=== PATIENT | male | born 1955 | race African-American/Black ===

== ENCOUNTER 2023-09-13 08:53 | Outpatient (CLI) | payer OTHER, MEDICARE, SELFPAY ==
[2023-09-13 19:23] LABS: Basophils Absolute Auto 0.1 K/mm3 (0.0-0.1); Basophils Percent Auto 0.8 % (0.2-1.2); Eosinophils Absolute Auto 0.1 K/mm3 (0-0.3); Eosinophils Percent Auto 1.1 % (0-4.4); Hematocrit 39.9 % (42.0-52.0); Hemoglobin 12.2 g/dL (14.0-18.0); Immature Granulocyte Absolute 0.01 K/mm3 (0.00-0.031); Immature Granulocyte Percent A 0.2 % (0-0.5); Lymphocytes Absolute Auto 2.55 K/mm3 (0.9-3.2); Lymphocytes Percent Auto 39.6 % (18.3-44.2); Mean Corpuscular HGB Conc 30.6 g/dl (32-36); Mean Corpuscular Hemoglobin 22.9 pg (26-34); Mean Platelet Volume 10.7 fl (7.4-10.4); Monocytes Absolute Auto 0.5 K/mm3 (0.1-0.6); Monocytes Percent Auto 7.8 % (2.6-8.5); Neutrophils Absolute Auto 3.3 K/mm3 (1.3-6.7); Neutrophils Percent Auto 50.5 % (45.5-73.1); Platelet Count Result 257 k/mm3 (150-375); Red Blood Count 5.32 M/mm3 (4.6-6.20); Red Cell Distribution Width 15.3 % (11.5-14.5); White Blood Count 6.4 K/mm3 (4.5-10.0)
[2023-09-13 20:33] LABS: Alanine Aminotransferase 16 U/L (6-50); Albumin Level 4.5 g/dL (3.5-5.1); Alkaline Phosphatase 69 U/L (38-126); Anion Gap 10 mmol/L (8-16); Aspartate Amino Transferase 44 U/L (17-59); Bilirubin,Total 0.5 mg/dL (0.2-1.3); Blood Urea Nitrogen 13 mg/dL (9-20); Carbon Dioxide 25 mmol/L (22-30); Chloride 103 mmol/L (98-107); Cholesterol 173 mg/dL (0-200); Estimated Glomerular Filt Rate > 60; Glucose 91 mg/dL (65-110); HDL Direct 42 mg/dL; Potassium 4.3 mmol/L (3.4-5.0); Sodium 138 mmol/L (137-145); Triglycerides 90 mg/dL (<150)
[2023-09-13 20:50] LABS: LDL Cholesterol Direct 98 mg/dL
[2023-09-13 20:57] LABS: Vitamin D 25 Hydroxy 42.5 ng/mL
== END 2023-09-13 08:54 | disposition home or self-care (01) ==
LOC: ANHGOSHLAB 08:55
PROVIDERS: PCP Family Medicine; Visit Provider Family Medicine
DX: Z00.00 Encounter for general adult medical examination without abnormal findings (principal); I10 Essential (primary) hypertension; E53.8 Deficiency of other specified B group vitamins; E78.5 Hyperlipidemia, unspecified; E55.9 Vitamin D deficiency, unspecified
CPT/HCPCS: 36415; 80053; 80061; 82306; 82607; 84443; 85025

== ENCOUNTER 2024-02-24 08:01 | Outpatient (CLI) | payer OTHER, MEDICARE, SELFPAY ==
[2024-02-24 19:13] LABS: Hematocrit 40.3 % (42.0-52.0); Mean Corpuscular HGB Conc 29.8 g/dl (32-36); Mean Corpuscular Hemoglobin 22.9 pg (26-34); Mean Corpuscular Volume 77.1 fl (80-100); Mean Platelet Volume 11.4 fl (7.4-10.4); Platelet Count Result 288 k/mm3 (150-375); Red Blood Count 5.23 M/mm3 (4.6-6.20); Red Cell Distribution Width 15.2 % (11.5-14.5); White Blood Count 5.7 K/mm3 (4.5-10.0)
[2024-02-24 19:25] LABS: Alanine Aminotransferase 17 U/L (6-50); Albumin Level 4.6 g/dL (3.5-5.1); Alkaline Phosphatase 65 U/L (38-126); Anion Gap 8 mmol/L (4-12); Aspartate Amino Transferase 35 U/L (17-59); Bilirubin,Total 0.7 mg/dL (0.2-1.3); Blood Urea Nitrogen 11 mg/dL (9-20); Calcium 8.9 mg/dL (8.4-10.2); Carbon Dioxide 25 mmol/L (22-30); Chloride 106 mmol/L (98-107); Cholesterol 147 mg/dL (0-200); Estimated Glomerular Filt Rate > 60; Glucose 88 mg/dL (65-110); HDL Direct 36 mg/dL; Potassium 4.2 mmol/L (3.4-5.0); Sodium 139 mmol/L (137-145); Triglycerides 77 mg/dL (<150)
[2024-02-24 19:39] LABS: LDL Cholesterol Direct 91 mg/dL
[2024-02-24 19:57] LABS: Prostate Specific Antigen 1.5 ng/mL (< OR = 4.0)
[2024-02-24 20:05] LABS: Vitamin D 25 Hydroxy 53.5 ng/mL
== END 2024-02-24 08:02 | disposition home or self-care (01) ==
PROVIDERS: PCP Family Medicine; Visit Provider Nurse Practitioner
DX: Z00.00 Encounter for general adult medical examination without abnormal findings (principal); I10 Essential (primary) hypertension; E55.9 Vitamin D deficiency, unspecified; Z12.5 Encounter for screening for malignant neoplasm of prostate
CPT/HCPCS: 36415; 80053; 80061; 82306; 84153; 84443; 85027; G0103

== ENCOUNTER 2024-06-28 09:01 | Outpatient (CLI) | payer OTHER, MEDICARE, SELFPAY ==
[2024-06-28 18:47] LABS: Basophils Percent Auto 0.7 % (0.2-1.2); Eosinophils Absolute Auto 0.1 K/mm3 (0-0.3); Hematocrit 41.6 % (42.0-52.0); Hemoglobin 12.5 g/dL (14.0-18.0); Immature Granulocyte Absolute 0.01 K/mm3 (0.00-0.031); Immature Granulocyte Percent A 0.2 % (0-0.5); Lymphocytes Absolute Auto 2.44 K/mm3 (0.9-3.2); Lymphocytes Percent Auto 40.3 % (18.3-44.2); Mean Corpuscular Hemoglobin 23.5 pg (26-34); Mean Platelet Volume 10.1 fl (7.4-10.4); Monocytes Absolute Auto 0.4 K/mm3 (0.1-0.6); Monocytes Percent Auto 6.8 % (2.6-8.5); Neutrophils Absolute Auto 3.1 K/mm3 (1.3-6.7); Platelet Count Result 309 k/mm3 (150-375); Red Blood Count 5.33 M/mm3 (4.6-6.20); Red Cell Distribution Width 15.4 % (11.5-14.5); White Blood Count 6.1 K/mm3 (4.5-10.0)
[2024-06-28 19:21] LABS: Alanine Aminotransferase 17 U/L (6-50); Albumin Level 4.8 g/dL (3.5-5.1); Alkaline Phosphatase 64 U/L (38-126); Anion Gap 16 mmol/L (4-12); Aspartate Amino Transferase 53 U/L (17-59); Bilirubin,Total 0.6 mg/dL (0.2-1.3); Blood Urea Nitrogen 10 mg/dL (9-20); Calcium 9.4 mg/dL (8.4-10.2); Carbon Dioxide 28 mmol/L (22-30); Chloride 89 mmol/L (98-107); Estimated Glomerular Filt Rate > 60; Glucose 85 mg/dL (65-110); Potassium 3.8 mmol/L (3.4-5.0); Sodium 133 mmol/L (137-145)
== END 2024-06-28 09:02 | disposition home or self-care (01) ==
LOC: ANHGOSHLAB 09:03
PROVIDERS: PCP Family Medicine; Visit Provider Family Medicine
DX: L29.9 Pruritus, unspecified (principal); I10 Essential (primary) hypertension; E78.5 Hyperlipidemia, unspecified; E03.9 Hypothyroidism, unspecified
CPT/HCPCS: 36415; 80053; 84443; 85025

== ENCOUNTER 2024-08-16 13:45 | Outpatient (CLI) | payer OTHER, MEDICARE, SELFPAY ==
--- NOTE | ~2024-08-16 | XR_ITS ---
CHEST RADIOGRAPH, PA AND LATERAL CLINICAL HISTORY: R05.3 - Chronic cough . COMPARISON: None available TECHNIQUE: PA and lateral views of the chest. FINDINGS The cardiomediastinal silhouette is unremarkable. The lungs are clear. Visualized osseous structures and soft tissues are unremarkable. IMPRESSION: No focal infiltrate or effusion. Reviewed, dictated and finalized at location A. [facility] [employer]
== END 2024-08-16 13:46 | disposition home or self-care (01) ==
LOC: MICIMG 13:46
PROVIDERS: PCP Family Medicine; Visit Provider Family Medicine
DX: R05.3 Chronic cough (principal)
CPT/HCPCS: 71046

== ENCOUNTER 2024-09-14 09:13 | Outpatient (CLI) | payer OTHER, MEDICARE, SELFPAY ==
[2024-09-14 13:14] LABS: Alanine Aminotransferase 19 U/L (6-50); Albumin Level 4.7 g/dL (3.5-5.1); Alkaline Phosphatase 70 U/L (38-126); Anion Gap 9 mmol/L (4-12); Aspartate Amino Transferase 62 U/L (17-59); Bilirubin,Total 0.8 mg/dL (0.2-1.3); Blood Urea Nitrogen 11 mg/dL (9-20); Calcium 9.3 mg/dL (8.4-10.2); Carbon Dioxide 28 mmol/L (22-30); Chloride 104 mmol/L (98-107); Cholesterol 196 mg/dL (0-200); Estimated Glomerular Filt Rate > 60; Glucose 96 mg/dL (65-110); HDL Direct 47 mg/dL; Potassium 4.3 mmol/L (3.4-5.0); Sodium 141 mmol/L (137-145); Triglycerides 84 mg/dL (<150)
[2024-09-14 13:32] LABS: LDL Cholesterol Direct 108 mg/dL
[2024-09-14 13:35] LABS: Hemoglobin A1C 6.5 % (<5.7)
== END 2024-09-14 09:14 | disposition home or self-care (01) ==
LOC: ANHGOSHLAB 09:15
PROVIDERS: PCP Family Medicine; Visit Provider Family Medicine
DX: E78.5 Hyperlipidemia, unspecified (principal); I10 Essential (primary) hypertension; R73.9 Hyperglycemia, unspecified; E03.9 Hypothyroidism, unspecified; E53.8 Deficiency of other specified B group vitamins
CPT/HCPCS: 36415; 80053; 80061; 82607; 83036; 84443

== ENCOUNTER 2024-11-13 09:49 | Outpatient (CLI) | payer MEDICARE, OTHER, SELFPAY ==
--- OUTSIDE RECORDS SUMMARY | 2024-11-13 10:29 | XMS_ITS | Continuity of Care Document ---
Author Organization [facility] nters Address [address] [place] [address] Phone Care Team Providers Care Pharmacy Salesperson Name Role Phone Jovanny Cook MD Unavailable Unavailable Allergies, Adverse Reactions, Alerts Substance Reaction Status Criticality No Known Allergies Active No Inform ation Medications Medication Instructions Dosage Effective Dates (start - stop) Status Comments rosuvastatin 10 mg tablet take 1 tablet by oral route every day 10 MG - Active hydrochlorothiazide 12.5 mg tablet take 1 tablet by oral route every day 12.5 MG - Active temporary supply fenofibrate nanocrystallized 145 mg tablet take 1 by Oral route every day 1 - Active temporary supply Pepcid 40 mg tablet take 1 tablet by oral route 2 times every day at bedtime 40 MG - Active enalapril 5 mg-hydrochlorothiazide 12.5 mg tablet take 1 tablet by oral route every day 1.00 tablet - Active temporary supply Tylenol Arthritis Pain 650 mg tablet,extended release take 1 tablet by oral route every 8 hours as needed swallowing whole with water. Do not break, crush, dissolve and/or chew. as needed 650 MG - Active Viagra 100 mg tablet take 1 tablet by oral route every day as needed approximately 1 hour before sexual activity 100 MG - Active enalapril 5 mg-hydrochlorothiazide 12.5 mg tablet take 1 tablet by oral route every day 1.00 tablet - No Longer Active temporary supply rosuvastatin 10 mg tablet take 1 tablet by oral route every day 10 MG - No Longer Active triamcinolone acetonide 0.5 % topical cream apply by topical route 2 times every day a thin layer to the affected area(s) 0.00 - No Longer Active Pepcid 40 mg tablet take 1 tablet by oral route 2 times every day at bedtime 40 MG - No Longer Active hydrochlorothiazide 12.5 mg tablet take 1 tablet by oral route every day 12.5 MG No Longer Active temporary supply Tylenol Arthritis Pain 650 mg tablet,extended release take 1 tablet by oral route every 8 hours as needed swallowing whole with water. Do not break, crush, dissolve and/or chew. as needed 650 MG - No Longer Active fenofibrate nanocrystallized 145 mg tablet take 1 by Oral route every day 1 - No Longer Active temporary supply Procedures Procedure Date OV EST DETAILED OV EST DETAILED OV EST COMPREHENSIVE OV EST COMPREHENSIVE OV EST COMPREHENSIVE OV EST COMPREHENSIVE OV EST COMPREHENSIVE OV EST COMPREHENSIVE OV EST DETAILED OV EST COMPREHENSIVE OV EST COMPREHENSIVE OV EST COMPREHENSIVE OV EST COMPREHENSIVE OV EST COMPREHENSIVE STREP A AG, EIA OV EST DETAILED AFTER HOURS CARE OV EST COMPREHENSIVE OV EST DETAILED OV EST COMPREHENSIVE AVULSION OF NAIL PLATE PART COMP1 Surgical trays OV EST MODERATE OV EST COMPREHENSIVE OV EST COMPREHENSIVE OV EST COMPREHENSIVE OV EST COMPREHENSIVE OV EST COMPREHENSIVE OV EST COMPREHENSIVE OV EST COMPREHENSIVE OV EST COMPREHENSIVE OV EST DETAILED URINALYSIS CLINITEK OV EST DETAILED AUDIOMETRY SCREEN DOT PE EST PREV 40 TO 64 YRS OLD 2014 URINALYSIS CLINITEK OV EST COMPREHENSIVE PREVENTIVE TEST 40 TO 64 YRS OLD 2013 INJECTION INFLUENZA 3 GT SPLIT VIRUS Aug OV EST COMPREHENSIVE OV EST COMPREHENSIVE OV EST COMPREHENSIVE INJECTION INFLUENZA 3 GT SPLIT VIRUS Jul PREVENTIVE TEST 40 TO 60 YRS OLD 2012 WORK Physical Billed To Insurance OV EST MODERATE OV EST COMPREHENSIVE OV EST COMPREHENSIVE OV EST COMPREHENSIVE OV EST COMPREHENSIVE OV EST COMPREHENSIVE VARICELLA ZOSTER IMMUNIZATION ADMIN ONEVACCINE INTRMUSCUL AR OV EST COMPREHENSIVE OV EST COMPREHENSIVE OV EST DETAILED OV EST DETAILED OV EST COMPREHENSIVE OV EST COMPREHENSIVE Advance Directives Directive Yes / No Effective Date File Name No Information Encounters Encounter Description Practice Location Reason(s) For Visit Diagnoses Date Provider Providers Copied on Encounter OV EST DETAILED [facility], [address], [place], [place], [id number], [place] tel:[phone] [facility] Follow Up of GERD (telehealth) (chief complaint)Fol low Up of Hyperlipidemi a (telehealth) (chief complaint)Fol low Up of Hypertension (telehealth) (chief complaint) Pure hyperglyceri demiaEssenti al (primary) hypertension Chronic GERDArthriti s, wrist -202 0 Cook Jovanny. [address] [facility], [id number] [place], [id number], [place]. tel:[phone] OV EST DETAILED [facility], [address], [place], [place], [id number], [place] tel:[phone] [facility] Follow Up of Hypertension (chief complaint)Fol low Up of Hyperlipidemi a (chief complaint)Fol low Up of GERD (chief complaint)Hea lth Maintenance (chief complaint) Essential hypertension Chronic GERDDietary counselingEx ercise counselingHy janina Palm s, wrist Dec- 0 Alisia Martin. [address], [id number] 0NS, [place], [place], [id number], [place]. tel: [phone] [facility], [address], [place], [place], [id number], [place] tel: [phone] [facility] hoarse voice (chief complaint)hea lth maintenance (chief complaint) Chronic hoarsenessBM I 38.0-38.9,ad ult 0 Joey Petty. [address], [id number] 0NS, [place], [place], [id number], [place]. tel: [phone] [facility], [address], [place], [place], [address], [place] tel: [phone] [facility] Follow Up of Hypertension (chief complaint)Fol low Up of Hyperlipidemi a (chief complaint)Fol low Up of GERD (chief complaint)Fol low Up of Erectile dysfunction (chief complaint)Hea lth Maintenance (chief complaint)Fat igue (chief complaint) Hypertension , benignPure hypercholest erolemia, unspecifiedC hronic GERDObesity, unspecified 9 Cookyenni Petty. [address], [id number] 0NS, [place], [place], [address], [place]. tel: [phone] [facility], [address], [place], [place], [id number], [place] tel: [phone] [facility] Follow Up of Labs (chief complaint)Hea lth Maintenance (chief complaint) Pure hypercholest erolemia, unspecifiedH ypertension, benignObesit y, unspecified 9 Cook Jovanny. [address], [id number] 0NS, [place], [place], [id number], [place]. tel: [phone] [facility], [address], [place], [place], [id number], tel: [phone] [facility] Follow Up of hypertension (chief complaint)Fol low Up of ED (chief complaint)Fol low Up of GERD (chief complaint)Fol low Up of hyperlipidemi a (chief complaint)hea lth maintenance (chief complaint) Male erectile dysfunction, unspecifiedH ypertension, benignPure hyperglyceri demiaChronic GERDObesity, unspecified [address] [facility]. [address], [id number] 0NS, [place], [place], [address], [place]. tel: [phone] [facility], [address], [place], [place], [id number], tel: [phone] [facility] hypertension (chief complaint)hyp erlipidemia (chief complaint)Hea lt Maintenance (chief complaint) Hypertension , benignHypert riglyceridem iaChronic GERDErectile dysfunction, unspecified erectile dysfunction typeBody mass index (BMI) 37.0-37.9, adult 9 [facility] Alek. [address] [id number] 0NS, [place], [place], [address], [place]. tel: [phone] [facility], [address], [place], [place], [address], [place] tel: [phone] [facility] Follow Up of hypertension (chief complaint)Fol low Up of erectile dysfunction (chief complaint)Fol low Up of hyperlipidemi a (chief complaint)Fol low Up of HSV (chief complaint)hea lt maintenance (chief complaint) Male erectile dysfunction, unspecifiedP ure hyperglyceri demiaEssenti al (primary) hypertension Obesity, unspecifiedC hronic GERD 9 [facility] Jovanny. [address], [id number] 0NS, [place], [place], [address], [place]. tel: [phone] [facility], [address], [place], [place], [address], [place] tel: [phone] [facility] Follow Up of ER Visit (chief complaint)Hea lth Maintenance (chief complaint) ColitisBMI 38.0-38.9,ad ultDietary counselingHe alth educationPos itive depression screening 8 Tieri Patience. [address], [id number] 0NS, [place], [place], [address], [place]. tel: [phone] [facility], [address], [place], [place], [address], [place] tel: [phone] [facility] Back pain (chief complaint)Fol low Up of Hypertension (chief complaint)Fol low Up of Hyperlipidemi a (chief complaint)Fol low Up of Erectile dysfunction (chief complaint)Hea lth Maintenance (chief complaint) Essential (primary) hypertension Pure hyperglyceri demiaMale erectile dysfunction, unspecifiedO besity, unspecified 8 Cook Jovanny. [address], [id number] 0NS, [place], [place], [id number], [place]. tel: [phone] [facility], [address], [place], [place], [address], [place] tel: [phone] [facility] Family [facility] Follow Up of Hypertriglyce ridemia (chief complaint)Hea lth Maintenance (chief complaint) Iron deficiency anemia, unspecified iron deficiency anemia typeObesity, unspecifiedO ther hyperlipidem ia 8 Cook Jovanny. [address], [id number] 0NS, [place], [place], [address], [place]. tel: [phone] [facility], [address], [place], [place], [address], [place] tel: [phone] [facility] Hypertension (follow up) (chief complaint)Fol low Up of Hyperglycerid emia (chief complaint)Hea lth Maintenance (chief complaint) Essential (primary) hypertension Pure hyperglyceri demiaMale erectile dysfunction, unspecifiedH erpes genitalis in menObesity, unspecified 8 [facility] Jovanny. [address], [id number] 0NS, [place], [place], [id number], [place]. tel: [phone] [facility], [address], [place], [place], [address], [place] tel: [phone] [facility] hypertension (chief complaint)hyp erlipidemia (chief complaint)Hea lth Maintenance (chief complaint) Essential (primary) hypertension Male erectile dysfunction, unspecifiedP ure hyperglyceri demiaObesity , unspecifiedH erpes genitalis in men Dec- 8 [facility] Jovanny. [address], [id number] 0NS, [place], [place], [id number], [place]. tel: [phone] [facility], [address], [place], [place], [address], [place] tel: [phone] [facility] hypertension (chief complaint)Hea lth Maintenance (chief complaint) Pure hyperglyceri demiaEssenti al (primary) hypertension Obesity, unspecified Sep- 7 Cook Jovanny. [address], [id number] 0NS, [place], [place], [id number], [place]. tel: [phone] [facility], [address], [place], [place], [address], [place] tel: [phone] [facility] sore throat (chief complaint) Acute pharyngitis, unspecified etiology Sep-3 0 7 Kiranwilliam Alek. [address] [id number] 0NS, [place], [place], [id number], [place]. tel: [phone] [facility], [address], [place], [place], [address], [place] tel: [phone] [facility] Follow Up of Hyperlipidemi a (chief complaint)Fol low Up of Hypertension (chief complaint)Fol low Up of Edema (chief complaint)Hea lth Maintenance (chief complaint) Essential (primary) hypertension Pure hyperglyceri demiaObesity , unspecifiedE ncounter for screening and preventative care Jun- 7 Joey Petty. [address], [id number] 0NS, [place], [place], [id number], [place]. tel: [phone] [facility], [address], [place], [place], [address], [place] tel: [phone] [facility] HTN (chief complaint)Hea lth maintenance (chief complaint)hyp erlipidemia (chief complaint) Essential (primary) hypertension Pure hyperglyceri demiaObesity , unspecifiedH ealth educationCol on cancer screening 7 Shauna Bonds. [address], [id number] 0NS, [place], [place], [facility], [place]. tel: [phone] [facility], [address], [place], [place], [address], [place] tel: [phone] [facility] Family [facility] Hypertension (chief complaint)Col d symptoms (chief complaint) Allergic rhinitis, unspecifiedE ssential (primary) hypertension Pure hyperglyceri demiaHerpes genitalis in menObesity, unspecified 7 Joey Petty. [address], [id number] 0NS, [place], [place], [address], [place]. tel: [phone] [facility], [address], [place], [place], [id number], [place] tel: [phone] [facility] toe nail removal (chief complaint) Ingrown left big toenailContu alyssa of left great toe with damage to nail, init encntr 6 Joey Petty. [address], [id number] 0NS, [place], [place], [address], [place]. tel: [phone] [facility], [address], [place], [place], [address], [place] tel: [phone] [facility] Follow Up of Paronychia of L great toe (chief complaint) Ingrown left big toenailHerpe s genitalis in menOther obesity due to excess calories 6 [facility]. [address], [id number] 0NS, [place], [place], [address], [place]. tel: [phone] [facility], [address], [place], [place], [address], [place] tel: [phone] [facility] Follow Up of Paronychia of L great toe (chief complaint) Paronychia of great toe of left footEssentia l (primary) hypertension Other obesity due to excess calories 6 [facility]. [address], [id number] 0NS, [place], [place], [address], [place]. tel: [phone] [facility], [address], [place], [place], [address], [place] tel: [phone] [facility] Hypertension (chief complaint)kallie t pain (chief complaint) Paronychia of great toe of left footEssentia l (primary) hypertension Pure hyperglyceri demiaUnspeci fied contact dermatitis, unspecified causeObesity , unspecified Jun- 6 [facility]. [address], [id number] 0NS, [place], [place], [address], [place]. tel: [phone] [facility], [address], [place], [place], [address], [place] tel: [phone] [facility] Follow Up of Candidiasis of penis (chief complaint) Herpes genitalis in menEssential (primary) hypertension Obesity, unspecified 0 6 [facility]. [address], [id number] 0NS, [place], [place], [address], [place]. tel: [phone] [facility], [address], [place], [place], [address], [place] tel: [phone] [facility] Follow Up of Hypertension (chief complaint)Fol low Up of ED (chief complaint)Fol low Up of Eczema (chief complaint) Essential (primary) hypertension Pure hyperglyceri demiaPedal edemaCandidi asis of penisObesity , unspecifiedV isit for suture removal Gee-0 6-201 6 [facility]. [address], [id number] 0NS, [place], [place], [address] [place] [address], [place]. tel: [phone] [facility], [address], [place], [place], [address], tel: [phone] [facility] Follow Up of Hypertension (chief complaint)Fol low Up of Hyperglycerid emia (chief complaint)Fol low Up of ED (chief complaint)Fol low Up of Eczema (chief complaint) Essential (primary) hypertension Pure hyperglyceri demiaMale erectile dysfunction, unspecifiedU nspecified contact dermatitis, unspecified causeObesity , unspecified Mar-0 8-201 6 [facility]. [address], [id number] 0NS, [place], [place], [address] [place] [address], [place]. tel: [phone] [facility], [address], [place], [place], [id number], [place] tel: [phone] [facility] Hyperlipidemi a (follow up) med refill (chief complaint)Hyp ertension (follow up) med refill (chief complaint)ecz mendez cream triamcinolone refill (chief complaint)ED med refill (chief complaint) Essential (primary) hypertension Pure hyperglyceri demiaMale erectile dysfunction, unspecifiedO besity, unspecifiedU nspecified contact dermatitis, unspecified cause Dec-0 7-201 5 [facility]. [address], [id number] 0NS, [place], [place], [address], [place]. tel: [phone] OV [facility], [address], [place], [place], [address], [place] tel: [phone] [facility] Hyperlipidemi a med refills (chief complaint)Hyp ertension (follow up) (chief complaint)tri amcinolone acetonide refills (chief complaint) Essential (primary) hypertension Pure hyperglyceri demiaUnspeci fied contact dermatitis, unspecified causeObesity , unspecified Joey Petty. [address], [id number] 0NS, [place], [place], [id number], [place]. tel: [phone] [facility], [address], [place], [place], [address], [place] tel: [phone] [facility] HTN (chief complaint)HYP ERLIPIDEMIA (chief complaint)ECZ MENDEZ (chief complaint) Hypertension , benignHypert riglyceridem iaErectile dysfunctionE [facility] Health education 5 Tonio Bowman. [address], [id number] 0NS, [place], [place], [address], [place]. tel: [phone] [facility], [address], [place], [place], [address], [place] tel: [phone] [facility] Physical chauffer license. (chief complaint) GENERAL MEDICAL EXAMHealth examination of defined subpopulatio nsObesity 5 Betsy Shafer. [address], [id number] 0NS, [place], [place], [id number], [place]. tel: [phone] [facility], [address], [place], [place], [address], [place] tel: [phone] [facility] HTN (chief complaint)hyp ertriglycerid emia (chief complaint)ED (chief complaint) Hypertension , benignHypert riglyceridem iaErectile dysfunctionO [facility] 5 Joey Petty. [address], [id number] 0NS, [place], [place], [id number], [place]. tel: [phone] PREVENTIVE TEST 40 TO 64 YRS OLD [facility], [address], [place], [place], [id number], [place] tel: [phone] [facility] wellness exam (chief complaint) Well adult health checkHyperte nsion, benignHypert riglyceridem iaErectile dysfunctionE czemaObesity 4 [facility]. [address], [id number] 0NS, [place], [place], [id number], [place]. tel: [phone] [facility], [address], [place], [place], [address], [place] tel: [phone] [facility] rash (chief complaint)Med refill (chief complaint) Screening for depressionHy pertension, benignHypert riglyceridem iaErectile dysfunctionE czemaObesity 4 [facility]. [address], [id number] 0NS, [place], [place], [address], [place]. tel: [phone] [facility], [address], [place], [place], [address], [place] tel: [phone] [facility] neck pain (chief complaint)hyp ertension (chief complaint)hyp erlipidemia (chief complaint) HYPERTENSION BENIGNHypert riglyceridem iaPain, neckObesityD ietary surveillance and counselingEx ercise counseling 4 [facility]. [address], [id number] 0NS, [place], [place], [address], [place]. tel: [phone] [facility], [address], [place], [place], [id number], [place] tel: [phone] [facility] hypertension (chief complaint)hyp ertriglycerid emia (chief complaint)spencer matitis (chief complaint) HYPERTENSION BENIGNHypert riglyceridem iaObesityDie tary counselingEx ercise counselingCa ndidal intertrigoIn fluenza Vaccination 3 [facility]. [address], [id number] 0NS, [place], [place], [address], [place]. tel: [phone] PREVENTIVE TEST 40 TO 60 YRS OLD [facility], [address], [place], [place], [id number], [place] tel: [phone] [facility] Family [facility] work physical (chief complaint) Healthcare maintenanceO besityDietar y counselingEx ercise counselingGE NERAL MEDICAL EXAM 3 No Information [facility], [address], [place], [place], [id number], [place] tel: [phone] [facility] rash (chief complaint) DERMATITIS CONTACT NOS or EczemaObesit y 3 Tucker Christopher. [address], [id number] 0NS, [place], [address], [place]. tel: [phone] [facility], [address], [place], [place], [id number], [place] tel: [phone] [facility] rash (chief complaint) Hypertension , benignHyperu ricemiaDerma titisObesity Hypertriglyc eridemia 3 [facility]. [address], [id number] 0NS, [place], [place], [address], [place]. tel: [phone] [facility], [address], [place], [place], [id number], [place] tel: [phone] [facility] hypertension (chief complaint) Hypertriglyc eridemiaHYPE RTENSION BENIGNHyperu ricemiaObesi ty 3 [facility]. [address], [id number] 0NS, [place], [place], [address], [place]. tel: [phone] [facility], [address], [place], [place], [address], [place] tel: [phone] [facility] Practice hypertension (follow up) (chief complaint)ere ctile dysfunction (chief complaint)nikia at hand swelling (chief complaint) Screening for depressionIM POTENCE ORGANIC ORGANObesity 3 Joey Petty. [address], [id number] 0NS, [place], [place], [address], [place]. tel: [phone] [facility], [address], [place], [place], [address], [place] tel: [phone] [facility] hypertension (follow up) (chief complaint) IMPOTENCE ORGANIC ORGAN 2 Joey Petty. [address], [id number] 0NS, [place], [place], [address], [place]. tel: [phone] [facility], [address], [place], [place], [address], [place] tel: [phone] [facility] hypertension (chief complaint) HYPERTENSION BENIGNObesit y 2 Cookyenni Kento. [address], [id number] 0NS, [place], [place], [address], [place]. tel: [phone] [facility], [address], [place], [place], [id number], [place] tel: [phone] [facility] Nursing imunization (chief complaint) No Information 2 Joey Petty. [address], [id number] 0NS, [place], [place], [address], [place]. tel: [phone] [facility], [address], [place], [place], [address], [place] tel: [phone] [facility] Practice f/u herpes (chief complaint)hyp ertension (chief complaint) ALLERGIC RHINTIS 2 Cookyenni Petty. [address], [id number] 0NS, [place], [place], [address], [place]. tel:[phone] [facility], [address], [place], [place], [address], [place] tel:[phone] [facility] f/u rash to to left side of chest, arm and back (chief complaint) Neuralgia, post-herpeti cHYPERTENSIO N BENIGNObesit y 2 Joey Arenasnando. [address], [id number] 0NS, [place], [place], [address], [place]. tel:[phone] OV [facility], [address], [place], [place], [address], [place] tel:[phone] [facility] shoulder pain (chief complaint) Herpes zoster without mention of complication HYPERTENSION BENIGNIMPOTE NCE ORGANIC ORGANATOPIC DERMATITUS-N OS 2 Betsy Shafer. [address], [id number] 0NS, [place], [place], [address], [place]. tel:[phone] [facility], [address], [place], [place], [address], [place] tel:[phone] [facility] hypertension (chief complaint)ere ctile dysfunction (chief complaint) HYPERTENSION BENIGNIMPOTE NCE ORGANIC ORGANObesity Other atopic dermatitis and related conditionsHY PERTENSION BENIGNObesit y 1 Joey Arenasnando. [address], [id number] 0NS, [place], [place], [address], [place]. tel:[phone] Family History Family Member Type Diagnosis Age At Onset Problem (finding) No family history of St roke Mother Problem (finding) Diabetes mellitus Problem (finding) No family history of Ca ncer Problem (finding) No family history of Di abetes mellitus Father Problem (finding) Hypertension Father Problem (finding) Diabetes mellitus Mother Problem (finding) Hypertension Problem (finding) No family history of Hy pertension Immunizations Vaccine Date Status Comments tetanus and diphtheria toxoids, adsorbed, preservative free, for adult use not administered Source: New Immuniza tion Record Influenza, seasonal, injectable not administered Source: New Immuniza tion Record Influenza, seasonal, injectable administered Source: New Immuniza tion Record Flu (split) (3 yrs or older) administered Source: New Immunization Record Zoster administered Source: New Imm unization Record Payers Payer name Insurance type Covered green party ID Authoriza tion(s) [facility] CI [id number] [facility] CI [id number] [facility] CI [id number] Social History Type Description Quantity Date Captured Comments Alcohol Use Details Unknown Caffeine Use Details Unknown Tobacco Use Status No Information Smoking Status No Information Sex Male Sexual Orientation Straight or heterosexual Gender Identity Male Chief Complaint And Reason For Visit From encounter dated '02/26/2020 10:45'. Follow Up of GERD (telehealth) (chief complaint) Follow Up of Hyperlipidemia (telehealth) (chief complaint) Follow Up of Hypertension (telehealth) (chief complaint). Description: Risk factors include family history HTN, gout or CAD, inactive lifestyle, male gender and obesity. Pertinent negatives include chest pain, claudication, dyspnea, fatigue, hematuria, irregular heartbeat/palpitations and vomiting. Reason For Referral Reason For Referral No Information Plan Of Treatment Date Type Action Status Goal BMP. Due on due Goal PHQ-9. Due on du e Goal Dental Exam. Due on 975 due Goal Colon Screening (fecal occult). Due on due Goal Hep C Ab. Due on due Goal Lipid panel. Due on 020 due Goal BMP. Due on due Goal PHQ-9. Due on du e Goal Dental Exam. Due on 975 due Goal Hep C Ab. Due on due Goal Lipid panel. Due on due Goal Colon Screening (fecal occult). Due on due Goal Lipid panel. Due on due Goal Hep C Ab. Due on due Goal Colon Screening (fecal occult). Due on due Goal Dental Exam. Due on 97 due Goal PHQ-9. Due on du e Goal BMP. Due on due Goal BMP. Due on due Goal PHQ-9. Due on du e Goal Colon Screening (fecal occult). Due on due Goal Dental Exam. Due on 97 due Goal Hep C Ab. Due on due Goal Lipid panel. Due on due Goal BMP. Due on due Goal PHQ-9. Due on du e Goal Colon Screening (fecal occult). Due on due Goal Dental Exam. Due on 97 due Goal Hep C Ab. Due on due Goal Lipid panel. Due on due Goal Dental Exam. Due on 97 due Goal Colon Screening (fecal occult). Due on due Goal PHQ-9. Due on du e Goal Hep C Ab. Due on due Goal BMP. Due on due Goal HIV Ab. Due on d ue Goal PHQ-9. Due on du e Goal Hep C Ab. Due on due Goal Colon Screening (fecal occult). Due on due Goal Dental Exam. Due on due Goal Lipid panel. Due on due Goal Dietary manageme nt education, guidance, and counseling completed Goal BMP. Due on due Goal HIV Ab. Due on d ue Goal Hep C Ab. Due on due Goal Dental Exam. Due on due Goal Colon Screening (fecal occult). Due on due Goal PHQ-9. Due on du e Goal Lipid panel. Due on due Goal Colon Screening (fecal occult). Due on due Goal Dental Exam. Due on due Goal HIV Ab. Due on d ue Goal BMP. Due on due Goal Hep C Ab. Due on due Goal PHQ-9. Due on du e Goal Lipid panel. Due on due Goal BMP. Due on due Goal HIV Ab. Due on d ue Goal Colon Screening (fecal occult). Due on due Goal PHQ-9. Due on du e Goal Dental Exam. Due on due Goal Hep C Ab. Due on due Goal Lipid panel. Due on due Goal Lipid panel. Due on due Goal BMP. Due on due Goal HIV Ab. Due on d ue Goal PHQ-9. Due on du e Goal Dental Exam. Due on 97 due Goal Colon Screening (fecal occult). Due on due Goal Hep C Ab. Due on due Goal BMP. Due on due Goal HIV Ab. Due on d ue Goal PHQ-9. Due on du e Goal Dental Exam. Due on 97 due Goal Hep C Ab. Due on due Goal Colon Screening (fecal occult). Due on due Goal Lipid panel. Due on 019 due Goal PHQ-9. Due on du e Goal Dental Exam. Due on 97 due Goal Hep C Ab. Due on due Goal HIV Ab. Due on d ue Goal Colon Screening (fecal occult). Due on due Goal Hep C Ab. Due on due Goal Dental Exam. Due on 016 due Goal HIV Ab. Due on d ue Goal Colonoscopy, fle xible; diagnostic. Due on due Goal Influenza vaccine. Due on due Goal Colon Screening (fecal occult). Due on due Goal Colon Screening (fecal occult). Due on due Goal Well Adult Visit. Due on February due Goal Td/Tdap vaccine. Due on due Goal Influenza vaccine. Due on No due Goal PHQ-9. Due on du e Goal HIV Ab. Due on d ue Goal Dental Exam. Due on due Goal Colonoscopy, fle xible; diagnostic. Due on due Goal Hep C Ab. Due on due Goal Colon Screening (fecal occult). Due on due Goal Hep C Ab. Due on due Goal Influenza vaccine. Due on No due Goal HIV Ab. Due on d ue Goal PHQ-9. Due on du e Goal Dental Exam. Due on due Goal Well Adult Visit. Due on February due Goal Td/Tdap vaccine. Due on due Goal Colonoscopy, fle xible; diagnostic. Due on due Goal Colon Screening (fecal occult). Due on due Goal Zoster vaccine due Goal Colonoscopy, fle xible; diagnostic. Due on due Goal Influenza vaccine. Due on due Goal Dental Exam. Due on due Goal HIV Ab. Due on d ue Goal Well Adult Visit. Due on February due Goal Hep C Ab. Due on due Goal Td/Tdap vaccine. Due on due Goal Colonoscopy, fle xible; diagnostic. Due on due Goal HIV Ab. Due on d ue Goal Colon Screening (fecal occult). Due on due Goal Td/Tdap vaccine. Due on due Goal Well Adult Visit. Due on Oct due Goal Influenza vaccine. Due on No due Goal Dental Exam. Due on due Goal Hep C Ab. Due on due Goal Influenza vaccine. Due on No due Goal Hep C Ab. Due on due Goal HIV Ab. Due on d ue Goal Well Adult Visit. Due on Sep due Goal Colonoscopy, fle xible; diagnostic. Due on due Goal Colon Screening (fecal occult). Due on due Goal Dental Exam. Due on due Goal Td/Tdap vaccine. Due on due Goal Influenza vaccine. Due on No due Goal Hep C Ab. Due on due Goal Colon Screening (fecal occult). Due on due Goal Td/Tdap vaccine. Due on due Goal Colonoscopy, fle xible; diagnostic. Due on due Goal Well Adult Visit. Due on Aug due Goal HIV Ab. Due on d ue Goal Colonoscopy, fle xible; diagnostic. Due on due Goal Colon Screening (fecal occult). Due on due Goal Influenza vaccine. Due on No due Goal Hep C Ab. Due on due Goal HIV Ab. Due on d ue Goal Well Adult Visit. Due on Jul due Goal Td/Tdap vaccine. Due on due Goal Colonoscopy, fle xible; diagnostic. Due on due Goal Colon Screening (fecal occult). Due on due Goal Zoster vaccine due Goal Influenza vaccine. Due on due Goal HIV Ab. Due on d ue Goal COPD SCREENING due Goal Td/Tdap vaccine. Due on due Goal Hep C Ab. Due on due Goal Well Adult Visit. Due on Jun due Goal Hep C Ab. Due on due Goal Colonoscopy, fle xible; diagnostic. Due on due Goal Colon screening. Due on due Goal BMP/CMP/LFT's. Due on due Goal Colon Screening (fecal occult). Due on due Goal PPD (TST). Due on 6 due Goal Hep C Ab. Due on due Goal Colon Screening (fecal occult). Due on due Goal Colonoscopy, fle xible; diagnostic. Due on due Goal Colon screening. Due on due Goal PPD (TST). Due on due Goal BMP/CMP/LFT's. Due on due Goal PHQ-9. Due on du e Goal BMP/CMP/LFT's. Due on due Goal Influenza vaccine. Due on due Goal FOBT. Due on due Goal BMP. Due on due Goal Colon screening due Goal COPD SCREENING due Goal CMP. Due on due Goal Lipid panel. Due on 017 due Goal BMP/CMP/LFT's. Due on due Goal FOBT. Due on due Goal Influenza vaccine. Due on due Goal CMP. Due on due Goal Lipid panel. Due on 015 due Goal PHQ-9. Due on du e Goal BMP/CMP/LFT's. Due on due Goal Dental Exam. Due on 014 due Goal Zoster vaccine due Goal FOBT. Due on due Goal Echocardiogram. Due on due Goal ECG. Due on due Goal Flex Sigmoid. Due on 2014 due Goal Shingles (Zoster). Due on due Goal FOBT. Due on due Goal Dental Exam. Due on 015 due Goal Abdominal Ultras ound. Due on due Goal DTAP. Due on due Goal Td vaccine. Due on 15 due Goal HIV Ab. Due on d ue Goal Zoster (if over 60 yrs). Due on due Goal Depression scree nguyễn. Due on due Goal Abdominal Ultras ound. Due on due Goal Depression scree nguyễn. Due on due Goal Flex Sigmoid. Due on 2014 due Goal Td vaccine. Due on 15 due Goal FOBT. Due on due Goal Shingles (Zoster). Due on due Goal DTAP. Due on due Goal Dental Exam. Due on 015 due Goal Zoster (if over 60 yrs). Due on due Goal ECG. Due on due Goal Echocardiogram. Due on due Goal HIV Ab. Due on d ue Goal HIV Ab. Due on d ue Goal FOBT. Due on due Goal Td vaccine. Due on 15 due Goal Abdominal Ultras ound. Due on due Goal Depression scree nguyễn. Due on due Goal Flex Sigmoid. Due on 2014 due Goal DTAP. Due on due Goal Shingles (Zoster). Due on due Goal Zoster (if over 60 yrs). Due on due Goal Dental Exam. Due on 015 due Goal Echocardiogram. Due on due Goal Urinalysis due Goal ECG. Due on due Goal Lipid panel. Due on 015 due Goal Urinalysis . Due on 014 due Goal Diabetes screening due Goal CMP. Due on due Goal ECG. Due on due Goal Echocardiogram. Due on due Goal Zoster vaccine due Goal Zoster (if over 60 yrs). Due on due Goal Td vaccine. Due on 14 due Goal Shingles (Zoster). Due on due Goal PHQ-9. Due on du e Goal FOBT. Due on due Goal Abdominal Ultras ound. Due on due Goal Dental Exam. Due on 014 due Goal Depression scree nguyễn. Due on due Goal DTAP. Due on due Goal Flex Sigmoid. Due on 2013 due Goal HIV Ab. Due on d ue Goal Echocardiogram. Due on due Goal Lipid panel. Due on 014 due Goal Abdominal Ultras ound. Due on due Goal ECG. Due on due Goal Abdominal Ultras ound. Due on due Goal Echocardiogram. Due on due Goal ECG. Due on due Goal Lipid panel. Due on 012 due Referral Ordered: ENT (related to Chronic hoarseness) ordered Referral Ordered: Referrals: ENT. Evaluate and treat ordered Referral Ordered: Referrals: Gastroenterology. Diagnostic testing ordered Referral Ordered: Referrals: Dentistry. Evaluate and treat Appointment date/timeframe: Today ordered Referral Ordered: COLONOSCOPY WITH BX SINGLE OR MULTIPLE ordered Future Order: Lab Order CBC with Diff ([id number]), Sent on: Sent Future Order: Lab Order CMP ([id number]), S ent on: Sent Future Order: Lab Order LIPID PA TRISTA ([id number]), Sent on: Sent Future Order: Lab Order TSH ([id number]), S ent on: Sent Future Order: Lab Order URIC ACI D ([id number]), Sent on: Sent Future Order: Lab Order URINALYS IS ([id number]), Sent on: Sent Future Order: Lab Order CMP ([id number]), S ent on: Sent Future Order: Lab Order CBC w/di ff ([id number]), Sent on: Sent Future Order: Lab Order Lipid Pa trista ([id number]), Sent on: Sent Future Order: Lab Order TSH ([id number]), S ent on: Sent History Of Present Illness Encounter Date Complaint History Of Prese nt Illness Follow Up of Hypertension ([facility]) Risk factors include family history HTN, gout or CAD, inactive lifestyle, male gender and obesity. Pertinent negatives include chest pain, claudication, dyspnea, fatigue, hematuria, irregular heartbeat/palpitations and vomiting. Follow Up of GERD (telehealth) Follow Up of Hyperli pidemia (telehealth) Follow Up of Hypertension Follow Up of Hyperlipidemia Follow Up of GERD Health Maintenance vaccines due hoarse voice Pt sts his voice has been hoarse for 3-3.5 weeks. Pt denies any throat pain. health maintenance Flu and Td du e Follow Up of Hypertension Follow Up of Hyperlipidemia Follow Up of Erectile dysfunctio n Health Maintenance flu, tdap due Fatigue The symptoms beg an 1 month ago. Follow Up of GERD Follow Up of Labs Health Maintenance Flu, Td, Tdap , Zoster vaccines due Follow Up of hypertension Follow Up of ED Follow Up of GERD Follow Up of hyperlipidemia health maintenance Hep C screeni ng dueTd and zoster vaccines due hypertension Risk factors inc lude family history HTN, gout or CAD, inactive lifestyle, male gender and obesity. hyperlipidemia Risk factors inc lude age over 50. Health Maintenance Tetanus due Follow Up of hypertension Follow Up of erectile dysfunctio n Follow Up of hyperlipidemia Follow Up of HSV health maintenance Hep C screeni ng dueflu and Td vaccines due Health Maintenance Td, flu duePH Q 12, JORGE declined Follow Up of ER Visit ABd pain a nd vomiting in the ER on 08-14 ct scan showed colitis he was treated with Flagyl and Cipro. He stopped taking the antibiotics as of yesterday. He had a colonoscopy done in [place] about one month ago that he says was normal but he was told to take Iron supplements. Pt has history of alcohol abuse but has not drank in about 25 years, former smoker. Vomiting and diarrhea are gone but he still complains of some mild abd pain. He is slowly getting his appetite back Follow Up of Hypertension Risk f actors include family history HTN, gout or CAD, inactive lifestyle, male gender and obesity. There are no associated symptoms. Follow Up of Hyperlipidemia Risk factors include age over 50. The patient is adhering to medication and follow-up for their hyperlipidemia. There are no associated symptoms. Back pain Onset: 10 years ago. The problem is changing in character. Location of pain is middle back and lower back.The patient describes the pain as an ache and discomforting. Symptoms are aggravated by bending and sitting. Additional information: Since several years. Follow Up of Erectile dysfunctio n Health Maintenance Due for flu,t d,colon screen. Follow Up of Hypertriglyceridemi a Discuss lab results Health Maintenance Tdap Hypertension (follow up) Follow Up of Hyperglyceridemia Health Maintenance tdap, colonos copy due hypertension Risk factors inc lude family history HTN, gout or CAD, inactive lifestyle, male gender and obesity. There are no associated symptoms. Additional information: Med refill hyperlipidemia Risk factors inc lude age over 50. Additional information: Med refill. Health Maintenance Due for flu,t d,colon screen,colonoscopy. hypertension It is currently stable. Risk factors include inactive lifestyle, male gender and obesity. There are no associated symptoms. Additional information: Med refill Health Maintenance Due for flu,t d,colonoscopy. sore throat Onset: 1 Day. Sy mptoms are not associated with sick family member and smoker. Pertinent negatives include cough. Follow Up of Hyperlipidemia Risk factors include age over 50. Additional information: patient is here for his 3 month follow up. needs medication refill. Follow Up of Hypertension Risk f actors include inactive lifestyle, male gender and obesity. Additional information: patient is here for 3 month follow up needs medication refill Follow Up of Edema Patient here to follow up on edema needs medication refill Health Maintenance Tdap and flu due Health maintenance Needs wellnes s and HTN. hyperlipidemia Risk factors inc lude age over 50. Pertinent negatives include chest pain, claudication, constant hunger, constipation, diaphoresis, diarrhea, dizziness, dysesthesias, dyspnea, excessive thirst, foot ulcer, frequent infections, heartburn, hematuria, hypoglycemic episodes, impotence/erectile dysfunction, increased fatigue, joint pain, myalgia, nausea, nocturia, palpitations, polydipsia, polyuria, rash, slow healing, transient weakness, vision loss, vomiting, weight gain and weight loss. Additional information: as above. HTN check up and med refills. pt does not check his BP or watch sodium/caffeine intake or get regular physical exercise. pt is feeling well physically. Hypertension Risk factors inc lude inactive lifestyle, male gender and obesity. Pertinent negatives include chest pain, claudication, confusion, diaphoresis, dyspnea, epistaxis, fatigue, headache, hematuria, irregular heartbeat/palpitations, nausea, tinnitus, transient weakness, tremor, visual disturbances and vomiting. Additional information: Pt is requesting a refill on Enalapril 5mg- HCTZ 12.5mg Cold symptoms Onset: 1 day ago . Associated symptoms include nasal congestion, rhinitis and rhinorrhea. Pertinent negatives include cough, dyspnea, epistaxis and fatigue. toe nail removal Follow Up of Paronychia of L gre at toe Follow Up of Paronychia of L gre at toe Pt stated swelling has went down since taking abx. Hypertension Risk factors inc lude inactive lifestyle, male gender and obesity. Additional information: check up & medication refill. Pt states he did not take meds today. foot pain Onset: 3 weeks a go. Location: left foot (big toe). Context: there is no injury. Hand Dominance: right. Additional information: pt c/o feels like he has ingrown toe nail. Swelling, no discharge. Follow Up of Candidiasis of peni s lab test results collected on 03/16/2016 Follow Up of Hypertension Risk f actors include inactive lifestyle, male gender, obesity, inactive lifestyle, male gender and obesity. Additional information: swelling, sock impressions around calf Follow Up of ED Follow Up of Eczema Follow Up of Hypertension Risk f actors include inactive lifestyle, male gender and obesity. Additional information: Pt needs refills on enalapril HCT 5-12.5mg Follow Up of ED Pt needs refills on medication viagra 100mg. Follow Up of Hyperglyceridemia P T needs refills on medication fenofibrate 160mg. 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 [employer], SEE FORM, NO ACTIVE C/O. HX HTN, DYSLIPIDEMIA, ON MEDS HTN hypertriglyceridemia ED wellness exam rash The patient pres ents for rash. This episode began 2 weeks ago. The symptom(s) are described as moderate. Affected area(s) include right arm(s) and left leg(s). The patient describes the affected area(s) as itchy and stinging. Associated symptoms include dry skin and pruritus. Med refill Patient states n eed refill on meds bp and cholesterol meds. hypertension hyperlipidemia neck pain There is radiati on of pain to the left hand. The patient describes the pain as sharp. The event(s) surrounding the occurrence of the symptom do not include injury. Relieving factors tried include OTC medications. Functional Status Date Functional Assessmen t No Information Instructions Date Instruction Additional Infor mation refill med(s), f/u i n 3 months, maintain low sodium diet( less then 2 gm per day), limit alcohol consumption to < 1 oz per day, maintain adequate clear liquid intake. Related to Essential (primary) hypertension refill med, stop smo yevgeniy, avoid alcohol, decrease caffeine, avoid chocolate, peppermint, citrus, onions and spicy foods. Related to Chronic GERD refill med, f/u in 3 months, adviced to maintain low fat diet, or follow the so called mediterranean diet . maintenance of healthy body weight, avoidance of tobacco products, and adherence to a regiment of physical activity. Telehealth ( interactive communication accepted by patient) done. Related to Pure hyperglyceridemia med (s) refilled. 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 It can:-Burn calories, which helps people control their weight-Help control blood sugar levels in people with diabetes-Lower blood pressure, especially in people with high blood pressure-Lower stress and help with depression-Keep bones strong, so they don't get thin and break easily-Lower the chance of dying from heart disease Related to Exercise counseling Today your HGB A1C w as- Goal is less than 7Things to do everyday:check blood sugar daily and record itcheck your feet for sores or rednesswear shoes and socks that fit welltake all of the medications as directedfollow a meal planbe activeThings that you need yearly:Lipid panelUrine albumin testRetinal eye exam-- Please make appointmentFollow up in 3 months Related to Dietary counseling Medication refilled for 3 months todayFollow up in 3 months for medication refill-DASH diet- Fruits and vegetables 4-5 servings or each a day, Whole grains or Fiber 6-8 servings daily, Low fat dairy, -Lean meats- up to 2 servings a day-Less than 2.4 grams of Sodium a day- read labels, avoid soda and junk food.-Counseled on the serious effects of uncontrolled high blood pressure, such as increase risk for stroke, heart attack, and kidney disease. -Check blood pressure at least 3 times a week. -Record readings and bring to next appointment. -Call clinic if readings are below 100/60 or you are running above 140/90. Related to Essential hypertension Lifestyle changes in clude:Reduce saturated fat to < 7% of calories and reduce cholesterol to <200 mg/day- read labels on foods Increase fiber dailyWork on weight managementIncrease physical activityFollow up in 3 months for labs Related to Hypercholesteremia refill meds Avoid tr iggers such as spicy, citrus, acidic, fried, fatty foods as discussed.Limit caffeine and alcohol intake. Eat smaller meals more frequently to reduce symptoms. Avoid eating 2 hours before bedtime. Related to Chronic GERD Adviced aerobic exer cises (such as brisk walking,bicycling or stationary, swimming) for 30 to 90 minutes 5 to 7 x per week. TV viewing to less than 2-hour per day.Moderation in diet, avoid calorie-dense and nutirent-poor foods ( such as sweetened beverages and processed foods) Related to BMI 38.0-38.9,adult for 3 weeks Related to Chron ic hoarseness Adviced aerobic exer cises (such as brisk walking,bicycling or stationary, swimming) for 30 to 90 minutes 5 to 7 x per week. TV viewing to less than 2-hour per day.Moderation in diet, avoid calorie-dense and nutirent-poor foods ( such as sweetened beverages and processed foods) Related to Obesity, unspecified refilled med (s) and follow-up in 3 months. adviced to maintain low fat, low cholesterol diet or follow the so-called Mediterranean diet ,maintenance of healthy body weight, avoidance of tobacco products, and adherance to a regimen of physical activity. Related to Pure hypercholesterolemia, unspecified med (s) refilled. -s top smoking,avoid alcohol, decrease caffeine,avoid chocolate, peppermint, citrus, onions and spicy foods. Related to Chronic GERD Adequately controlle d, med (s) refilled and follow-up care in 3 months. Related to Hypertension, benign Adviced aerobic exer cises (such as brisk walking,bicycling or stationary, swimming) for 30 to 90 minutes 5 to 7 x per week. TV viewing to less than 2-hour per day.Moderation in diet, avoid calorie-dense and nutirent-poor foods ( such as sweetened beverages and processed foods) Related to Obesity, unspecified continue current med (s) Related to Hypertension, benign reviewed labs result s and other tests with the patient in detail. discontinue med (s) new med(s) started adviced to maintain low fat, low cholesterol diet or follow the so-called Mediterranean diet ,maintenance of healthy body weight, avoidance of tobacco products, and adherance to a regimen of physical activity. Related to Pure hypercholesterolemia, unspecified refilled med (s) and follow-up in 3 months. -stop smoking,avoid alcohol, decrease caffeine,avoid chocolate, peppermint, citrus, onions and spicy foods. Related to Chronic GERD Adviced aerobic exer cises (such as brisk walking,bicycling or stationary, swimming) for 30 to 90 minutes 5 to 7 x per week. TV viewing to less than 2-hour per day.Moderation in diet, avoid calorie-dense and nutirent-poor foods ( such as sweetened beverages and processed foods) Related to Obesity, unspecified refilled med (s) and follow-up in 3 months. adviced to maintain low fat, low cholesterol diet or follow the so-called Mediterranean diet ,maintenance of healthy body weight, avoidance of tobacco products, and adherance to a regimen of physical activity. Related to Pure hyperglyceridemia refilled med (s) and follow-up in 3 months. Related to Male erectile dysfunction, unspecified Adequately controlle d, med (s) refilled and follow-up care in 3 months. Related to Hypertension, benign Continue the same Me dication. Refill(s) given. Related to Erectile dysfunction, unspecified erectile dysfunction type Continue the same Me dication. Refill(s) given. Avoid spicy food, alcoholic beverages and NSAIDs. Elevate head when sleeping and avoid food and fluid intake 2-3 hours before bed. Related to Chronic GERD Continue the same Me dication. Refill(s) given. Advised low-fat, low Cholesterol and low Carb diet. Encouraged to increase physical activity, aerobic exercise, running, walking or biking 30-60 minutes per day or as tolerated to maintain a healthy weight. Related to Hypertriglyceridemia Continue the same Me dication. Refill(s) given. Discussed lifestyle modifications. Advised low Carb, low Fat, low Salt (DASH) diet and encouraged to increase physical activity to maintain a healthy weight. Check BP at home once or twice daily and call the office if BP is persistently above 140/90 or below 100/60. Follow up in 3 months Related to Hypertension, benign Giving encouragement to exercise Related to Body mass index (BMI) 37.0-37.9, adult Dietary management e ducation, guidance, and counseling Related to Body mass index (BMI) 37.0-37.9, adult new med(s) started - stop smoking,avoid alcohol, decrease caffeine,avoid chocolate, peppermint, citrus, onions and spicy foods. Related to Chronic GERD refilled med (s) and follow-up in 3 months. adviced to maintain low fat, low cholesterol diet or follow the so-called Mediterranean diet ,maintenance of healthy body weight, avoidance of tobacco products, and adherance to a regimen of physical activity. Related to Pure hyperglyceridemia Adequately controlle d, med (s) refilled and follow-up care in 3 months. Related to Essential (primary) hypertension aerobic exercises (s uch as brisk walking,bicycling or stationary, swimming) for 30 to 90 minutes 5 to 7 x per week. TV viewing to less than 2-hour per day.Moderation in diet, avoid calorie-dense and nutirent-poor foods ( such as sweetened beverages and processed foods) adviced Related to Obesity, unspecified med (s) refilled. Related to Mal e erectile dysfunction, unspecified Pt declines need for referral, symptoms are due to his current illness Related to Positive depression screening Stop Cipro and Flagy l Start Augmentin as ordered with food two times a day for 4 daysBland diet as discussedFollow up in one week if symptoms are not improving Related to Colitis UTD Related to Healt h education Eat a variety of clarence sh fruits/vegetables, lean meats, whole grains, 2 servings of dairy/day.3 meals/day, 1-2 snacks/day.Drink at least 64 ounces of water daily.Limit caffeine, sugary drinks and foods, avoid fried fatty foods.Eat healthy portions- refer to www.choosemyplate.gov for guidance. Related to Dietary counseling Moderate-intensity a erobic exercise for 150 minutes every week AND muscle-strengthening activities involving all major muscle groups at least two days per weekExercise has many benefits. It can:-Burn calories, which helps people control their weight-Help control blood sugar levels in people with diabetes-Lower blood pressure, especially in people with high blood pressure-Lower stress and help with depression-Keep bones strong, so they don't get thin and break easily-Lower the chance of dying from heart disease Related to BMI 38.0-38.9,adult med (s) refilled. Related to Mal e erectile dysfunction, unspecified Adviced aerobic exer cises (such as brisk walking,bicycling or stationary, swimming) for 30 to 90 minutes 5 to 7 x per week. TV viewing to less than 2-hour per day.Moderation in diet, avoid calorie-dense and nutirent-poor foods ( such as sweetened beverages and processed foods) Related to Obesity, unspecified Adequately controlle d, med (s) refilled and follow-up care in 3 months. Related to Essential (primary) hypertension refilled med (s) and follow-up in 3 months. adviced to maintain low fat, low cholesterol diet or follow the so-called Mediterranean diet ,maintenance of healthy body weight, avoidance of tobacco products, and adherance to a regimen of physical activity. Related to Pure hyperglyceridemia continue current med (s) adviced to maintain low fat, low cholesterol diet or follow the so-called Mediterranean diet ,maintenance of healthy body weight, avoidance of tobacco products, and adherance to a regimen of physical activity. Related to Other hyperlipidemia Adviced aerobic exer cises (such as brisk walking,bicycling or stationary, swimming) for 30 to 90 minutes 5 to 7 x per week. TV viewing to less than 2-hour per day.Moderation in diet, avoid calorie-dense and nutirent-poor foods ( such as sweetened beverages and processed foods) Related to Obesity, unspecified Work-up is under way. Related to Iron deficiency anemia, unspecified iron deficiency anemia type Adviced aerobic exer cises (such as brisk walking,bicycling or stationary, swimming) for 30 to 90 minutes 5 to 7 x per week. TV viewing to less than 2-hour per day.Moderation in diet, avoid calorie-dense and nutirent-poor foods ( such as sweetened beverages and processed foods) Related to Obesity, unspecified med (s) refilled. Related to Mal e erectile dysfunction, unspecified med (s) refilled. Related to Her pes genitalis in men refilled med (s) and follow-up in 3 months. Related to Essential (primary) hypertension refilled med (s) and follow-up in 3 months. adviced to maintain low fat, low cholesterol diet or follow the so-called Mediterranean diet ,maintenance of healthy body weight, avoidance of tobacco products, and adherance to a regimen of physical activity. Related to Pure hyperglyceridemia refilled med (s) and follow-up in 3 months. adviced to maintain low fat, low cholesterol diet or follow the so-called Mediterranean diet ,maintenance of healthy body weight, avoidance of tobacco products, and adherance to a regimen of physical activity. Related to Pure hyperglyceridemia Adviced aerobic exer cises (such as brisk walking,bicycling or stationary, swimming) for 30 to 90 minutes 5 to 7 x per week. TV viewing to less than 2-hour per day.Moderation in diet, avoid calorie-dense and nutirent-poor foods ( such as sweetened beverages and processed foods) Related to Obesity, unspecified med (s) refilled. Related to Mal e erectile dysfunction, unspecified med (s) refilled. Related to Her pes genitalis in men Adequately controlle d, med (s) refilled and follow-up care in 3 months. Related to Essential (primary) hypertension Adequately controlle d, med (s) refilled and follow-up care in 3 months. Related to Essential (primary) hypertension refilled med (s) and follow-up in 3 months. adviced to maintain low fat, low cholesterol diet or follow the so-called Mediterranean diet ,maintenance of healthy body weight, avoidance of tobacco products, and adherance to a regimen of physical activity. Related to Pure hyperglyceridemia Adviced aerobic exer cises (such as brisk walking,bicycling or stationary, swimming) for 30 to 90 minutes 5 to 7 x per week. TV viewing to less than 2-hour per day.Moderation in diet, avoid calorie-dense and nutirent-poor foods ( such as sweetened beverages and processed foods) Related to Obesity, unspecified Laboratory results r sherinwed and discussed with the patient. Advised to increase oral fluid, warm saline gargle (1/2 tsp per 8 oz of water) two or three times a day. Call or return to the clinic if symptoms worsened or persist. Related to Acute pharyngitis, unspecified etiology Adviced aerobic exer cises (such as brisk walking,bicycling or stationary, swimming) for 30 to 90 minutes 5 to 7 x per week. TV viewing to less than 2-hour per day.Moderation in diet, avoid calorie-dense and nutirent-poor foods ( such as sweetened beverages and processed foods) Related to Obesity, unspecified refilled med (s) and follow-up in 3 months. adviced to maintain low fat, low cholesterol diet or follow the so-called Mediterranean diet ,maintenance of healthy body weight, avoidance of tobacco products, and adherance to a regimen of physical activity. Related to Pure hyperglyceridemia refilled med (s) and follow-up in 3 months. Related to Essential (primary) hypertension completed at the [facility] per pt Related to Colon cancer screening refilled enalapril 5 mg/HCTZ 12.5mglabs as orderedcheck BP when at [facility], etc and f/u if consistently above 140/90 or below 100/60as belowget regular physical acitivity as toleratedf/u in 3 mosrtc/present to pcp/ED with change/worsening in condition or concerns Related to Essential (primary) hypertension refilled fenofibrate 145mg dailyas belowf/u in 3 mosrtc/present to pcp/ED with change/worsening in condition or concerns Related to Pure hyperglyceridemia labs as ordered Related to Healt h education Increase activity. Related to Es sential (primary) hypertension Follow a low sodium low caffeine diet. Related to Essential (primary) hypertension Aerobic Exercises, 2 0-30 mins, 4-5 times per week as tolerated Related to Pure hyperglyceridemia Weight Loss Related to Pure hyperglyceridemia Low Calorie/Low fat diet recomme nded Related to Pure hyperglyceridemia aerobic exercises 20 -30 mins 4-5 times per week Related to Obesity, unspecified weight loss Related to Obesi ty, unspecified Patient encouraged t o go on www.Lucid Colloidsmyplate.gov for nutrition guidelines Related to Obesity, unspecified refilled med (s) and follow-up in 3 months. adviced to maintain low fat, low cholesterol diet or follow the so-called Mediterranean diet ,maintenance of healthy body weight, avoidance of tobacco products, and adherance to a regimen of physical activity. Related to Pure hyperglyceridemia Adviced aerobic exer cises (such as brisk walking,bicycling or stationary, swimming) for 30 to 90 minutes 5 to 7 x per week. TV viewing to less than 2-hour per day.Moderation in diet, avoid calorie-dense and nutirent-poor foods ( such as sweetened beverages and processed foods) Related to Obesity, unspecified med (s) refilled. Related to Her pes genitalis in men took med an hour ago , refilled med (s) and follow-up in 3 months. Related to Essential (primary) hypertension new med(s) started n philip saline irrigation (flushing 6-8 oz.) adviced. Related to Allergic rhinitis, unspecified Stage 2 , infected, surgical procedure- partial nail plate avulsion with or without phenolization under digital block. Related to Ingrown left big toenail Adviced aerobic exer cises (such as brisk walking,bicycling or stationary, swimming) for 30 to 90 minutes 5 to 7 x per week. TV viewing to less than 2-hour per day.Moderation in diet, avoid calorie-dense and nutirent-poor foods ( such as sweetened beverages and processed foods) Related to Other obesity due to excess calories med (s) refilled. Related to Her pes genitalis in men for 1 1/2 months no improvement, surgical procedure- partial nail plate avulsion with or without phenolization under digital block. Related to Ingrown left big toenail Adviced aerobic exer cises (such as brisk walking,bicycling or stationary, swimming) for 30 to 90 minutes 5 to 7 x per week. TV viewing to less than 2-hour per day.Moderation in diet, avoid calorie-dense and nutirent-poor foods ( such as sweetened beverages and processed foods) Related to Other obesity due to excess calories Took med few minutes ago, continue current med (s) adviced aspirin if not contraindicated,fish oil and vit. D and maintain low sodium diet (less than 2 gm per day) ,limit alcohol consumption to < 1 oz. per day. Related to Essential (primary) hypertension new med(s) started f/u in 2-3 we eks. Related to Paronychia of great toe of left foot Adviced aerobic exer cises (such as brisk walking,bicycling or stationary, swimming) for 30 to 90 minutes 5 to 7 x per week. TV viewing to less than 2-hour per day.Moderation in diet, avoid calorie-dense and nutirent-poor foods ( such as sweetened beverages and processed foods) Related to Obesity, unspecified refilled med (s) and follow-up in 3 months. adviced to maintain low fat, low cholesterol diet or follow the so-called Mediterranean diet ,maintenance of healthy body weight, avoidance of tobacco products, and adherance to a regimen of physical activity. Related to Pure hyperglyceridemia med (s) refilled. Shasta kewarm (not hot) baths adviced.Use of soap should be less.Wool and perfumes be avoided.moist skin lubrication with emollient (Eucerin)adviced. Related to Unspecified contact dermatitis, unspecified cause refilled med (s) and follow-up in 3 months. adviced aspirin if not contraindicated,fish oil and vit. D and maintain low sodium diet (less than 2 gm per day) ,limit alcohol consumption to < 1 oz. per day. Related to Essential (primary) hypertension new med(s) started f /u in 10 days, to assess response. Related to Paronychia of great toe of left foot Adviced aerobic exer cises (such as brisk walking,bicycling or stationary, swimming) for 30 to 90 minutes 5 to 7 x per week. TV viewing to less than 2-hour per day.Moderation in diet, avoid calorie-dense and nutirent-poor foods ( such as sweetened beverages and processed foods) Related to Obesity, unspecified reviewed labs result s and other tests with the patient in detail. new med(s) started Related to Herpes genitalis in men Took med few minutes ago, continue current med (s) Related to Essential (primary) hypertension new med(s) started Related to Pe ward edema continue current med (s) ordered necessary related blood test (s). Related to Candidiasis of penis Adviced aerobic exer cises (such as brisk walking,bicycling or stationary, swimming) for 30 to 90 minutes 5 to 7 x per week. TV viewing to less than 2-hour per day.Moderation in diet, avoid calorie-dense and nutirent-poor foods ( such as sweetened beverages and processed foods) Related to Obesity, unspecified removed Related to Visit for suture removal Took meds few minute s ago, refilled med (s) and follow-up in 3 months. Related to Essential (primary) hypertension refilled med (s) and follow-up in 3 months. adviced to maintain low fat, low cholesterol diet or follow the so-called Mediterranean diet ,maintenance of healthy body weight, avoidance of tobacco products, and adherance to a regimen of physical activity. Related to Pure hyperglyceridemia aerobic exercises (s uch as brisk walking,bicycling or stationary, swimming) for 30 to 90 minutes 5 to 7 x per week. TV viewing to less than 2-hour per day.Moderation in diet, avoid calorie-dense and nutirent-poor foods ( such as sweetened beverages and processed foods) adviced Related to Obesity, unspecified med (s) refilled. Shasta kewarm (not hot) baths adviced.Use of soap should be less.Wool and perfumes be avoided.moist skin lubrication with emollient (Eucerin)adviced. Related to Unspecified contact dermatitis, unspecified cause med (s) refilled. Related to Mal e erectile dysfunction, unspecified Adequately controlle d, med (s) refilled and follow-up care in 3 months. adviced aspirin if not contraindicated,fish oil and vit. D and maintain low sodium diet (less than 2 gm per day) ,limit alcohol consumption to < 1 oz. per day. Related to Essential (primary) hypertension med (s) refilled. ad viced to maintain low fat, low cholesterol diet or follow the so-called Mediterranean diet ,maintenance of healthy body weight, avoidance of tobacco products, and adherance to a regimen of physical activity. Related to Pure hyperglyceridemia aerobic exercises (s uch as brisk walking,bicycling or stationary, swimming) for 30 to 90 minutes 5 to 7 x per week. TV viewing to less than 2-hour per day.Moderation in diet, avoid calorie-dense and nutirent-poor foods ( such as sweetened beverages and processed foods) adviced Related to Obesity, unspecified Controlled condition med (s) refilled. Lukewarm (not hot) baths adviced.Use of soap should be less.Wool and perfumes be avoided.moist skin lubrication with emollient (Eucerin)adviced. Related to Unspecified contact dermatitis, unspecified cause med (s) refilled. Related to Mal e erectile dysfunction, unspecified Adequately controlle d, med (s) refilled and follow-up care in 3 months. adviced aspirin if not contraindicated,fish oil and vit. D and maintain low sodium diet (less than 2 gm per day) ,limit alcohol consumption to < 1 oz. per day. Related to Essential (primary) hypertension med (s) refilled. ad viced to maintain low fat, low cholesterol diet or follow the so-called Mediterranean diet ,maintenance of healthy body weight, avoidance of tobacco products, and adherance to a regimen of physical activity. Related to Pure hyperglyceridemia med (s) refilled. Shasta kewarm (not hot) baths adviced.Use of soap should be less.Wool and perfumes be avoided.moist skin lubrication with emollient (Eucerin)adviced. Related to Unspecified contact dermatitis, unspecified cause aerobic exercises (s uch as brisk walking,bicycling or stationary, swimming) for 30 to 90 minutes 5 to 7 x per week. TV viewing to less than 2-hour per day.Moderation in diet, avoid calorie-dense and nutirent-poor foods ( such as sweetened beverages and processed foods) adviced Related to Obesity, unspecified med (s) refilled. ad viced to maintain low fat, low cholesterol diet or follow the so-called Mediterranean diet ,maintenance of healthy body weight, avoidance of tobacco products, and adherance to a regimen of physical activity. Related to Pure hyperglyceridemia Adequately controlle d, med (s) refilled and follow-up care in 3 months. adviced aspirin if not contraindicated,fish oil and vit. D and maintain low sodium diet (less than 2 gm per day) ,limit alcohol consumption to < 1 oz. per day. Related to Essential (primary) hypertension up to date. Related to Healt h education he wanted a more aff ordable topical cream. Related to Eczema Counseled regarding importance of weight loss. Related to Obesity refill Viagra Related to Erect ile dysfunction controlled, low salt diet, take medications as instructed f/ux 3 mos. refill meds Related to Hypertension, benign Advised to maintain a low-fat, low-cholesterol diet. refill meds f/u fasting CMP/lipids. Related to Hypertriglyceridemia Satisfactory exam, fit to work. Related to Health examination of defined subpopulations ADVISE REGULAR AEROB IC EXERCISE, HEALTHY DIET Related to Obesity med (s) refilled. ad viced to maintain low fat, low cholesterol diet or follow the so-called Mediterranean diet ,maintenance of healthy body weight, avoidance of tobacco products, and adherance to a regimen of physical activity. Related to Hypertriglyceridemia med (s) refilled. Related to Ere ctile dysfunction aerobic exercises (s uch as brisk walking,bicycling or stationary, swimming) for 30 to 90 minutes 5 to 7 x per week. TV viewing to less than 2-hour per day.Moderation in diet, avoid calorie-dense and nutirent-poor foods ( such as sweetened beverages and processed foods) adviced Related to Obesity took med half an jacinto r ago, med (s) refilled. adviced aspirin if not contraindicated,fish oil and vit. D and maintain low sodium diet (less than 2 gm per day) ,limit alcohol consumption to < 1 oz. per day. F/U in 3 months Related to Hypertension, benign med (s) refilled. Shasta kewarm (not hot) baths adviced.Use of soap should be less.Wool and perfumes be avoided.moist skin lubrication with emollient (Eucerin)adviced. Related to Eczema aerobic exercises (s uch as brisk walking,bicycling or stationary, swimming) for 30 to 90 minutes 5 to 7 x per week. TV viewing to less than 2-hour per day.Moderation in diet, avoid calorie-dense and nutirent-poor foods ( such as sweetened beverages and processed foods) adviced Related to Obesity for complete blood t ests and other related work-ups Related to Well adult health check Adequately controlle d, med (s) refilled and follow-up care in 3 months. adviced aspirin if not contraindicated,fish oil and vit. D and maintain low sodium diet (less than 2 gm per day) ,limit alcohol consumption to < 1 oz. per day. Related to Hypertension, benign med (s) refilled. ad viced to maintain low fat, low cholesterol diet or follow the so-called Mediterranean diet ,maintenance of healthy body weight, avoidance of tobacco products, and adherance to a regimen of physical activity. Related to Hypertriglyceridemia med (s) refilled. Related to Ere ctile dysfunction Assessments Type Assessment Date assessment Pure hyperglyceridemia assessment Essential (primary) hypertension assessment Chronic GERD assessment Arthritis, wrist Patient Care Teams Name Effective Dates (start - stop) Status Members No Information
== END 2024-11-13 09:50 | disposition home or self-care (01) ==
LOC: ANHAUDIO 09:50
PROVIDERS: PCP Family Medicine; Visit Provider Family Medicine
DX: H90.3 Sensorineural hearing loss, bilateral (principal); H93.13 Tinnitus, bilateral
CPT/HCPCS: 92557; 92567

== ENCOUNTER 2025-03-20 09:07 | Outpatient (CLI) | payer MEDICARE, OTHER, SELFPAY ==
--- OUTSIDE RECORDS SUMMARY | 2025-03-20 09:33 | XMS_ITS | Continuity of Care Document ---
Author Organization [facility] nters Address [address] [place] [address] Phone Care Team Providers Care Management Planner Name Role Phone Jovanny Cook MD Unavailable [...] Providers Copied on Encounter OV EST DETAILED [facility], [address], [place], [place], [id number], [place] tel:[phone] [facility] LS Follow Up of GERD (telehealth) (chief complaint)Fol low Up of Hyperlipidemi a (telehealth) (chief complaint)Fol low Up of Hypertension (telehealth) (chief complaint) Pure hyperglyceri demiaEssenti al (primary) hypertension Chronic GERDArthriti s, wrist -202 0 Cook Jovanny. [address] [facility], [id number] [place] [address], [place]. tel:[phone] OV EST DETAILED [facility], [address], [place], [place], [address], [place] tel:[phone] [facility] LS Follow Up of Hypertension (chief complaint)Fol low Up of Hyperlipidemi a (chief complaint)Fol low Up of GERD (chief complaint)Hea lth Maintenance (chief complaint) Essential hypertension Chronic GERDDietary counselingEx ercise counselingHy janina Palm s, wrist Dec- 0 Alisia Martin. [address], [id number] 0NS, [place], [place], [id number], [place]. tel: [phone] [facility], [address], [place], [place], [address], [place] tel: [phone] [facility] hoarse voice (chief complaint)hea lth maintenance (chief complaint) Chronic hoarsenessBM I 38.0-38.9,ad ult 0 Joey Petty. [address], [id number] 0NS, [place], [place], [address], [place]. tel: [phone] [facility], [address], [place], [place], [address], [place] tel: [phone] [facility] Family Practice Follow Up of Hypertension (chief complaint)Fol low Up of Hyperlipidemi a (chief complaint)Fol low Up of GERD (chief complaint)Fol low Up of Erectile dysfunction (chief complaint)Hea lth Maintenance (chief complaint)Fat igue (chief complaint) Hypertension , benignPure hypercholest erolemia, unspecifiedC hronic GERDObesity, unspecified 9 Cookyenni Petty. [address], [id number] 0NS, [place], [place], [address], [place]. tel: [phone] [facility], [address], [place], [place], [address], [place] tel: [phone] [facility] Family Practice Follow Up of Labs (chief complaint)Hea lth Maintenance (chief complaint) Pure hypercholest erolemia, unspecifiedH ypertension, benignObesit y, unspecified 9 Cook Jovanny. [address], [id number] 0NS, [place], [place], [address], [place]. tel: [phone] [facility], [address], [place], [place], [address], tel: [phone] [facility] Family Practice Follow Up of hypertension (chief complaint)Fol low Up of ED (chief complaint)Fol low Up of GERD (chief complaint)Fol low Up of hyperlipidemi a (chief complaint)hea lth maintenance (chief complaint) Male erectile dysfunction, unspecifiedH ypertension, benignPure hyperglyceri demiaChronic GERDObesity, unspecified 9 [facility]. [address], [id number] 0NS, [place], [place], [address], [place]. tel: [phone] [facility], [address], [place], [place], [address], tel: [phone] [facility] Family Practice hypertension (chief complaint)hyp erlipidemia (chief complaint)Hea lt Maintenance (chief complaint) Hypertension , benignHypert riglyceridem iaChronic GERDErectile dysfunction, unspecified erectile dysfunction typeBody mass index (BMI) 37.0-37.9, adult 9 [facility] Alek. [address] [id number] 0NS, [place], [place], [address], [place]. tel: [phone] [facility], [address], [place], [place], [address], [place] tel: [phone] [facility] Family Practice Follow Up of hypertension (chief complaint)Fol low Up of erectile dysfunction (chief complaint)Fol low Up of hyperlipidemi a (chief complaint)Fol low Up of HSV (chief complaint)hea lt maintenance (chief complaint) Male erectile dysfunction, unspecifiedP ure hyperglyceri demiaEssenti al (primary) hypertension Obesity, unspecifiedC hronic GERD 9 [facility] Jovanny. [address], [id number] 0NS, [place], [place], [id number], [place]. tel: [phone] [facility], [address], [place], [place], [address], [place] tel: [phone] [facility] Family Practice Follow Up of ER Visit (chief complaint)Hea lth Maintenance (chief complaint) ColitisBMI 38.0-38.9,ad ultDietary counselingHe alth educationPos itive depression screening 8 Tieri Patience. [address], [id number] 0NS, [place], [place], [address], [place]. tel: [phone] [facility], [address], [place], [place], [address], [place] tel: [phone] [facility] Family Practice Back pain (chief complaint)Fol low Up of Hypertension (chief complaint)Fol low Up of Hyperlipidemi a (chief complaint)Fol low Up of Erectile dysfunction (chief complaint)Hea lth Maintenance (chief complaint) Essential (primary) hypertension Pure hyperglyceri demiaMale erectile dysfunction, unspecifiedO besity, unspecified 8 Cook Jovanny. [address], [id number] 0NS, [place], [place], [id number], [place]. tel: [phone] [facility], [address], [place], [place], [address], [place] tel: [phone] [facility] Family [facility] Follow Up of Hypertriglyce ridemia (chief complaint)Hea lth Maintenance (chief complaint) Iron deficiency anemia, unspecified iron deficiency anemia typeObesity, unspecifiedO ther hyperlipidem ia 8 Cook Jovanny. [address], [id number] 0NS, [place], [place], [address], [place]. tel: [phone] [facility], [address], [place], [place], [address], [place] tel: [phone] [facility] Family Practice Hypertension (follow up) (chief complaint)Fol low Up of Hyperglycerid emia (chief complaint)Hea lth Maintenance (chief complaint) Essential (primary) hypertension Pure hyperglyceri demiaMale erectile dysfunction, unspecifiedH erpes genitalis in menObesity, unspecified 8 [facility] Jovanny. [address], [id number] 0NS, [place], [place], [address], [place]. tel: [phone] [facility], [address], [place], [place], [address], [place] tel: [phone] [facility] Family Practice hypertension (chief complaint)hyp erlipidemia (chief complaint)Hea lth Maintenance (chief complaint) Essential (primary) hypertension Male erectile dysfunction, unspecifiedP ure hyperglyceri demiaObesity , unspecifiedH erpes genitalis in men Dec- 8 [facility] Jovanny. [address], [id number] 0NS, [place], [place], [address], [place]. tel: [phone] [facility], [address], [place], [place], [address], [place] tel: [phone] [facility] Family Practice hypertension (chief complaint)Hea lth Maintenance (chief complaint) Pure hyperglyceri demiaEssenti al (primary) hypertension Obesity, unspecified Sep- 7 Cook Jovanny. [address], [id number] 0NS, [place], [place], [address], [place]. tel: [phone] [facility], [address], [place], [place], [address], [place] tel: [phone] [facility] Urgent Care sore throat (chief complaint) Acute pharyngitis, unspecified etiology Sep-3 0 7 Kiranwilliam Alek. [address] [id number] 0NS, [place], [place], [address], [place]. tel: [phone] [facility], [address], [place], [place], [address], [place] tel: [phone] [facility] Family Practice Follow Up of Hyperlipidemi a (chief complaint)Fol low Up of Hypertension (chief complaint)Fol low Up of Edema (chief complaint)Hea lth Maintenance (chief complaint) Essential (primary) hypertension Pure hyperglyceri demiaObesity , unspecifiedE ncounter for screening and preventative care Jun- 7 Joey Petty. [address], [id number] 0NS, [place], [place], [address], [place]. tel: [phone] [facility], [address], [place], [place], [address], [place] tel: [phone] [facility] Family Practice HTN (chief complaint)Hea lth maintenance (chief complaint)hyp erlipidemia (chief complaint) Essential (primary) hypertension Pure hyperglyceri demiaObesity , unspecifiedH ealth educationCol on cancer screening 7 Shauna Bonds. [address], [id number] 0NS, [place], [place], [facility], [place]. tel: [phone] [facility], [address], [place], [place], [address], [place] tel: [phone] [facility] Family [facility] Hypertension (chief complaint)Col d symptoms (chief complaint) Allergic rhinitis, unspecifiedE ssential (primary) hypertension Pure hyperglyceri demiaHerpes genitalis in menObesity, unspecified 7 Joey Petty. [address], [id number] 0NS, [place], [place], [address], [place]. tel: [phone] [facility], [address], [place], [place], [address], [place] tel: [phone] [facility] Family Practice toe nail removal (chief complaint) Ingrown left big toenailContu alyssa of left great toe with damage to nail, init encntr 6 Joey Petty. [address], [id number] 0NS, [place], [place], [address], [place]. tel: [phone] [facility], [address], [place], [place], [address], [place] tel: [phone] [facility] Family Practice Follow Up of Paronychia of L great toe (chief complaint) Ingrown left big toenailHerpe s genitalis in menOther obesity due to excess calories 6 [facility]. [address], [id number] 0NS, [place], [place], [address], [place]. tel: [phone] [facility], [address], [place], [place], [address], [place] tel: [phone] [facility] Family Practice Follow Up of Paronychia of L great toe (chief complaint) Paronychia of great toe of left footEssentia l (primary) hypertension Other obesity due to excess calories 6 [facility]. [address], [id number] 0NS, [place], [place], [address], [place]. tel: [phone] [facility], [address], [place], [place], [address], [place] tel: [phone] [facility] Family Practice Hypertension (chief complaint)kallie t pain (chief complaint) Paronychia of great toe of left footEssentia l (primary) hypertension Pure hyperglyceri demiaUnspeci fied contact dermatitis, unspecified causeObesity , unspecified Jun- 6 [facility]. [address], [id number] 0NS, [place], [place], [address], [place]. tel: [phone] [facility], [address], [place], [place], [address], [place] tel: [phone] [facility] Family Practice Follow Up of Candidiasis of penis (chief complaint) Herpes genitalis in menEssential (primary) hypertension Obesity, unspecified 0 6 [facility]. [address], [id number] 0NS, [place], [place], [address], [place]. tel: [phone] [facility], [address], [place], [place], [address], [place] tel: [phone] [facility] Family Practice Follow Up of Hypertension (chief complaint)Fol low Up of ED (chief complaint)Fol low Up of Eczema (chief complaint) Essential (primary) hypertension Pure hyperglyceri demiaPedal edemaCandidi asis of penisObesity , unspecifiedV isit for suture removal Gee-0 6-201 6 [facility]. [address], [id number] 0NS, [place], [place], [address] [place] [address], [place]. tel: [phone] [facility], [address], [place], [place], [address], tel: [phone] [facility] Family Practice Follow Up of Hypertension (chief complaint)Fol low Up of Hyperglycerid emia (chief complaint)Fol low Up of ED (chief complaint)Fol low Up of Eczema (chief complaint) Essential (primary) hypertension Pure hyperglyceri demiaMale erectile dysfunction, unspecifiedU nspecified contact dermatitis, unspecified causeObesity , unspecified Mar-0 8-201 6 [facility]. [address], [id number] 0NS, [place], [address] [place] [address], [place]. tel: [phone] [facility], [address], [place], [place], [address], [place] tel: [phone] [facility] Family Practice Hyperlipidemi a (follow up) med refill (chief complaint)Hyp ertension (follow up) med refill (chief complaint)ecz mendez cream triamcinolone refill (chief complaint)ED med refill (chief complaint) Essential (primary) hypertension Pure hyperglyceri demiaMale erectile dysfunction, unspecifiedO besity, unspecifiedU nspecified contact dermatitis, unspecified cause Dec-0 7-201 5 [facility]. [address], [id number] 0NS, [place], [place], [address], [place]. tel: [phone] [facility], [address], [place], [place], [address], [place] tel: [phone] [facility] Family Practice Hyperlipidemi a med refills (chief complaint)Hyp ertension (follow up) (chief complaint)tri amcinolone acetonide refills (chief complaint) Essential (primary) hypertension Pure hyperglyceri demiaUnspeci fied contact dermatitis, unspecified causeObesity , unspecified Joey Petty. [address], [id number] 0NS, [place], [place], [address], [place]. tel: [phone] [facility], [address], [place], [place], [address], [place] tel: [phone] [facility] Family Practice HTN (chief complaint)HYP ERLIPIDEMIA (chief complaint)ECZ MENDEZ (chief complaint) Hypertension , benignHypert riglyceridem iaErectile dysfunctionE [facility] Health education 5 Tonio Bowman. [address], [id number] 0NS, [place], [place], [address], [place]. tel: [phone] [facility], [address], [place], [place], [address], [place] tel: [phone] [facility] Urgent Care Physical chauffer license. (chief complaint) GENERAL MEDICAL EXAMHealth examination of defined subpopulatio nsObesity 5 Betsy Shafer. [address], [id number] 0NS, [place], [place], [address], [place]. tel: [phone] [facility], [address], [place], [place], [address], [place] tel: [phone] [facility] Family Practice HTN (chief complaint)hyp ertriglycerid emia (chief complaint)ED (chief complaint) Hypertension , benignHypert riglyceridem iaErectile dysfunctionO besst[facility] 5 Joey Petty. [address], [id number] 0NS, [place], [place], [address], [place]. tel: [phone] PREVENTIVE TEST 40 TO 64 YRS OLD [facility], [address], [place], [place], [address], [place] tel: [phone] [facility] wellness exam (chief complaint) Well adult health checkHyperte nsion, benignHypert riglyceridem iaErectile dysfunctionE czemaObesity 4 [facility]. [address], [id number] 0NS, [place], [place], [address], [place]. tel: [phone] [facility], [address], [place], [place], [address], [place] tel: [phone] [facility] rash (chief complaint)Med refill (chief complaint) Screening for depressionHy pertension, benignHypert riglyceridem iaErectile dysfunctionE czemaObesity 4 [facility]. [address], [id number] 0NS, [place], [place], [address], [place]. tel: [phone] [facility], [address], [place], [place], [address], [place] tel: [phone] [facility] neck pain (chief complaint)hyp ertension (chief complaint)hyp erlipidemia (chief complaint) HYPERTENSION BENIGNHypert riglyceridem iaPain, neckObesityD ietary surveillance and counselingEx ercise counseling 4 [facility]. [address], [id number] 0NS, [place], [place], [address], [place]. tel: [phone] [facility], [address], [place], [place], [address], [place] tel: [phone] [facility] hypertension (chief complaint)hyp ertriglycerid emia (chief complaint)spencer matitis (chief complaint) HYPERTENSION BENIGNHypert riglyceridem iaObesityDie tary counselingEx ercise counselingCa ndidal intertrigoIn fluenza Vaccination 3 [facility]. [address], [id number] 0NS, [place], [place], [address], [place]. tel: [phone] PREVENTIVE TEST 40 TO 60 YRS OLD [facility], [address], [place], [place], [address], [place] tel: [phone] [facility] Family [facility] work physical (chief complaint) Healthcare maintenanceO besityDietar y counselingEx ercise counselingGE NERAL MEDICAL EXAM 3 No Information [facility], [address], [place], [place], [address], [place] tel: [phone] [facility] rash (chief complaint) DERMATITIS CONTACT NOS or EczemaObesit y 3 Tucker Christopher. [address], [id number] 0NS, [place], [address], [place]. tel: [phone] [facility], [address], [place], [place], [address], [place] tel: [phone] [facility] rash (chief complaint) Hypertension , benignHyperu ricemiaDerma titisObesity Hypertriglyc eridemia 3 [facility]. [address], [id number] 0NS, [place], [place], [address], [place]. tel: [phone] [facility], [address], [place], [place], [address], [place] tel: [phone] [facility] hypertension (chief complaint) Hypertriglyc eridemiaHYPE RTENSION BENIGNHyperu ricemiaObesi ty 3 [facility]. [address], [id number] 0NS, [place], [place], [address], [place]. tel: [phone] [facility], [address], [place], [place], [address], [place] tel: [phone] [facility] Practice hypertension (follow up) (chief complaint)ere ctile dysfunction (chief complaint)nikia at hand swelling (chief complaint) Screening for depressionIM POTENCE ORGANIC ORGANObesity 3 Joey Petty. [address], [id number] 0NS, [place], [place], [address], [place]. tel: [phone] [facility], [address], [place], [place], [address], [place] tel: [phone] [facility] Practice hypertension (follow up) (chief complaint) IMPOTENCE ORGANIC ORGAN 2 Joey Petty. [address], [id number] 0NS, [place], [place], [address], [place]. tel: [phone] [facility], [address], [place], [place], [address], [place] tel: [phone] [facility] hypertension (chief complaint) HYPERTENSION BENIGNObesit y 2 Cookyenni Kento. [address], [id number] 0NS, [place], [place], [address], [place]. tel: [phone] [facility], [address], [place], [place], [address], [place] tel: [phone] [facility] Nursing imunization (chief complaint) No Information 2 Joey Petty. [address], [id number] 0NS, [place], [place], [address], [place]. tel: [phone] [facility], [address], [place], [place], [address], [place] tel: [phone] [facility] Practice f/u herpes (chief complaint)hyp ertension (chief complaint) ALLERGIC RHINTIS 2 Cookyenni Petty. [address], [id number] 0NS, [place], [place], [address], [place]. tel:[phone] [facility], [address], [place], [place], [address], [place] tel:[phone] [facility] Family Practice f/u rash to to left side of chest, arm and back (chief complaint) Neuralgia, post-herpeti cHYPERTENSIO N BENIGNObesit y 2 Joey Arenasnando. [address], [id number] 0NS, [place], [place], [address], [place]. tel:[phone] OV [facility], [address], [place], [place], [address], [place] tel:[phone] [facility] shoulder pain (chief complaint) Herpes zoster without mention of complication HYPERTENSION BENIGNIMPOTE NCE ORGANIC ORGANATOPIC DERMATITUS-N OS 2 Betsy Shafer. [address], [id number] 0NS, [place], [place], [address], [place]. tel:[phone] [facility], [address], [place], [place], [address], [place] tel:[phone] [facility] hypertension (chief complaint)ere ctile dysfunction (chief complaint) HYPERTENSION BENIGNIMPOTE NCE ORGANIC ORGANObesity Other atopic dermatitis and related conditionsHY PERTENSION BENIGNObesit y 1 Joey Arenasnando. [address], [id number] 0NS, [place], [place], [address], [place]. tel:[phone] Family History Family Member Type Diagnosis Age [...] Record Payers Payer name Insurance type Covered republican ID Authoriza tion(s) [facility] CI [id number] [facility] CI [id number] [facility] CI [id number] Social History Type Description Quantity Date Captured [...] Of Treatment Date Type Action Status Goal Lipid panel. Due on 020 due Goal PHQ-9. Due on du e Goal Colon Screening (fecal occult). Due on due Goal Hep C Ab. Due on due Goal BMP. Due on due Goal Dental Exam. Due on 975 due Goal BMP. Due on due Goal Colon Screening (fecal occult). Due on due Goal Hep C Ab. Due on due Goal Dental Exam. Due on 975 due Goal PHQ-9. Due on du e Goal Lipid panel. Due on due Goal Dental Exam. Due on 97 due Goal Colon Screening (fecal occult). Due on due Goal PHQ-9. Due on du e Goal BMP. Due on due Goal Hep C Ab. Due on due Goal Lipid panel. Due on due Goal Lipid panel. Due on due Goal Hep C Ab. Due on due Goal Colon Screening (fecal occult). Due on due Goal PHQ-9. Due on du e Goal BMP. Due on due Goal Dental Exam. Due on 97 due Goal Dental Exam. Due on 97 due Goal Colon Screening (fecal occult). Due on due Goal Hep C Ab. Due on due Goal Lipid panel. Due on due Goal PHQ-9. Due on du e Goal BMP. Due on due Goal PHQ-9. Due on du e Goal Dental Exam. Due on 97 due Goal Hep C Ab. Due on due Goal Colon Screening (fecal occult). Due on due Goal BMP. Due on due Goal Hep C Ab. Due on due Goal Lipid panel. Due on due Goal PHQ-9. Due on du e Goal Dental Exam. Due on due Goal Colon Screening (fecal occult). Due on due Goal HIV Ab. Due on d ue Goal Dietary manageme nt education, guidance, and counseling completed Goal Dental Exam. Due on due Goal Lipid panel. Due on due Goal Colon Screening (fecal occult). Due on due Goal PHQ-9. Due on du e Goal BMP. Due on due Goal HIV Ab. Due on d ue Goal Hep C Ab. Due on due Goal Lipid panel. Due on due Goal HIV Ab. Due on d ue Goal Hep C Ab. Due on due Goal Colon Screening (fecal occult). Due on due Goal BMP. Due on due Goal Dental Exam. Due on due Goal PHQ-9. Due on du e Goal Hep C Ab. Due on due Goal Dental Exam. Due on due Goal Lipid panel. Due on due Goal PHQ-9. Due on du e Goal HIV Ab. Due on d ue Goal Colon Screening (fecal occult). Due on due Goal BMP. Due on due Goal Dental Exam. Due on 97 due Goal HIV Ab. Due on d ue Goal PHQ-9. Due on du e Goal Hep C Ab. Due on due Goal Lipid panel. Due on due Goal BMP. Due on due Goal Colon Screening (fecal occult). Due on due Goal Hep C Ab. Due on due Goal BMP. Due on due Goal Dental Exam. Due on 975 due Goal HIV Ab. Due on d ue Goal Lipid panel. Due on due Goal PHQ-9. Due on du e Goal Colon Screening (fecal occult). Due on due Goal Colon Screening (fecal occult). Due on due Goal Dental Exam. Due on 975 due Goal Hep C Ab. Due on due Goal PHQ-9. Due on du e Goal HIV Ab. Due on d ue Goal Colonoscopy, fle xible; diagnostic. Due on due Goal Hep C Ab. Due on due Goal Influenza vaccine. Due on No due Goal Dental Exam. Due on 016 due Goal HIV Ab. Due on d ue Goal Colon Screening (fecal occult). Due on due Goal Colon Screening (fecal occult). Due on due Goal Influenza vaccine. Due on No due Goal Hep C Ab. Due on due Goal Dental Exam. Due on due Goal PHQ-9. Due on du e Goal Well Adult Visit. Due on February due Goal HIV Ab. Due on d ue Goal Td/Tdap vaccine. Due on due Goal Colonoscopy, fle xible; diagnostic. Due on due Goal Colon Screening (fecal occult). Due on due Goal Colonoscopy, fle xible; diagnostic. Due on due Goal PHQ-9. Due on du e Goal HIV Ab. Due on d ue Goal Influenza vaccine. Due on No due Goal Dental Exam. Due on due Goal Hep C Ab. Due on due Goal Td/Tdap vaccine. Due on due Goal Well Adult Visit. Due on February due Goal Colon Screening (fecal occult). Due on due Goal Zoster vaccine due Goal Colonoscopy, fle xible; diagnostic. Due on due Goal Td/Tdap vaccine. Due on due Goal Influenza vaccine. Due on No due Goal Dental Exam. Due on due Goal HIV Ab. Due on d ue Goal Well Adult Visit. Due on February due Goal Hep C Ab. Due on due Goal Colonoscopy, fle xible; diagnostic. Due on due Goal Well Adult Visit. Due on Oct due Goal Dental Exam. Due on due Goal Influenza vaccine. Due on No due Goal Colon Screening (fecal occult). Due on due Goal Hep C Ab. Due on due Goal Td/Tdap vaccine. Due on due Goal HIV Ab. Due on d ue Goal Colon Screening (fecal occult). Due on due Goal Td/Tdap vaccine. Due on due Goal Dental Exam. Due on due Goal Well Adult Visit. Due on Sep due Goal Influenza vaccine. Due on No due Goal HIV Ab. Due on d ue Goal Colonoscopy, fle xible; diagnostic. Due on due Goal Hep C Ab. Due on due Goal Influenza vaccine. Due on No due Goal Well Adult Visit. Due on Aug due Goal Hep C Ab. Due on due Goal HIV Ab. Due on d ue Goal Td/Tdap vaccine. Due on due Goal Colonoscopy, fle xible; diagnostic. Due on due Goal Colon Screening (fecal occult). Due on due Goal Colon Screening (fecal occult). Due on due Goal Influenza vaccine. Due on No due Goal Hep C Ab. Due on due Goal Colonoscopy, fle xible; diagnostic. Due on due Goal HIV Ab. Due on d ue Goal Td/Tdap vaccine. Due on due Goal Well Adult Visit. Due on Jul due Goal Well Adult Visit. Due on Jun due Goal Td/Tdap vaccine. Due on due Goal Colonoscopy, fle xible; diagnostic. Due on due Goal Colon Screening (fecal occult). Due on due Goal Zoster vaccine due Goal Influenza vaccine. Due on due Goal HIV Ab. Due on d ue Goal COPD SCREENING due Goal Hep C Ab. Due on due Goal Hep C Ab. Due on due Goal PPD (TST). Due on 6 due Goal Colon screening. Due on due Goal Colonoscopy, fle xible; diagnostic. Due on due Goal BMP/CMP/LFT's. Due on due Goal Colon Screening (fecal occult). Due on due Goal BMP/CMP/LFT's. Due on due Goal Colon screening. Due on due Goal PPD (TST). Due on 6 due Goal Colon Screening (fecal occult). Due on due Goal PHQ-9. Due on du e Goal Colonoscopy, fle xible; diagnostic. Due on due Goal Hep C Ab. Due on due Goal Lipid panel. Due on 017 due Goal FOBT. Due on due Goal CMP. Due on due Goal Colon screening due Goal BMP/CMP/LFT's. Due on due Goal COPD SCREENING due Goal Influenza vaccine. Due on due Goal BMP. Due on due Goal CMP. Due on due Goal PHQ-9. Due on du e Goal BMP/CMP/LFT's. Due on due Goal Lipid panel. Due on 015 due Goal Influenza vaccine. Due on due Goal FOBT. Due on due Goal BMP/CMP/LFT's. Due on due Goal Dental Exam. Due on 014 due Goal Zoster vaccine due Goal FOBT. Due on due Goal FOBT. Due on due Goal Flex Sigmoid. Due on 2014 due Goal ECG. Due on due Goal Zoster (if over 60 yrs). Due on due Goal Shingles (Zoster). Due on due Goal Abdominal Ultras ound. Due on due Goal HIV Ab. Due on d ue Goal DTAP. Due on due Goal Dental Exam. Due on 015 due Goal Echocardiogram. Due on due Goal Depression scree nguyễn. Due on due Goal Td vaccine. Due on 15 due Goal Echocardiogram. Due on due Goal Td vaccine. Due on 15 due Goal HIV Ab. Due on d ue Goal Zoster (if over 60 yrs). Due on due Goal Depression scree nguyễn. Due on due Goal Shingles (Zoster). Due on due Goal FOBT. Due on due Goal Dental Exam. Due on 015 due Goal Abdominal Ultras ound. Due on due Goal DTAP. Due on due Goal ECG. Due on due Goal Flex Sigmoid. Due on 2014 due Goal Abdominal Ultras ound. Due on due Goal Depression scree nguyễn. Due on due Goal Flex Sigmoid. Due on 2014 due Goal ECG. Due on due Goal Td vaccine. Due on 15 due Goal Echocardiogram. Due on due Goal FOBT. Due on due Goal Shingles (Zoster). Due on due Goal HIV Ab. Due on d ue Goal DTAP. Due on due Goal Dental Exam. Due on 015 due Goal Zoster (if over 60 yrs). Due on due Goal Urinalysis due Goal Abdominal Ultras ound. Due on due Goal Depression scree nguyễn. Due on due Goal Lipid panel. Due on 015 due Goal Echocardiogram. Due on due Goal Flex Sigmoid. Due on 2013 due Goal Urinalysis . Due on 014 due Goal ECG. Due on due Goal CMP. Due on due Goal Diabetes screening due Goal DTAP. Due on due Goal HIV Ab. Due on d ue Goal Zoster vaccine due Goal FOBT. Due on due Goal Shingles (Zoster). Due on due Goal Zoster (if over 60 yrs). Due on due Goal Dental Exam. Due on 014 due Goal Td vaccine. Due on 14 due Goal PHQ-9. Due on du e Goal Lipid panel. Due on 014 due Goal Echocardiogram. Due on due Goal Abdominal Ultras ound. Due on due Goal ECG. Due on due Goal ECG. Due on due Goal Echocardiogram. Due on due Goal Abdominal Ultras ound. Due on due Goal Lipid panel. Due on 012 due Referral Ordered: ENT (related to Chronic hoarseness) ordered Referral Ordered: Referrals: ENT. Evaluate and treat ordered Referral Ordered: Referrals: Gastroenterology. Diagnostic testing ordered Referral Ordered: Referrals: Dentistry. Evaluate and treat Appointment date/timeframe: Today ordered Referral Ordered: COLONOSCOPY WITH BX SINGLE OR MULTIPLE ordered Future Order: Lab Order CBC with Diff ([id number]), Sent on: Sent Future Order: Lab Order CMP ([id number]), S ent on: Sent Future Order: Lab Order LIPID PA TRISTA ([id number]), Sent on: Sent Future Order: Lab Order TSH ([id number]), S ent on: Sent Future Order: Lab Order URIC ACI D ([id number]), Sent on: Sent Future Order: Lab Order URINALYS IS ([id number]), Sent on: Sent Future Order: Lab Order CMP ([id number]), S ent on: Sent Future Order: Lab Order CBC w/di ff ([id number]), Sent on: Sent Future Order: Lab Order Lipid Pa trista ([id number]), Sent on: Sent Future Order: Lab Order TSH ([id number]), S ent on: Sent History Of Present Illness Encounter Date Complaint History Of Prese nt Illness Follow Up of Hypertension ([facility]) Risk factors include family history HTN, gout [...] yesterday. He had a colonoscopy done in [place] about one month ago that he says [...] CREAM Physical chauffer license. [employer], SEE FORM, NO ACTIVE C/O. HX [...] diet, or follow the so called mediterranean diet. maintenance of healthy body weight, avoidance of [...] hours before bedtime. Related to Chronic GERD for 3 weeks Related to Chron ic hoarseness Adviced aerobic exer cises (such as brisk walking,bicycling or stationary, swimming) for 30 to 90 minutes 5 to 7 x per week. TV viewing to less than 2-hour per day.Moderation in diet, avoid calorie-dense and nutirent-poor foods ( such as sweetened beverages and processed foods) Related to BMI 38.0-38.9,adult Adviced aerobic exer cises (such as brisk [...] in 3 months. Related to Hypertension, benign refilled med (s) and follow-up in 3 months. adviced to maintain low fat, low cholesterol diet or follow the so-called Mediterranean diet,maintenance of healthy body weight, avoidance of tobacco [...] cholesterol diet or follow the so-called Mediterranean diet,maintenance of healthy body weight, avoidance of tobacco products, and adherance to a regimen of physical activity. Related to Pure hypercholesterolemia, unspecified continue current med (s) Related to Hypertension, benign refilled med (s) and follow-up in 3 [...] cholesterol diet or follow the so-called Mediterranean diet,maintenance of healthy body weight, avoidance of tobacco [...] processed foods) adviced Related to Obesity, unspecified refilled med (s) and follow-up in 3 months. adviced to maintain low fat, low cholesterol diet or follow the so-called Mediterranean diet,maintenance of healthy body weight, avoidance of tobacco products, and adherance to a regimen of physical activity. Related to Pure hyperglyceridemia med (s) refilled. Related to Mal e [...] Colitis UTD Related to Healt h education Moderate-intensity a erobic exercise for 150 minutes [...] from heart disease Related to BMI 38.0-38.9,adult Eat a variety of clarence sh fruits/vegetables, lean meats, whole grains, 2 servings of dairy/day.3 meals/day, 1-2 snacks/day.Drink at least 64 ounces of water daily.Limit caffeine, sugary drinks and foods, avoid fried fatty foods.Eat healthy portions- refer to www.choosemyplate.gov for guidance. Related to Dietary counseling Adequately controlle d, med (s) refilled and follow-up care in 3 months. Related to Essential (primary) hypertension refilled med (s) and follow-up in 3 months. adviced to maintain low fat, low cholesterol diet or follow the so-called Mediterranean diet,maintenance of healthy body weight, avoidance of tobacco [...] Related to Mal e erectile dysfunction, unspecified continue current med (s) adviced to maintain low fat, low cholesterol diet or follow the so-called Mediterranean diet,maintenance of healthy body weight, avoidance of tobacco [...] deficiency anemia, unspecified iron deficiency anemia type med (s) refilled. Related to Mal e erectile dysfunction, unspecified med (s) refilled. Related to Her pes genitalis in men Adviced aerobic exer cises (such as brisk [...] cholesterol diet or follow the so-called Mediterranean diet,maintenance of healthy body weight, avoidance of tobacco products, and adherance to a regimen of physical activity. Related to Pure hyperglyceridemia med (s) refilled. Related to Mal e erectile dysfunction, unspecified med (s) refilled. Related to Her pes genitalis in men refilled med (s) and follow-up in 3 months. adviced to maintain low fat, low cholesterol diet or follow the so-called Mediterranean diet,maintenance of healthy body weight, avoidance of tobacco [...] cholesterol diet or follow the so-called Mediterranean diet,maintenance of healthy body weight, avoidance of tobacco products, and adherance to a regimen of physical activity. Related to Pure hyperglyceridemia Adequately controlle d, med (s) refilled and follow-up care in 3 months. Related to Essential (primary) hypertension Adviced aerobic exer cises (such as brisk [...] persist. Related to Acute pharyngitis, unspecified etiology refilled med (s) and follow-up in 3 months. Related to Essential (primary) hypertension refilled med (s) and follow-up in 3 months. adviced to maintain low fat, low cholesterol diet or follow the so-called Mediterranean diet,maintenance of healthy body weight, avoidance of tobacco [...] and processed foods) Related to Obesity, unspecified completed at the [facility] of 2016 per pt Related to Colon [...] unspecified Patient encouraged t o go on www.BenchPrepmyplate.gov for nutrition guidelines Related to Obesity, unspecified refilled med (s) and follow-up in 3 months. adviced to maintain low fat, low cholesterol diet or follow the so-called Mediterranean diet,maintenance of healthy body weight, avoidance of tobacco [...] block. Related to Ingrown left big toenail med (s) refilled. Related to Her pes genitalis in men Adviced aerobic exer cises (such as brisk walking,bicycling or stationary, swimming) for 30 to 90 minutes 5 to 7 x per week. TV viewing to less than 2-hour per day.Moderation in diet, avoid calorie-dense and nutirent-poor foods ( such as sweetened beverages and processed foods) Related to Other obesity due to excess calories for 1 1/2 months no improvement, surgical procedure- partial nail plate avulsion with or without phenolization under digital block. Related to Ingrown left big toenail Took med few minutes ago, continue current med (s) adviced aspirin if not contraindicated,fish oil and vit. D and maintain low sodium diet (less than 2 gm per day) ,limit alcohol consumption to < 1 oz. per day. Related to Essential (primary) hypertension Adviced aerobic exer cises (such as brisk walking,bicycling or stationary, swimming) for 30 to 90 minutes 5 to 7 x per week. TV viewing to less than 2-hour per day.Moderation in diet, avoid calorie-dense and nutirent-poor foods ( such as sweetened beverages and processed foods) Related to Other obesity due to excess calories new med(s) started f/u in 2-3 we eks. Related to Paronychia of great toe of left foot refilled med (s) and follow-up in 3 months. adviced to maintain low fat, low cholesterol diet or follow the so-called Mediterranean diet,maintenance of healthy body weight, avoidance of tobacco products, and adherance to a regimen of physical activity. Related to Pure hyperglyceridemia med (s) refilled. Shasta kewarm (not hot) baths adviced.Use of soap should be less.Wool and perfumes be avoided.moist skin lubrication with emollient (Eucerin)adviced. Related to Unspecified contact dermatitis, unspecified cause Adviced aerobic exer cises (such as brisk [...] Paronychia of great toe of left foot reviewed labs result s and other tests with the patient in detail. new med(s) started Related to Herpes genitalis in men Took med few minutes ago, continue current med (s) Related to Essential (primary) hypertension Adviced aerobic exer cises (such as brisk walking,bicycling or stationary, swimming) for 30 to 90 minutes 5 to 7 x per week. TV viewing to less than 2-hour per day.Moderation in diet, avoid calorie-dense and nutirent-poor foods ( such as sweetened beverages and processed foods) Related to Obesity, unspecified new med(s) started Related to [facility] ward edema removed Related to Visit for suture removal continue current med (s) ordered necessary related [...] and processed foods) Related to Obesity, unspecified Took meds few minute s ago, refilled med (s) and follow-up in 3 months. Related to Essential (primary) hypertension refilled med (s) and follow-up in 3 months. adviced to maintain low fat, low cholesterol diet or follow the so-called Mediterranean diet,maintenance of healthy body weight, avoidance of tobacco [...] cholesterol diet or follow the so-called Mediterranean diet,maintenance of healthy body weight, avoidance of tobacco products, and adherance to a regimen of physical activity. Related to Pure hyperglyceridemia med (s) refilled. Related to Mal e erectile dysfunction, unspecified med (s) refilled. Shasta kewarm (not [...] processed foods) adviced Related to Obesity, unspecified aerobic exercises (s uch as brisk walking,bicycling [...] Related to Unspecified contact dermatitis, unspecified cause Adequately controlle d, med (s) refilled and follow-up care in 3 months. adviced aspirin if not contraindicated,fish oil and vit. D and maintain low sodium diet (less than 2 gm per day) ,limit alcohol consumption to < 1 oz. per day. Related to Essential (primary) hypertension med (s) refilled. ad viced to maintain low fat, low cholesterol diet or follow the so-called Mediterranean diet,maintenance of healthy body weight, avoidance of tobacco products, and adherance to a regimen of physical activity. Related to Pure hyperglyceridemia med (s) refilled. Related to Mal e erectile dysfunction, unspecified med (s) refilled. Shasta kewarm (not [...] processed foods) adviced Related to Obesity, unspecified Adequately controlle d, [...] cholesterol diet or follow the so-called Mediterranean diet,maintenance of healthy body weight, avoidance of tobacco products, and adherance to a regimen of physical activity. Related to Pure hyperglyceridemia refill Viagra Related to Erect ile dysfunction he wanted a more aff ordable topical cream. Related to Eczema Counseled regarding importance of weight loss. Related to Obesity up to date. Related to Healt h education controlled, low salt diet, take medications as [...] cholesterol diet or follow the so-called Mediterranean diet,maintenance of healthy body weight, avoidance of tobacco [...] and processed foods) adviced Related to Obesity med (s) refilled. ad viced to maintain low fat, low cholesterol diet or follow the so-called Mediterranean diet,maintenance of healthy body weight, avoidance of tobacco products, and adherance to a regimen of physical activity. Related to Hypertriglyceridemia med (s) refilled. Related to Ere ctile dysfunction for complete blood t ests and other related work-ups Related to Well adult health check Adequately controlle d, med (s) refilled and follow-up care in 3 months. adviced aspirin if not contraindicated,fish oil and vit. D and maintain low sodium diet (less than 2 gm per day) ,limit alcohol consumption to < 1 oz. per day. Related to Hypertension, benign Assessments Type Assessment Date assessment Pure hyperglyceridemia assessment Essential (primary) hypertension assessment Chronic GERD assessment Arthritis, wrist Patient Care Teams Name Effective Dates (start - stop) Status Members No Information
--- OUTSIDE RECORDS SUMMARY | 2025-03-20 09:34 | XMS_ITS | Continuity of Care Document ---
Author Name [facility] Organization [facility] Care Team Providers Care Java Solutions Architect Name Role Phone [facility] Unavailable Unavailable Problems Combined list of problems from Department of Defense and Veterans Affairs facilities. It does not include entries that were removed or entered in error. Problem Status Onset Date Problem Type Date of Resolution Comments Source Encounter for administrative examinations, unspecified Active 4 Diagnosis [id number] [facility] sel[facility] Encounter for general adult medical examination without abnormal findings Active Condition DoD Encounter for screening for malignant neoplasm of colon Active Condition DoD Vitamin D deficiency, unspecified Active Condition DoD Prediabetes Active Condition DoD Hyperlipidemia, unspecified Active Condition DoD Hypothyroidism, unspecified Active Condition DoD Thalassemia, unspecified Active Condition DoD Dietary Counseling Pertaining To Specific Condition Active Condition DoD red blood in bowel movement (hematochezia) Active Condition DoD bright red blood per rectum Inactive Condition DoD GROSS HEMATURIA Active Condition DoD TENDONITIS ROTATOR CUFF Active Condition DoD numbness (hypesthesia) Active Condition DoD SHOULDER IMPINGEMENT LEFT Active Condition DoD HYDRONEPHROSIS Inactive Condition DoD PERIODONTAL ABSCESS Active Condition Do D Patient Education - Medication Active Condition DoD visit for: preoperative gastrointestinal exam Inactive Condition DoD HYDRONEPHROSIS BILATERAL Inactive Condition DoD SINUSITIS ACUTE Inactive Condition DoD feared medical condition not demonstrated Active Condition DoD IRON DEFICIENCY ANEMIA Active Condition DoD ANEMIA Active Condition DoD CONJUNCTIVITIS Inactive Condition DoD Blood Pressure Isolated Elevated Active Condition DoD NORMAL ROUTINE HISTORY AND PHYSICAL ADULT (18-65) Inactive Condition DoD CELLULITIS OF THE RIGHT THIGH Inactive Condition DoD INJURY CAUSED BY ANIMAL BEE STING HORNETS / WASPS / BEES Inactive Condition DoD Patient Counseling: Inquiry & Counseling Active Condition DoD visit for: administrative purpose Inactive Condition DoD HYPOTHYROIDISM Active Condition DoD CERVICAL RADICULOPATHY Active Condition DoD 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 DoD ANEMIA HYPOCHROMIC / MICROCYTIC Active Condition DoD Hematology Nonspecific Abnormal Findings Active Condition DoD joint pain, localized in the hip Active Condition DoD cough Active Condition DoD BURSITIS TROCHANTERIC Active Condition DoD HYPERPROTEINEMIA Active Condition DoD visit for: issue repeat prescription Inactive Condition DoD PHARYNGITIS Active Condition throat c x done DoD ALLERGIC RHINITIS Active Condition rx Izabel 180 mg po daily prn for allergies DoD PREDIABETES (IMPAIRED GLUCOSE TOLERANCE) Active Condition DoD HYPERLIPIDEMIA Active Condition DoD Patient Counseling: Active Condition ordered fasting lab work for pt. Please call and inform pt. DoD TENOSYNOVITIS De QUERVAIN'S Active Condition DoD Occupational Therapy Inactive Condition DoD Encounter for fitting and adjustment of spectacles and contact lenses Active Diagnosis 0055C-375 [facility] Medications Combined list of outpatient medications from Department of Defense and Veterans Affairs facilities.Medications provided include 1) outpatient medications from the last 15 months, and 2) patient-reported medications. Medication Details Route Status Patient Instructions Prescription Expires Prescription Number Last Dispense Date Ordering Provider Order Date Order Qty Source AMOX TR-POTASSIU M CLAVULANATE (AMOXICILLI N/POTASSIUM CLAV), 875-125 MG, TABLET, ORAL, SANDOZ, 20 ea. BOTTLE Active [id number] 4 2023 28 Pharmac y Data Transac tion Service Facilit y cholecalcif jayden 25 mcg (1000 intl units) oral capsule 1 cap(s), Oral, Daily, # 90 cap(s), 0 total refill(s ), Maintenpranay nce, [facility] Oral (given by mouth) Ordered 3 2022 90.0 6201C-D [facility] cholecalcif jyaden 25 mcg (1000 units) tablet See dose instruct ions in comments , # 90 EA, 1 total refill(s ), Acute Complet ed 06/15/2023 3 2022 90.0 Ambulat ory Pharmac y FLONASE-OTC (BRAND) 50 MCG ONESIMO SPSN [9.9] Take or use exactly as directed .For the nose. 02/28/2025 [id number] 4 2023 16 [facility] [place] [place] [place] fluticasone 50 mcg/inh nasal spray [16g] See Instruct ions, 0, 0, # 16 g, 1 total refill(s ), Hard Stop Ordered 09/14/2025 5 2024 16.0 Ambulat ory Pharmac y fluticasone 50 mcg/inh nasal spray [16g] 100 mcg, Nostril- Both, Daily, # 16 g, 1 total refill(s ), Hard Stop Nostri l-Both (into the nose) Discont inued 08/17/2024 4 2023 16.0 Ambulat ory Pharmac y fluticasone 50 mcg/inh nasal spray [16g] See Instruct ions, # 16 g, 1 total refill(s ), Hard Stop Discont inued 09/14/2024 4 2023 16.0 Ambulat ory Pharmac y fluticasone 50 mcg/inh nasal spray [16g] See Instruct ions, # 16 g, 1 total refill(s ), Hard Stop Discont inued 03/01/2024 4 2023 16.0 Ambulat ory Pharmac y FOLIC ACID (U/D) 1 MG ORAL TAB 02/28/2025 [id number] 4 2023 90 [facility] Timothy [place]AUDHARY [place] [place] folic acid 1 mg oral tablet 1 tab(s), Oral, Daily, # 90 tab(s), 0 total refill(s ), Addy paniagua, Pharmacy : [facility] Oral (given by mouth) Discont inued 09/14/2024 3 2023 90.0 [id number]-D [facility] folic acid 1 mg tablet See Instruct ions, Oral, Daily, # 90 EA, 1 total refill(s ), Hard Stop Oral (given by mouth) Discont inued 03/01/2024 4 2023 90.0 Ambulat ory Pharmac y folic acid 1 mg tablet = 1 tab(s), Oral, Daily, # 90 EA, 1 total refill(s ), Hard Stop Oral (given by mouth) Ordered 09/14/2025 5 2024 90.0 Ambulat ory Pharmac y folic acid 1 mg tablet = 1 tab(s), Oral, Daily, # 90 EA, 1 total refill(s ), Hard Stop Oral (given by mouth) Discont inued 09/14/2024 4 2023 90.0 Ambulat ory Pharmac y folic acid 1 mg tablet See dose instruct ions in comments , # 90 EA, 1 total refill(s ), Acute Complet ed 04/06/2023 3 2022 90.0 Ambulat ory Pharmac y levothyroxi ne (Synthroid) 50 mcg tablet = 1 tab(s), Oral, Daily, # 90 EA, 1 total refill(s ), Hard Stop Oral (given by mouth) Ordered 09/14/2025 5 2024 90.0 Ambulat ory Pharmac y levothyroxi ne (Synthroid) 50 mcg tablet 50 mcg, Oral, Daily, # 90 EA, 1 total refill(s ), Hard Stop Oral (given by mouth) Discont inued 09/14/2024 4 2023 90.0 Ambulat ory Pharmac y levothyroxi ne (Synthroid) 50 mcg tablet See dose instruct ions in comments , # 90 EA, 1 total refill(s ), Acute Complet ed 04/06/2023 3 2022 90.0 Ambulat ory Pharmac y levothyroxi ne (Synthroid) 50 mcg tablet 50 mcg, Oral, Daily, # 90 EA, 1 total refill(s ), Hard Stop Oral (given by mouth) Complet ed 08/16/2024 4 2023 90.0 Ambulat ory Pharmac y levothyroxi ne 50 mcg oral tablet 1 tab(s), Oral, Daily, for thyroid, # 90 tab(s), 0 total refill(s ), Addy paniagua, Pharmacy : [facility] Oral (given by mouth) Discont inued 09/14/2024 3 2023 90.0 [id number]-D [facility] Levothyroxi ne Sodium (Levothroid ) Tablet 50 mcg Oral Take on empty stomach. Take with plenty of water.Be careful if taking OTCs.Triston e or use exactly as directed . 02/28/2025 [id number] 4 [address] [place] [address] [facility] [place] [place] losartan (U/D) 25 MG ORAL TAB Be careful if taking OTCs.Triston e or use exactly as directed .Do not take if . 02/28/2025 [id number] 4 [address] [place] [address] Timothy QUILES [place] [place] losartan 25 mg oral tablet 1 tab(s), Oral, Daily, for blood pressure , # 90 tab(s), 3 total refill(s ), Addy paniagua, Pharmacy : [facility] Oral (given by mouth) Discont inued 09/14/2024 3 2023 90.0 [id number]-D [facility] losartan 25 mg tablet See dose instruct ions in comments , # 90 EA, 2 total refill(s ), Acute Complet ed 04/06/2023 3 2022 90.0 Ambulat ory Pharmac y losartan 25 mg tablet = 1 tab(s), Oral, Daily, # 90 EA, 1 total refill(s ), Hard Stop Oral (given by mouth) Ordered 09/14/2025 5 2024 90.0 Ambulat ory Pharmac y losartan 25 mg tablet 25 mg, Oral, Daily, # 90 EA, 1 total refill(s ), Hard Stop Oral (given by mouth) Discont inued 09/14/2024 4 2023 90.0 Ambulat ory Pharmac y losartan 25 mg tablet 25 mg, Oral, Daily, # 90 EA, 1 total refill(s ), Hard Stop Oral (given by mouth) Discont inued 03/01/2024 4 2023 90.0 Ambulat ory Pharmac y methylPREDN ISolone 4 mg tablet Dose Pack [21EA] See Instruct ions, # 21 EA, 0 total refill(s ), Hard Stop Complet ed 07/05/2024 4 2023 21.0 Ambulat ory Pharmac y omeprazole DR 20 mg capsule = 1 cap(s), Oral, Daily, # 90 EA, 0 total refill(s ), Hard Stop Oral (given by mouth) Complet ed 12/14/2024 4 2024 90.0 Ambulat ory Pharmac y omeprazole DR 40 mg capsule = 1 cap(s), Oral, Daily, # 30 EA, 0 total refill(s ), Hard Stop Oral (given by mouth) Discont inued 09/14/2024 4 2023 30.0 Ambulat ory Pharmac y sildenafil 25 mg oral tablet 1 tab(s), Oral, Daily, 1 hour before sexual activity * max 10 per month*, # 10 tab(s), 11 total refill(s ), Addy paniagua, Pharmacy : [facility] Oral (given by mouth) Discont inued 08/17/2024 3 2023 10.0 [id number]-D [facility] sildenafil 25 mg tablet 25 mg, Oral, Daily, # 30 EA, 0 total refill(s ), Hard Stop Oral (given by mouth) Discont inued 03/01/2024 3 2023 30.0 Ambulat ory Pharmac y sildenafil 25 mg tablet = 1 tab(s), Oral, # 30 EA, 1 total refill(s ), Hard Stop Oral (given by mouth) Ordered 09/14/2025 5 2024 30.0 Ambulat ory Pharmac y sildenafil 25 mg tablet See Instruct ions, # 30 EA, 0 total refill(s ), Hard Stop Discont inued 08/17/2024 4 2023 30.0 Ambulat ory Pharmac y sildenafil 25 mg tablet See Instruct ions, Oral, # 30 EA, 1 total refill(s ), Hard Stop Oral (given by mouth) Discont inued 09/14/2024 4 2023 30.0 Ambulat ory Pharmac y sildenafil 50 mg tablet See dose instruct ions in comments , # 30 EA, 1 total refill(s ), Acute Complet ed 04/06/2023 3 2022 30.0 Ambulat ory Pharmac y simvastatin (U/D) 20 MG ORAL TAB Take with food/mil k.Take or use exactly as directed .Obtain advice for OTCs.Do not take if .Avoid grapefru it and grapefru it juice. 02/28/2025 [id number] 4 2023 90 [facility] Timothy CHAUDHARY [place] [place] simvastatin 20 mg oral tablet 1 tab(s), Oral, every day at bedtime, for choleste rol, # 90 tab(s), 3 total refill(s ), Atatenpranay connollye, Pharmacy : [facility] Oral (given by mouth) Discont inued 09/14/2024 3 2023 90.0 [id number]-D [facility] simvastatin 20 mg tablet 20 mg, Oral, every day at bedtime, # 90 EA, 1 total refill(s ), Hard Stop Oral (given by mouth) Discont inued 03/01/2024 4 2023 90.0 Ambulat ory Pharmac y simvastatin 20 mg tablet See dose instruct ions in comments , # 90 EA, 1 total refill(s ), Acute Complet ed 04/06/2023 3 2022 90.0 Ambulat ory Pharmac y simvastatin 20 mg tablet = 1 tab(s), Oral, Daily, # 90 EA, 1 total refill(s ), Hard Stop Oral (given by mouth) Ordered 09/14/2025 5 2024 90.0 Ambulat ory Pharmac y simvastatin 20 mg tablet 20 mg, Oral, # 90 EA, 1 total refill(s ), Hard Stop Oral (given by mouth) Discont inued 09/14/2024 4 2023 90.0 Ambulat ory Pharmac y Allergies, Adverse Reactions, Alerts Combined list of allergies from Department of Defense and Veterans Affairs facilities. It does not include entries that were removed or entered in error. Substance Category Reaction Severity Reaction type Status Date Reported Comments Source acetaminop hen-oxycod one Propensity to adverse reactions to drug Unknown Active 9 Unknown Organization PERCOCET (OXYCODONE HCL/ACETAM INOPHEN) Drug allergy (disorder) Unknown active 9 [facility] traMADol Propensity to adverse reactions to drug Vomiting Active 0 Unknown Organization TRAMADOL HCL (TRAMADOL HCL) Drug allergy (disorder) Vomiting active 0 [facility] Immunizations Combined list of available immunizations from the Department of Defense and Veterans Affairs facilities. Immunization Series Date Given Administered By Site Reaction Lot Number CVX Code Drug Special Crimes Investigator Status Comments Source influenza virus vaccine, inactivated 2021 [facility] Arm [id number] Seqirus complet ed influenza virus vaccine, inactivat ed 08/31/22 Given Ambulat ory Pharmac y Influenza vaccine, quadrivalent, adjuvanted (Fluad) 1 2021 TIA YING [id number] Seqirus (SEQ) complet ed Influenza vaccine, quadrival ent, adjuvante d (Fluad) DoD pneumococcal polysaccharid e, 23 valent [facility] [id number] Merck & Company Inc complet ed pneumococ molina polysacch aride, 23 valent 06/16/22 Given Ambulat ory Pharmac y pneumococcal polysaccharid e vaccine, 23 valent 1 2021 TIA YING [id number] Merck (MSD) complet ed pneumococ molina polysacch aride vaccine, 23 valent DoD COVID Vaccine Pfizer 2021 [facility] Arm [id number] PFIZER complet ed COVID Vaccine Pfizer 05/15/22 Given Ambulat ory Pharmac y SARS-COV-2 (COVID-19) vaccine, mRNA, spike protein, LNP, preservative free, 30 mcg/0.3mL dose 4 2021 JAMES SALAZAR [id number] Pfizer, Inc (PFR) complet ed SARS-COV- 2 (COVID-19 ) vaccine, mRNA, spike protein, LNP, preservat lianne free, 30 mcg/0.3mL dose DoD COVID Vaccine Pfizer 2021 [facility] Arm [id number] PFIZER complet ed COVID Vaccine Pfizer 10/15/21 Given Ambulat ory Pharmac y SARS-COV-2 (COVID-19) vaccine, mRNA, spike protein, LNP, preservative free, 30 mcg/0.3mL dose 3 2021 NALDO YU [id number] Pfizer, Inc (PFR) complet ed SARS-COV- 2 (COVID-19 ) vaccine, mRNA, spike protein, LNP, preservat lianne free, 30 mcg/0.3mL dose DoD influenza, injectable, quadrivalent- pf [facility] [id number] complet ed influenza , injectabl e, quadrival ent-pf 08/15/21 Given Ambulat ory Pharmac y Influenza, injectable, quadrivalent, preservative free 1 2020 [id number] Transcribed (TRS) complet ed Influenza , injectabl e, quadrival ent, preservat lianne free DoD COVID Vaccine Pfizer 2020 [facility] Arm [id number] PFIZER complet ed COVID Vaccine Pfizer 01/31/21 Given Ambulat ory Pharmac y SARS-COV-2 (COVID-19) vaccine, mRNA, spike protein, LNP, preservative free, 30 mcg/0.3mL dose 2 2020 SHAGGY TREVIZO [id number] Pfizer, Inc (PFR) complet ed SARS-COV- 2 (COVID-19 ) vaccine, mRNA, spike protein, LNP, preservat lianne free, 30 mcg/0.3mL dose DoD COVID Vaccine Pfizer 2020 [facility] Arm [id number] PFIZER complet ed COVID Vaccine Pfizer 01/10/21 Given Ambulat ory Pharmac y SARS-COV-2 (COVID-19) vaccine, mRNA, spike protein, LNP, preservative free, 30 mcg/0.3mL dose 1 2020 STEVEN COLLINS [id number] Pfizer, Inc (PFR) complet ed SARS-COV- 2 (COVID-19 ) vaccine, mRNA, spike protein, LNP, preservat lianne free, 30 mcg/0.3mL dose DoD zoster vaccine, inactivated 2018 [facility] [id number] 187 [employer] ne complet ed zoster vaccine, inactivat ed 09/23/19 Given Ambulat ory Pharmac y zoster vaccine recombinant 2 2018 ARNALDO CASILLAS [id number] [facility] ([facility]) complet ed zoster vaccine recombina nt DoD tetanus, diphtheria, acellular pertu is 2018 [facility] Arm [id number] 115 GlaxoSmithKli ne complet ed tetanus, diphtheri a, acellular pertussis 04/27/19 Given Ambulat ory Pharmac y tetanus toxoid, reduced diphtheria toxoid, and acellular pertu is vaccine, adsorbed 1 2018 PORTILLO CARVAJALA [id number] 115 [facility] ([facility] complet ed tetanus toxoid, reduced diphtheri a toxoid, and acellular pertussis vaccine, adsorbed DoD zoster vaccine, inactivated 2018 zzLef t Arm [id number] 187 GlaxoSmithKli ne complet ed zoster vaccine, inactivat ed 04/05/19 Given Ambulat ory Pharmac y zoster vaccine recombinant 1 2018 MACDONALDTOBIN [id number] 187 [facility] ([facility]) complet ed zoster vaccine recombina nt DoD zoster vaccine live [facility] [id number] Merck & Company Inc complet ed zoster vaccine live 03/11/17 Given Ambulat ory Pharmac y zoster vaccine, live 1 2016 PAMELA MARSHALL [id number] 121 Merck (MSD) comple t ed zoster vaccine, live DoD pneumococcal 13-valent conjugate (PCV13) 2016 [facility] Arm [id number] complet ed pneumococ molina 13-valent conjugate (PCV13) 02/19/17 Given Ambulat ory Pharmac y pneumococcal conjugate vaccine, 13 valent 1 2016 ARINA TELLEZ [id number] 133 JAYDE (WYSirisha) complet ed pneumococ molina conjugate vaccine, 13 valent DoD Results Combined list of recent chemistry, hematology and other laboratory results from Department of Defense and Veterans Affairs, ranging from 15 months to all on record, depending upon the facility. Order Name Results Value Reference Range Date Interpretation Specimen Comments Source Hematolo gy Ovalocytes Slight (04/06/23 7:50 AM) 04/[address] [place] [address] Hematolo gy Darrel Cells Slight (04/06/23 7:50 AM) 04/[address] [place] [address] Hematolo gy Poikilocyt osis Slight (04/06/23 7:50 AM) 04/[address] [place] [address] Hematolo gy PLT Estimate Adequate (04/06/23 7:50 AM) 04/[address] [place] [address] Chemistr y PSA Total 1.700 ng/mL 0.014 - 4.000 04/06 N 0067A-Tyrell arnett [facility] Chemistr y TSH 3.440 uIU/mL 0.270 - 4.200 04/06 N Interpretiv e Data: Free T4 will be automatical ly performed when TSH <0.27 or >4.20 0123A-A.T [facility] Hematolo gy WBC 6.6 10^3/uL 3.6 - 10.6103 04/[address] [place] [address] Hematolo gy RBC 5.44 10^6/uL 4.21 - 5.44707 04/[address] [place] [address] Hematolo gy Hemoglobin 12.8 g/dL 12.8 - 17.7 04/[address] [place] [address] Hematolo gy Hematocrit 41.8 % 42.0 - 52.0 04/[address] [place] [address] Hematolo gy MCV 76.9 fL 79.5 - 96.8 04/[address] [place] [address] Hematolo gy MCH 23.5 pg 26.2 - 33.1 04/[address] [place] [address] Hematolo gy MCHC 30.5 g/dL 32.6 - 35.0 04/[address] [place] [address] Hematolo gy RDW 13.4 % 12.0 - 16.2 04/[address] [place] [address] Hematolo gy Platelets 243 10^3/uL 162 - [id number] 04/[address] [place] [address] Hematolo gy MPV 7.1 fL 7.0 - 10.9 04/[address] [place] [address] Hematolo gy CWBC 0 fL 7 - 11 04/[address] [place] [address] Hematolo gy Neutrophil % Auto 57.0 % 40.7 - 76.4 04/[address] [place] [address] Hematolo gy Lymphocyte % Auto 34.6 % 15.9 - 47.8 04/[address] [place] [address] Hematolo gy Monocyte % Auto 6.7 % 4.5 - 11.8 04/[address] [place] [address] Hematolo gy Eosinophil % Auto 1.1 % 0.3 - 7.1 04/[address] [place] [address] Hematolo gy Basophil % Auto 0.6 % 0.2 - 1.2 04/[address] [place] [address] Hematolo gy [place] Absolute 0.4 10^3/uL 0.2 - 0.8103 04/[address] [place] [address] Hematolo gy Eos Absolute 0.1 10^3/uL 0.0 - 0.5103 04/[address] [place] [address] Hematolo gy Neutro Absolute 3.7 10^3/uL 1.8 - 7.5103 04/[address] [place] [address] Hematolo gy Lymph Absolute 2.3 10^3/uL 1.0 - 3.1103 04/[address] [place] [address] Hematolo gy Baso Absolute 0.0 10^3/uL 0.0 - 0.1103 04/[address] [place] [address] Chemistr y Creatinine Level 0.87 mg/dL 0.70 - 1.20 04/06 N 0123A-A.T . [facility] Chemistr y Glucose Lvl 114 mg/dL 74 - 106 04/06 H 0123A-A.T . [facility] Chemistr y BUN 7 mg/dL 6 - 20 04/06 N 0123A-A.T . [facility] Chemistr y Chloride 102 mmol/L 98 - 107 04/06 N 0123A-A.T . [facility] Chemistr y CO2 21 mmol/L 22 - 29 04/06 L 0123A-A.T . [facility] Chemistr y ALT 13 U/L 0 - 41 04/06 N Interpretiv e Data: Any abnormality in a patient's ALT could be a marker of serious liver disease, including chronic viral hepatitis. If the ALT is repeatedly elevated consider testing for Hepatitis C AB. 0123A-A.T . [facility] Chemistr y AST 19 U/L 0 - 50 04/06 N 0123A-A.T . [facility] Chemistr y AGAP 15 mmol/L 7 - 16 04/06 N 0123A-A.T . [facility] Chemistr y BUN/Creat Ratio 8 04/06 0123A-A.T . [facility] Chemistr y Calcium 9.0 mg/dL 8.6 - 10.2 04/06 N 0123A-A.T . [facility] Chemistr y Protein Total 8.0 g/dL 6.6 - 8.7 04/06 N 0123A-A.T . [facility] Chemistr y Bilirubin Total 0.3 mg/dL 0.0 - 1.2 04/06 N 0123A-A.T . [facility] Chemistr y Albumin 4.4 g/dL 3.5 - 5.2 04/06 N 0123A-A.T . [facility] Chemistr y Alk Phos 73 U/L 40 - 129 04/06 N 0123A-A.T . [facility] Chemistr y Potassium Lvl 4.1 mmol/L 3.5 - 5.1 04/06 N 0123A-A.T . [facility] Chemistr y Sodium 138 mmol/L 136 - 145 04/06 N 0123A-A.T . [facility] Chemistr y HDL Cholestero l 48 mg/dL 04/06 N Interpretiv e Data: HDL: 2-17 yrs Acceptable >45, Borderline Low 40-45, Low <40 >18 yrs Desirable >=60, Low <40 HDL <40 constitutes a coronary heart disease risk factor. HDL >60 is a negative risk factor for coronary heart disease. Source: -Third Report of the National Cholesterol Education Program (NCEP) Expert Panel on Detection, Evaluation, and Treatment of High Blood Cholesterol in Adults (Adult Treatment Panel III) Final Report; Circulation Sep 2002, [phone]. -Expert panel on integrated guidelines for cardiovascu lar health and risk reduction in children and adolescents ; Pediatrics Sep 2011,128(Carballo pplement 5)[id number] . [address] [place] [address] Chemistr y Cholestero l Total 174 mg/dL 0 - 199 04/06 N Interpretiv e Data: Cholesterol : >18 yrs Desirable <200, Borderline High 200-239, High >=240 2-17 yrs Acceptable <170, Borderline High 170-199, High >=200 Source: -Third Report of the National Cholesterol Education Program (NCEP) Expert Panel on Detection, Evaluation, and Treatment of High Blood Cholesterol in Adults (Adult Treatment Panel III) Final Report; Circulation Sep 2002, [phone]. -Expert panel on integrated guidelines for cardiovascu lar health and risk reduction in children and adolescents ; Pediatrics Sep 2011,128(Carballo pplement 5)[id number] . 0123A-A.[facility] Chemistr y Chol/HDL 3.62 04/06 [facility] Chemistr y Triglyceri alex 104 mg/dL 0 - 149 04/06 N Interpretiv e Data: Triglycerid e: >18 yrs Desirable <150, Borderline High 150-199, High 200-499, Very High >=500 10-17 yrs Acceptable <90, Borderline High 90-129, High >=130 2-9 yrs Acceptable <75, Borderline High 75-99, High >=100 Source: -Third Report of the National Cholesterol Education Program (NCEP) Expert Panel on Detection, Evaluation, and Treatment of High Blood Cholesterol in Adults (Adult Treatment Panel III) Final Report; Circulation Sep 2002, [phone]. -Expert panel on integrated guidelines for cardiovascu lar health and risk reduction in children and adolescents ; Pediatrics Sep 2011,128(Carballo pplement 5)[id number] . [facility] LDL 108 mg/dL 0 - 100 04/06 H Interpretiv e Data: LDL: 2-17 yrs Acceptable <110, Borderline High 110-129, High >=130 >18 yrs Optimal <100, Near Optimal 100-129, Borderline High 130-159, High 160-189, Very High >=190 Source: -Third Report of the National Cholesterol Education Program (NCEP) Expert Panel on Detection, Evaluation, and Treatment of High Blood Cholesterol in Adults (Adult Treatment Panel III) Final Report; Circulation Sep 2002, [phone]. -Expert panel on integrated guidelines for cardiovascu lar health and risk reduction in children and adolescents ; Pediatrics Sep 2011,128(Carballo pplement 5)[id number] . 0123A-A.T . [facility] Chemistr y VLDL 18 mg/dL 2 - 30 04/06 N 012-A.[facility] Chemistr y LDL/HDL 2 04/06 [facility]-A.[facility] Chemistr y Non-HDL Cholestero l 126 04/06 Interpretiv e Data: Non-HDL: 2-17 yrs Acceptable <120, Borderline High 120-144, High >=145 >18 yrs Desirable <130, Less Desirable 130-159, Borderline High 160-189, High 190-219, Very High >=220 Non-HDL is a secondary target of therapy in persons with high serum triglycerid es (>199). The goal for Non-HDL in persons with high triglycerid es is 30 higher than their LDL goal. Source: -Third Report of the National Cholesterol Education Program (NCEP) Expert Panel on Detection, Evaluation, and Treatment of High Blood Cholesterol in Adults (Adult Treatment Panel III) Final Report; Circulation Sep 2002, 106(25),[phone]. -Expert panel on integrated guidelines for cardiovascu lar health and risk reduction in children and adolescents ; Pediatrics Sep 2011,128(Carballo pplement 5)[id number] . 0123A-A.T . [facility] Chemistr y eGFR CKD EPI 95 mL/min 04/06 Interpretiv e Data: Estimated Glomerular Filtration Rate (eGFR) calculated using the 2020 Chronic Kidney Disease-Epi demiology (CKD-EPI) Collaborati on creatinine equation; units of measure are mL/min/1.73 m2. Results are only valid for adults (>=18 years) whose serum creatinine is in steady state. eGFR calculation s are not valid for patients with acute kidney injury and for patients on dialysis. Creatinine- based estimates of kidney function may also be inaccurate in patients with reduced creatinine generation due to decreased muscle mass (e.g., malnutritio n, severe hypoalbumin emia, sarcopenia, chronic neuromuscul ar disease, amputations , severe heart failure or liver disease) and in patients with increased creatinine generation due to increased muscle mass (e.g., muscle builders, anabolic steroids) or increased dietary intake. CKD is diagnosed based on abnormaliti es of kidney structure or function, present for >3 months, with implication s for health and disease. CKD is classified and staged based on cause, eGFR and albuminuria (quantified as urine albumin to creatinine ratio). An eGFR >60 mL/min/1.73 m2 in the absence of increased urine albumin excretion or structural abnormaliti es does not represent CKD. eGFR provides only an estimate of measured GFR within +/- 30% for most patients. As mentioned, nutritional status and muscle mass, among many factors, may lead to inaccuracy in the estimate. Consider ordering the creatinine- cystatin C panel if better accuracy is needed for clinical decision-ma yevgeniy. eGFR (mL/min/1.7 3 m2) CKD stage Interpretat ion >=90 G1 Normal 60-89 G2 Mild decrease 45-59 G3A Mild to moderate decrease 30-44 G3B Moderate to severe decrease 15-29 G4 Severe decrease <15 G5 Kidney failure 0123A-A.T . [facility] Vital Signs Combined list of inpatient and outpatient Vital Signs from Department of Defense and Veterans Affairs, ranging from 12 months to all on record, depending upon the facility. Vital Sign Value Date Comments Source Mean Arterial Pressure, Calc 97 mm[Hg] 04/06/2023 11:27:[address] [place] [address] Peripheral Pulse Rate 73 bpm 04/06/2023 11:27:[address] [place] [address] Temperature Oral 36.6 Paz 04/06/2023 11:27:[address] [place] [address] Blood Pressure Manual Automatic 04/06/2023 11:27:[address] [place] [address] Respiratory Rate 16 br/min 04/06/2023 11:27:[address] [place] [address] Systolic Blood Pressure 134 mm[Hg] 04/06/2023 11:27:[address] [place] [address] Diastolic Blood Pressure 78 mm[Hg] 04/06/2023 11:27:[address] [place] [address] BP Site Left arm 04/06/2023 11:27:[address] [place] [address] Encounters Combined list of: 1) Encounters from Department of Veterans Affairs facilities going backup to the last 18 months, not all [place] inpatient encounters are included; 2) Encounters from the Department of Defense facilities going backup to 280 months. Location Location Details Encounter Type Encounter Number Reason For Visit Attending Provider ADM Date DC Date Status Disposition Source [facility]) OUTPATIENT [id number] F/U LT HAND ROBB ADAMES 01/04 Released w/o Limitations [facility]( [facility]o [facility] DF) [facility](Oc cup [facility]rap DF) OUTPATIENT [id number] BONITA BOLANOS 03/22 Released w/o Limitations [facility]( Occup Therap DF) [facility]) OUTPATIENT [id number] JAZIEL NÚÑEZ 03/29 Released w/o Limitations [facility]( Occup [facility]rap DF) [facility]) OUTPATIENT [id number] JAZIEL AVILA 03/31 Released w/o Limitations [facility]( Occup Therap DF) [facility] DF) OUTPATIENT [id number] JAZIEL AVILA 04/06 Released w/o Limitations [facility]( Occup Therap DF) [facility]rap DF) OUTPATIENT [id number] JAZIEL AVILA 04/09 Released w/o Limitations [facility]( Occup Therap DF) [facility] cup [facility]rap DF) OUTPATIENT [id number] BONITA BOLANOS 04/15 Released w/o Limitations [facility]( Occup Therap DF) [facility](Oc cup Therap DF) OUTPATIENT [id number] BONITA BOLANOS 04/23 Released w/o Limitations [facility]( Occup Therap DF) [facility]) TELE CONSULT [id number] MR. ZHU SAYS HE'S DOING FINE. HIS ROM IS AT 99%. HE ASK WHAT IS THE NEXT STEP. ROBB ADAMES 04/26 [facility]( Ortho [facility] DF) [facility](Fa m Practice DF) TELE CONSULT [id number] lab orders DO, LUIS FERNANDO H 05/10 [facility]( Fam Practic [facility] DF) [facility]) OUTPATIENT [id number] f[place]ocore , [facility] [place] [facility] w/o Limitations [facility]) [facility]) OUTPATIENT [id number] f/u:blo od treatme nt , [facility] [place] [facility] w/o Limitations [facility]) [facility] DF) TELE CONSULT [id number] Lab orders , [facility] 06/28 [facility]( Fam Pract[facility] DF[facility] DF) OUTPATIENT [id number] f/u kidneys , [facility] 07/21 Released w/o Limitations [facility]( F[facility] Pract[facility] DF[facility]) OUTPATIENT [id number] lab f/u , [facility] 08/26 Released w/o Limitations [facility]( F[facility] Pract[facility] DF[facility] DF) OUTPATIENT [id number] PT LAB F/U , [facility] 12/03 Released w/o Limitations [facility]( F[facility] Pract[facility] DF) [facility] DF) TELE CONSULT [id number] Request for lab work KLAUSLUANA SURESH Juanita 05/21 [facility]( F[facility] Pract[facility] DF) [facility] DF) TELE CONSULT [id number] lab orders AJAY OMALLEY 05/24 [facility]( Fam Pract[facility] e DF) [facility]) OUTPATIENT [id number] f/u lab work ANTONIALUANA Juanita 06/02 Released w/o Limitations [facility]( F[facility] Pract[facility] DF) [facility]) TELE CONSULT [id number] lab WICHOLUDIVINA LORRIE GEORGE 12/13 [facility]( F[facility] DF[facility] DF) OUTPATIENT [id number] lab f/u LORRIE BAUTISTA GEORGE 12/25 Released w/o Limitations [facility]( F[facility]) [facility] DF) TELE CONSULT [id number] [facility] CHEM LORRIE BAUTISTAU 01/08 [facility]( Fam Pract[facility] e DF) [facility] DF) TELE CONSULT [id number] lab orders ELLIOTT FORMAN 07/23 [facility]( Fam Practic e DF) [facility] DF) OUTPATIENT [id number] hippain / meds ELLIOTT FORMAN 08/05 Released w/o Limitations [facility]( Fam Pract[facility] DF) [facility]) OUTPATIENT [id number] severe cough ELLIOTT FORMAN 08/22 Released w/o Limitations [facility]( Fam Pract[facility] DF) [facility] DF) TELE CONSULT [id number] ELLIOTT FORMAN 08/24 [facility]( Fam Practic e DF) [facility](ZZ Oncology Cl WR) OUTPATIENT [id number] Patient Product Mgr ing: NADEGE KEEN 10/15 Released w/o Limitations [facility]( ZZOncol ogy Cl WR) [facility] Oncology [facility]) OUTPATIENT [id number] NADEGE KEEN 11/05 Released w/o Limitations [facility]( ZZOncol [facility]gy Cl [facility]) [facility] DF) OUTPATIENT [id number] labwork results LAURI TENORIO 12/25 Released w/o Limitations [facility]( Fam Practic e DF) [facility] DF) OUTPATIENT [id number] pinched nerve in shoulde r ELLIOTT FORMAN 01/07 Released w/o Limitations [facility]( Fam Pract[facility] e DF) [facility] DF) TELE CONSULT [id number] med issue ELLIOTT FORMAN 01/09 [facility]( Fam Practic e DF) [facility] DF) TELE CONSULT [id number] lab orders TEJ XAVIER 03/17 [facility]( Fam Pract[facility] e DF) [facility] DF) OUTPATIENT [id number] F/U lab/cho l check LAURI TENORIO 04/02 Released w/o Limitations [facility]( Fam Practic e DF) [facility] Nurse Cl DF) TELE CONSULT [id number] Triage: allergi c reactio n to bee sting AMALIA BEAVER 06/23 [facility]( FP Nurse Cl DF) [facility](Fa m Practice DF) OUTPATIENT [id number] reaacti on to bee sting saturda y [facility] 06/23 Released w/o Limitations [facility]( Fam Pract[facility] DF) [facility](Fa m Practice DF) OUTPATIENT [id number] additio nal swellin g after bee stings [facility] 06/24 Released w/o Limitations [facility]( F[facility] Pract[facility] DF) [facility](Fa m Practice DF) OUTPATIENT [id number] Annual PE [facility] 09/08 Released w/o Limitations [facility]( Fam Pract[facility] DF) [facility](Fa m Practice DF) TELE CONSULT [id number] LABS PETE HODGE 09/16 [facility]( Fam Practic e DF) [facility](Fa serina Practice Red DF) OUTPATIENT [id number] f/u results [facility] 12/08 Released w/o Limitations [facility]( Family Practic e [facility] DF) [facility](Fa serina Practice Red DF) OUTPATIENT [id number] bloodwo rk f/u [facility] 02/20 Released w/o Limitations [facility]( Family Pract[facility] e Red DF) [facility](Fa serina Practice Red DF) OUTPATIENT [id number] pink eye TRISTEN DUTTA 09/23 Released w/o Limitations [facility]( Family Pract[facility] DF) [facility] DF) OUTPATIENT [id number] f/u per dr dutta for TRISTEN Spivey 10/09 Released w/o Limitations [facility]( Family Pract[facility] e Red DF) [facility](Fa serina Practice [facility] DF) TELE CONSULT [id number] Lab results TRISTEN DUTTA 10/28 [facility]( Family Pract[facility] e Red DF) [facility](Fa serina Practice [facility] DF) OUTPATIENT [id number] F/U LABS PER TRISTEN MARTI 11/02 Released w/o Limitations [facility]( Family Practic e Red DF) [facility](Fa serina Practice Red DF) TELE CONSULT [id number] Iron panel results TEJ XAVIER 11/03 [facility]( Family Practic e Red DF) [facility](Fa serina Practice Red DF) OUTPATIENT [id number] follow up TRISTEN Lopez Gaudencio 12/15 Released w/o Limitations [facility]( Family Practic e Red DF) [facility](On cology Cl FB) OUTPATIENT [id number] initial appt SUE AYALA 01/14 Released w/o Limitations [facility]( Oncolog y Cl FB) [facility](Fa serina [facility] DF) OUTPATIENT [id number] TIEN Strange 01/22 Released w/o Limitations [facility]( Family Pract[facility] DF) [facility](On cology Cl FB) OUTPATIENT [id number] Hypochr omic / microcy tic anemia SUE AYALA 02/10 Released w/o Limitations [facility]( Oncolog y Cl FB) [facility](Ur ology Cl FB) TELE CONSULT [id number] Contact ed to give urology instruc tions. ZO ALEJO 02/14 [facility]( Urology Cl FB) [facility](GI Cl FB) OUTPATIENT [id number] iron def DAX ROBERTS S 02/17 Released w/o Limitations [facility]( GI Cl FB) [facility](GI Cl FB) OUTPATIENT [id number] CHRISTA CLAY 02/17 Released w/o Limitations [facility]( GI Cl FB) [facility](ZZ Urology Cl WR) TELE CONSULT [id number] CHEO Gonzalez 02/24 [facility]( ZZUrolo gy Cl WR) [facility](Fa serina Practice [facility] DF) OUTPATIENT [id number] painful sore in mouth DERRICK PASCUAL 02/26 Released w/o Limitations [facility]( Family Practic e [facility] DF) [facility](Fa serina Practice [facility] DF) OUTPATIENT [id number] f/u mouth ulcer DERRICK PASCUAL 02/28 Released w/o Limitations [facility]( Family Practic e Red DF) [facility](On cology Cl FB) OUTPATIENT [id number] f/u SUE AYALA 03/14 Released w/o Limitations [facility]( Oncolog y Cl FB) [facility](Ch emotherap y Cl FB) OUTPATIENT [id number] iron MYRON Dowling 03/16 Released w/o Limitations [facility]( Chemoth erapy Cl FB) [facility](Ur ology Cl FB) TELE CONSULT [id number] Notes Entered by: ST KRYSTA ROSSI GRUM 24 Mar 2012 1756 ------- ------- ------- ------- -- rads CHEO ROSSI GRTYLER 03/24 [facility]( Urology Cl FB) [facility](Ur ology Cl FB) OUTPATIENT [id number] HYDRONE PHROSIS BILATER AL CHEO ROSSI GRUM 03/25 Released w/o Limitations [facility]( Urology Cl FB) [facility](On cology Cl FB) OUTPATIENT [id number] follow up SUE AYALA 04/08 Released w/o Limitations [facility]( Oncolog y Cl FB) [facility](GI Cl FB) TELE CONSULT [id number] path DAX ROBERTS 04/15 [facility]( GI Cl FB) [facility] DF) OUTPATIENT [id number] pt lab results / TRISTEN DUTTA 04/28 Released w/o Limitations [facility]( Family Practic e Red DF) [facility](GI Cl FB) OUTPATIENT [id number] procedu re follow- up DAX ROBERTS 05/03 Released w/o Limitations [facility]( GI Cl FB) [facility](GI Cl FB) OUTPATIENT [id number] PILL CAM. DAX ROBERTS 06/02 Released w/o Limitations [facility]( GI Cl FB) [facility](On cology Cl FB) OUTPATIENT [id number] f/u SUE AYALA 06/14 Released w/o Limitations [facility]( Oncolog y Cl FB) [facility](GI Cl FB) OUTPATIENT [id number] f/u DAX ROBERTS S 06/14 Released w/o Limitations [facility]( GI Cl FB) [facility] Red DF) OUTPATIENT [id number] PERSIST ENT (R) ARM PAIN DUTTAMARCOSTRISTEN S 06/15 Released w/o Limitations [facility]( Family Practic e [facility] DF) [facility](GI Cl FB) OUTPATIENT [id number] Notes Entered by: Rosalva FALL 10 Jul 2012 0709 ------- ------- ------- ------- -- Johnathanumekrystina tatchristina of VCE report in EMR AJAY FALL 07/10 Released w/o Limitations [facility]( GI Cl FB) [facility] DF) OUTPATIENT [id number] F/U L ARM NUMBNES S/PAIN AT NIGHT X 1 MONTH TRISTEN DUTTA S 07/28 Released w/o Limitations [facility]( Family Practic e Red DF) [facility](GI Cl FB) TELE CONSULT [id number] Notes Entered by: ALLI MEDLEY 28 Jul 2012 1641 ------- ------- ------- ------- -- DAX Galloway 07/28 [facility]( GI Cl FB) [facility](GI Cl FB) TELE CONSULT [id number] Notes Entered by: ALLI MEDLEY 21 Sep 2012 1207 ------- ------- ------- ------- -- DAX MONSALVE 09/21 [facility]( GI Cl FB) [facility] Red DF) OUTPATIENT [id number] arm pain, prescri pt refill LAURI TENORIO 10/25 Released w/o Limitations [facility]( Family Practic e [facility] DF) [facility](Fa [facility] DF) OUTPATIENT [id number] er f/u BROOKE LYLE 05/08 Released w/o Limitations [facility]( [facility] Pract[facility] DF) [facility](Ur ology Cl FB) OUTPATIENT [id number] GROSS HEMATUR CHEO MEADOWS GRUM 05/19 Released w/o Limitations [facility]( Urology Cl FB) [facility](Ur ology Cl FB) OUTPATIENT [id number] cysto per CHEO SKAGGS GRUM 06/23 Released w/o Limitations [facility]( Urology Cl FB) [facility](Fa serina Practice [facility] DF) OUTPATIENT [id number] bloodwo rk f/u BROOKE LYLE 09/21 Released w/o Limitations [facility]( Family Pract[facility] DF) [facility](Fa serina Practice [facility] DF) OUTPATIENT [id number] blood in stool PAOLAHUYSirisha Cancino 11/03 Released w/o Limitations [facility]( Family Pract[facility] DF) [facility](Fa serina Practice [facility] DF) TELE CONSULT [id number] Notes Entered by: AMRIT BLAIR 16 Dec 2013 0711 ------- ------- ------- ------- -- lab follow up AMRIT BLAIR 12/16 [facility]( Family Pract[facility] DF) [facility](Fa serina Practice Red DF) TELE CONSULT [id number] Notes Entered by: MILLY TAN 18 Dec 2013 1505 ------- ------- ------- ------- -- a1c high TEJ XAVIER 12/18 [facility]( Family Practic e [facility] DF) [facility](Fa sreina Practice Red DF) TELE CONSULT [id number] Notes Entered by: TEJ XAVIER 26 Dec 2013 1046 ------- ------- ------- ------- -- med refill TEJ XAVIER 12/26 [facility]( Family Practic e [facility] DF) [facility](Fa serina Practice [facility] DF) OUTPATIENT [id number] follow up BROOKE LYLE 12/29 Released w/o Limitations [facility]( Family Pract[facility] e Red DF) [facility](Nu trition Cl DF) OUTPATIENT [id number] pre-vera ROSY Castro Jaquan 02/19 Released w/o Limitations [facility]( Nutriti on Cl DF) [facility](Fa serina Practice [facility] DF) TELE CONSULT [id number] Notes Entered by: TEJ XAVIER 12 Mar 2014 1619 ------- ------- ------- ------- -- med refill -Metfor min XR 500mg tabs TEJ XAVIER 03/12 [facility]( Family Pract[facility]) [facility](Fa serina Practice [facility] DF) OUTPATIENT [id number] f/u labs DARIELA , BROOKE 06/22 Released w/o Limitations [facility]( Family Practic e Red DF) [facility](GI Cl FB) TELE CONSULT [id number] Notes Entered by: JALEEL PARRA 29 Jun 2014 1429 ------- ------- ------- ------- -- self referra l open access LORENZO ARAUJO 06/29 [facility]( GI Cl FB) [facility](Fa serina Practice Red DF) TELE CONSULT [id number] Notes Entered by: TEJ XAVIER 02 Jul 2014 1356 ------- ------- ------- ------- -- REFERRA L FOR VASHTI YOUNG 07/02 [facility]( Family Practic e Red DF) [facility](GI Cl FB) OUTPATIENT [id number] Red blood in bowel movemen t (hemato chezia) JENNIFER PALMER 08/16 Released w/o Limitations [facility]( GI Cl FB) [facility](Fa serina Practice [facility] DF) OUTPATIENT [id number] F/U labs NICCIULACHRISTOPHER , BROOKE 11/09 Released w/o Limitations [facility]( Family Practic e Red DF) [facility](Fa serina Practice Red DF) TELE CONSULT [id number] Notes Entered by: CHANTEL GUZMAN 20 Feb 2015 1104 ------- ------- ------- ------- -- med renewal TEJ XAVIER 02/20 [facility]( Family Practic [facility] DF) [facility] DF) OUTPATIENT [id number] BILLIE LION 03/05 Released w/o Limitations [facility]( Family Practic e [facility] DF) [facility] DF) TELE CONSULT [id number] Notes Entered by: TEJ XAVIER 07 Mar 2015 1423 ------- ------- ------- ------- -- PT BILLIE JOSEPH 03/07 [facility]( Family Practic e Red DF) [facility] Red DF) TELE CONSULT [id number] Notes Entered by: BUSHRA MARTINS 12 Mar 2015 1545 ------- ------- ------- ------- -- BILLIE Joseph 03/12 [facility]( Family Pract[facility]) [facility](Ph ys Therapy DF) OUTPATIENT [id number] EMEKA CAMEJO 04/10 Released w/o Limitations [facility]( Phys Therapy DF) [facility](Ph ys Therapy DF) OUTPATIENT [id number] CERVICA L BENJAMÍN PABLO 04/16 Released w/o Limitations [facility]( Phys Therapy DF) [facility](Ph ys Therapy DF) OUTPATIENT [id number] BENJAMÍN RAMOS 04/18 Released w/o Limitations [facility]( Phys Therapy DF) [facility](Ph ys Therapy DF) OUTPATIENT [id number] MICHELLE BLANCO 04/24 Released w/o Limitations [facility]( Phys Therapy DF) [facility](Ph ys Therapy DF) OUTPATIENT [id number] BENJAMÍN RAMOS 04/26 Released w/o Limitations [facility]( Phys Therapy DF) [facility](Ph ys Therapy DF) OUTPATIENT [id number] MICHELLE BLANCO 05/02 Released w/o Limitations [facility]( Phys Therapy DF) [facility](Ph ys Therapy DF) OUTPATIENT [id number] MJ RAMOSPranay Serna 05/07 Released w/o Limitations [facility]( Phys Therapy DF) [facility](Ph ys Therapy DF) OUTPATIENT [id number] ILANAEMEKA VARGAS Pranay 05/08 Released w/o Limitations [facility]( Phys Therapy DF) [facility](Ph ys Therapy DF) OUTPATIENT [id number] BASHIRSYDNIEMEKA A 07/10 Released w/o Limitations [facility]( Phys Therapy DF) [facility](Fa [facility]ina [facility] DF) TELE CONSULT [id number] Notes Entered by: TEJ XAVIER 10 Dec 2015 0944 ------- ------- ------- ------- -- BILLIE PEREZ 12/09 [facility]( Family Practic [facility]) [facility](Fa serina Practice [facility] DF) OUTPATIENT [id number] lab f/u BILLIE ROME 12/16 Released w/o Limitations [facility]( Family Pract[facility] e [facility] DF) [facility](Fa serina Practice [facility] DF) OUTPATIENT [id number] pt pe BILLIE ROME 01/25 Released w/o Limitations [facility]( Family Pract[facility]) [facility](Im munizatio n DF) OUTPATIENT [id number] Notes Entered by: NGA YU 19 Feb 2017 0936 ------- ------- ------- ------- -- ARINA Robbins 02/19 Released w/o Limitations [facility]( Immuniz ation DF) [facility](Im munizatio n DF) OUTPATIENT [id number] Notes Entered by: KENNEDY VORA 11 Mar 2017 1335 ------- ------- ------- ------- -- PAMELA Yu 03/11 Released w/o Limitations [facility]( Immuniz ation DF) [facility](Fa serina Practice [facility] DF) TELE CONSULT [id number] Notes Entered by: TEJ XAVIER 01 Feb 2018 1459 ------- ------- ------- ------- -- lab orders TEJ XAVIER 02/01 [facility]( Family Practic e [facility]) [facility](Fa serina Practice [facility] DF) OUTPATIENT [id number] ETTA Morejon 02/11 Released w/o Limitations [facility]( Family Pract[facility]) [facility](Fa serina Practice [facility] DF) OUTPATIENT [id number] F/U ON PRE-DM/ LABS MORENAMANDASYDNICHIQUIS N 06/22 Released w/o Limitations [facility]( Family Pract[facility]) [facility](Fa serina Practice [facility] DF) TELE CONSULT [id number] 1 Notes Entered by: TEJ XAVIER 14 Mar 2019 1531 ------- ------- ------- ------- -- interim refill SHEMAR CHIQUIS N 03/14 [facility]( Family Practic e [facility]) [facility](Fa serina Practice [facility] DF) TELE CONSULT [id number] 5 Notes Entered by: TEJ XAVIER 16 Mar 2019 0948 ------- ------- ------- ------- -- interim refill and lab orders TEJ XAVIER 03/16 [facility]( Family Practic e [facility]) [facility](Fa serina Practice [facility] DF) OUTPATIENT [id number] 0 CHIQUIS [place] N 04/05 Released w/o Limitations [facility]( Family Practic e [facility]) [facility](Im munizatio n DF) OUTPATIENT [id number] 5 Notes Entered by: Rosalva VARGAS 05 Apr 2019 1851 ------- ------- ------- ------- -- PCM Immuniz ation TOBIN MACDONALD 04/05 Released w/o Limitations [facility]( Immuniz ation DF) [facility](Im munizatio n DF) OUTPATIENT [id number] 9 Notes Entered by: SUE VILLEGAS 27 Apr 2019 1645 ------- ------- ------- ------- -- tetanus KYAW CARVAJAL 04/27 Released w/o Limitations [facility]( Immuniz ation DF) [facility](Fa serina Practice [facility] DF) OUTPATIENT [id number] 2 cold and flu sympton s with fever CHIQUIS STATON N 07/06 Released w/o Limitations [facility]( Family Pract[facility]) [facility](Fa serina Practice [facility] DF) OUTPATIENT [id number] 3 cold symptom s HANNAH GUEVARA 07/29 Released w/o Limitations [facility]( Family Pract[facility]) [facility](Fa serina Practice [facility] DF) OUTPATIENT [id number] 6 shoulde r pains CHIQUIS STATON N 09/23 Released w/o Limitations [facility]( Family Practic e [facility] DF) [facility](Im munizatio n DF) OUTPATIENT [id number] 2 Notes Entered by: Rosalva VARGAS 23 Sep 2019 0741 ------- ------- ------- ------- -- PCM Immuniz ations ARNALDO CASILLAS 09/23 Released w/o Limitations [facility]( Immuniz ation DF) [facility](Fa serina Practice [facility] DF) OUTPATIENT [id number] 4 sore throat and cold sympton s ETTA ARRIAZA 11/11 Released w/o Limitations [facility]( Family Practic e [facility] DF) [facility](Ph ys Therapy DF) OUTPATIENT [id number] neck EMEKA CAMEJO 11/21 Released w/o Limitations [facility]( Phys Therapy DF) [facility](Ph ys Therapy DF) OUTPATIENT [id number] 8 F/U APPT Cervica lgia EMEKA CAMEJO A 01/14 Released w/o Limitations [facility]( Phys Therapy DF) [facility](Fa serina [facility] DF) TELE CONSULT [id number] 3 Notes Entered by: RAMU ZELAYA 15 Mar 2020 1505 ------- ------- ------- ------- -- labs needed prior to appoint CHIQUIS Rhodes 03/15 [facility]( Family Practic [facility]) [facility](Fa serina Practice [facility] DF) TELE CONSULT [id number] 4 Notes Entered by: AMALIA ROBERSON 26 Mar 2020 0803 ------- ------- ------- ------- -- Med refill CHIQUIS STATON 03/26 [facility]( Family Practic e [facility] DF) [facility](Fa serina Practice Red DF) TELE CONSULT [id number] 2 Notes Entered by: AMALIA ROBERSON 29 Mar 2020 1018 ------- ------- ------- ------- -- Med refill CHIQUIS STATON 03/29 [facility]( Family Practic e Red DF) [facility](Fa serina Practice Red DF) TELE CONSULT [id number] 0 Notes Entered by: AMALIA ROBERSON 13 May 2020 1137 ------- ------- ------- ------- -- Med refill AMALIA QUAN ELS 05/13 [facility]( [facility] TELE CONSULT [id number] Notes Entered by: AMALIA ROBERSON 14 May 2020 0737 ------- ------- ------- ------- -- Med refill CHIQUIS STATON 05/14 [facility]( [facility] OUTPATIENT [id number] annual [facility] [place] 06/11 Released w/o Limitations [facility]( [facility]) [facility](Im munizatio n FB) OUTPATIENT [id number] Notes Entered by: ANA LILIA CastilloMIGUELITO A K 10 Jan 2021 1512 ------- ------- ------- ------- -- COVID-1 9 VACCINE 1/2 STEVEN COLLINS 01/10 Released w/o Limitations [facility]( Immuniz ation FB) [facility] n FB) OUTPATIENT [id number] Notes Entered by: PATEL BARRIOSBEVERLYEVAN BUSH 31 Jan 2021 1509 ------- ------- ------- ------- -- covid 19 vaccine SANTHOSH SHAGGY 01/31 Released w/o Limitations [facility]( Immuniz ation FB) [facility] Red [facility]) TELE CONSULT [id number] Notes Entered by: AMALIA ROBERSON 17 Mar 2021 1038 ------- ------- ------- ------- -- Lab request AMALIA QUAN ELS 03/17 [facility]( [facility]) [facility]) TELE CONSULT [id number] Notes Entered by: Michael GUEVARA 25 Mar 2021 1249 ------- ------- ------- ------- -- HANNAH Cosby 03/25 [facility]( [facility]) [facility]) OUTPATIENT [id number] annual HANNAH Irene 04/01 Released w/o Limitations [facility]( [facility]) [facility]) TELE CONSULT [id number] Notes Entered by: Michael GUEVARA 01 Apr 2021 1439 ------- ------- ------- ------- -- Hand x-rays AMALIA QUAN ELS 04/01 [facility]( [facility]) [facility]) TELE CONSULT [id number] Notes Entered by: AMALIA ROBERSON 02 Apr 2021 0901 ------- ------- ------- ------- -- Med refill AMALIA QUAN ELS 04/02 [facility]( [facility] e Red ) [facility]) TELE CONSULT [id number] Notes Entered by: AMALIA ROBERSON 19 May 2021 1613 ------- ------- ------- ------- -- Med refill AMALIA QUAN ELS 05/19 [facility]( [facility]) [facility]( munizatio n ) OUTPATIENT [id number] Notes Entered by: YESSI JEREZ 16 Aug 2021 1452 ------- ------- ------- ------- -- FLU SHOT JUANITO JEREZ 08/16 Released w/o Limitations [facility]( Immuniz ation FB) [facility]( munizatio n ) OUTPATIENT [id number] Notes Entered by: JACKLYN BUI 15 Oct 2021 1343 ------- ------- ------- ------- -- COVID VACCC 3RD DOSE NALDO YU 10/15 Released w/o Limitations [facility]( Immuniz ation FB) [facility]) TELE CONSULT [id number] Notes Entered by: AMALIA ROBERSON 25 Nov 2021 1431 ------- ------- ------- ------- -- lab order HANNAH Escobar 11/25 [facility]( [facility]) TELE CONSULT [id number] Notes Entered by: Michael GUEVARA 02 Dec 2021 0818 ------- ------- ------- ------- -- Laborat HANNAH Dailey 12/02 [facility]( [facility]) [facility]) OUTPATIENT [id number] resched ule: annual pe ANA ARIAS 12/11 Released w/o Limitations [facility]( [facility]) [facility](Im munizatio n FB) OUTPATIENT [id number] Notes Entered by: GABRIELA CEBALLOS DO 15 May 2022 0947 ------- ------- ------- ------- -- COVID VAC 4TH DOSE JAMES SALAZAR 05/15 Released w/o Limitations [facility]( Immuniz ation FB) [facility]) TELE CONSULT [id number] Notes Entered by: Pranay HOBBS 11 Jun 2022 1658 ------- ------- ------- ------- -- elevate AURA Garcia 06/11 [facility]( [facility]) [facility]) OUTPATIENT [id number] annual pe AURA HOBBS 06/16 Released w/o Limitations [facility]( [facility]) [facility](Im munizatio n DF) OUTPATIENT [id number] Notes Entered by: JT FERNANDEZ 16 Jun 2022 1335 ------- ------- ------- ------- -- pcm/pnu emovax AGTIA MACK 06/16 Released w/o Limitations [facility]( Immuniz ation DF) [facility] DF) TELE CONSULT [id number] Notes Entered by: DOUG MARTINES 02 Jul 2022 0932 ------- ------- ------- ------- -- Lab result - low Iron AURA HOBBS T 07/02 [facility]( [facility]) [facility]( [facility]) OUTPATIENT [id number] ELevate d PSA f2f [id number] [email or web address] GAGE MOSHER 07/06 Released w/o Limitations [facility]( [facility] ) [facility]) OUTPATIENT [id number] Follow Up For Screeni ng AURA HOBBS T 08/31 Released w/o Limitations [facility]( [facility]) [facility](Im munizatio n DF) OUTPATIENT [id number] Notes Entered by: BRIGHT FINK 31 Aug 2022 180 ------- ------- ------- ------- -- PCM/VAC C flu TIA DIGGS 08/31 Released w/o Limitations [facility]( Immuniz ation DF) [facility](Nu trition Cl DF) OUTPATIENT [id number] diet; pre diabeti c SAMANTHA CALLES 10/20 Released w/o Limitations [facility]( Nutriti on Cl DF) [facility]) OUTPATIENT [id number] bloodwo rk follow up AURA HOBBS 10/30 Released w/o Limitations [facility]( [facility]) [facility]( [facility]) OUTPATIENT [id number] VH [id number] GAGE MOSHER 11/05 Released w/o Limitations [facility]( Urology Clinic ) [id number]-375 th [facility] [id number] Encount er for fitting and adjustm ent of spectac les and contact lenses, Encount er for adminis trative examina tions, unspeci fied IVETTE 06/29 Discharge Disposition: Home or Self Care 0055C-[address] [place] [address] Procedures Combined list of: 1) Procedures from Department of Veterans Affairs facilities going back up to thelast 18 months, not all VA non-surgical procedures are included; 2) All procedures from the Department of Defense facilities. Procedure Procedure Type Code Date Perfomer Comments Sourc e Tdap Vaccine Tdap Vaccine 98682 2018 KYAW CARVAJAL Tdap; Series #: 1; 0.5 mL; IM; Left Arm; Mfg: Guest[employer]; Lot: [id number]; VIS given (Bob: 12/04/14). [facility] Immunization Administration One Vaccine Immunization Administration One Vaccine [id number] KYAW CARVAJAL [facility] Immunization Administration One Vaccine Immunization Administration One Vaccine [id number] TOBIN MACDONALD [facility] Zoster Vaccine, Live Zoster Vaccine, Live 48890 2016 PAMELA MARSHALL Zoster; Series #: 1; .65 mL; SC; Right Arm; Mfg: Merck; Lot: [id number]; VIS given (Bob: 07/16/2009). [facility] Immunization Administration One Vaccine Immunization Administration One Vaccine [id number] PAMELA MARSHALL [facility] Pneumococcal Conjugate Vaccine, 13-Valent, IM Use Pneumococcal Conjugate Vaccine, 13-Valent, IM Use 86243 2016 ARINA TELLEZ Pneumococcal conjugate PCV 13; Series #: 1; .5 mL; IM; Right Arm; Mfg: WYETH-LEDERLE; Lot: [id number]; VIS given (Bob: 08/15/15). [facility] Immunization Administration One Vaccine Immunization Administration One Vaccine [id number] ARINA TELLEZ [facility] Physical Medicine Physical Therapy Re-Evaluation Physical Medicine Physical Therapy Re-Evaluation 71448 2014 EMEKA CAMEJO Physical Medicine Physical Therapy Re-Evaluation Physical Medicine Physical Therapy Re-Evaluation 89377 2014 EMEKA CAMEJO [facility] Physical Therapy: ___ Se ion Segments, 15 Minutes Each Physical Therapy: ___ Session Segments, 15 Minutes Each 80362 2014 BENJAMÍN RAMOS [facility] Physical Therapy: ___ Se ion Segments, 15 Minutes Each Physical Therapy: ___ Session Segments, 15 Minutes Each 85086 2014 MICHELLE BLANCO [facility] Modalities Heat Hot Packs Modalities Heat Hot Packs 09877 2014 [facility] Traction Cervical Traction Cervical 30617 04/26 RAMOS [facility] Physical Therapy: ___ Se ion Segments, 15 Minutes Each Physical Therapy: ___ Session Segments, 15 Minutes Each 34538 2014 [place] [facility] Modalities Traction Modalities Traction 89764 2014 MICHELLE BLANCO [facility] Modalities Heat Hot Packs Modalities Heat Hot Packs 53390 2014 RAMOS [facility] Traction Cervical Traction Cervical 44534 04/19 [facility] Physical Therapy: ___ Se ion Segments, 15 Minutes Each Physical Therapy: ___ Session Segments, 15 Minutes Each 88920 2014 [facility] Modalities Heat Hot Packs Modalities Heat Hot Packs 01048 2014 [facility] Traction Cervical Traction Cervical 32788 04/16 [facility] Physical Therapy: ___ Se ion Segments, 15 Minutes Each Physical Therapy: ___ Session Segments, 15 Minutes Each 17128 2014 [facility] Exercises A isted Exercises For ROM Exercises Assisted Exercises For ROM 02353 2014 EMEKA CAMEJO Mobilization Soft Ti ue Mobilization Soft Tissue 47294 2014 EMEKA CAMEJO Modalities Traction Manual (Each Region 15 Minutes) Modalities Traction Manual (Each Region 15 Minutes) 20544 2014 EMEKA CAMEJO Physical Medicine Physical Therapy Evaluation Physical Medicine Physical Therapy Evaluation 69026 2014 EMEKA CAMEJO [facility] Coordinated care fee, maintenance rate 2014 BUSHRA DUMONT [facility] Case Management, each 15 minutes 2014 BUSHRA DUMONT [facility] Medical Nutrition Therapy Initial A e ment, Intervention Medical Nutrition Therapy Initial Assessment, Intervention 33717 2013 ROSY ORDAZ I [facility] Cystoscopy (Diagnostic) Cystoscopy (Diagnostic) 65417 2012 CHEO ROSSI [facility] Automated UA Without Microscopic Exam Automated UA Without Microscopic Exam 86703 2012 CHEO ROSSI [facility] Capsule Endoscopy Esophagus Through Ileum Capsule Endoscopy Esophagus Through Ileum 15827 2011 AJAY FALL DoD Parenteral Fluids IV Infusion Each Additional Hour Parenteral Fluids IV Infusion Each Additional Hour 19260 2011 ROBERTA AMATO Iron Dextran Infusion [facility] Parenteral Fluids IV Infusion Up To 1 Hour Parenteral Fluids IV Infusion Up To 1 Hour 16623 2011 ROBERTA AMATO Premeds DoD Modalities Heat Hot Packs Modalities Heat Hot Packs 82061 2005 BONITA BOLANOS Modalities Paraffin Bath Modalities Paraffin Bath 13704 2005 BONITA BOLANOS Modalities Ultrasound Modalities Ultrasound 61698 2005 BONITA BOLANOS Modalities Electrical Stimulation Modalities Electrical Stimulation 54820 2005 BONITA BOLANOS Training And Self-Care Skills Training And Self-Care Skills 55000 2005 BONITA BOLANOS Occupational Therapy Re-Evaluation Occupational Therapy Re-Evaluation 59078 2005 BONITA BOLANOS Modalities Iontophoresis Modalities Iontophoresis 58093 2005 BONITA BOLANOS Modalities Ultrasound Modalities Ultrasound 70185 2005 BONITA BOLANOS Exercises A isted Exercises For ROM Exercises Assisted Exercises For ROM 99635 2005 BONITA BOLANOS Modalities Heat Hot Packs Modalities Heat Hot Packs 67077 2005 BONITA BOLANOS Modalities Electrical Stimulation Modalities Electrical Stimulation 49465 2005 BONITA BOLANOS Modalities Paraffin Bath Modalities Paraffin Bath 48382 2005 BONITA BOLANOS Modalities Iontophoresis Modalities Iontophoresis 35609 2005 BONITA BOLANOS Modalities Heat Hot Packs Modalities Heat Hot Packs 81260 2005 JAZIEL NÚÑEZ Modalities Electrical Stimulation Modalities Electrical Stimulation 98396 2005 JAZIEL NÚÑEZ Modalities Paraffin Bath Modalities Paraffin Bath 55915 2005 JAZIEL NÚÑEZ Modalities Ultrasound Modalities Ultrasound 78109 2005 JAZIEL NÚÑEZ DoD Modalities Iontophoresis Modalities Iontophoresis 28631 2005 JAZIEL NÚÑEZ Modalities Ultrasound Modalities Ultrasound 53257 2005 JAZIEL NÚÑEZ DoD Modalities Paraffin Bath Modalities Paraffin Bath 85653 2005 JAZIEL NÚÑEZ Modalities Electrical Stimulation Modalities Electrical Stimulation 70408 2005 JAZIEL NÚÑEZ DoD Modalities Heat Hot Packs Modalities Heat Hot Packs 47540 2005 JAZIEL NÚÑEZ Modalities Iontophoresis Modalities Iontophoresis 97250 2005 JAZIEL NÚÑEZ Modalities Heat Hot Packs Modalities Heat Hot Packs 98887 2005 JAZIEL NÚÑEZ DoD Modalities Paraffin Bath Modalities Paraffin Bath 55500 2005 JAZIEL NÚÑEZ Modalities Ultrasound Modalities Ultrasound 21119 2005 JAZIEL NÚÑEZ Modalities Electrical Stimulation Modalities Electrical Stimulation 68574 2005 JAZIEL NÚÑEZ Modalities Iontophoresis Modalities Iontophoresis 68732 2005 JAZIEL NÚÑEZ Modalities Heat Hot Packs Modalities Heat Hot Packs 92679 2005 JAZIEL NÚÑEZ DoD Modalities Paraffin Bath Modalities Paraffin Bath 22335 2005 JAZIEL NÚÑEZ Modalities Ultrasound Modalities Ultrasound 91148 2005 JAZIEL NÚÑEZ Modalities Iontophoresis Modalities Iontophoresis 79265 2005 JAZIEL NÚÑEZ DoD Modalities Electrical Stimulation Modalities Electrical Stimulation 02238 2005 JAZIEL NÚÑEZ DoD Modalities Paraffin Bath Modalities Paraffin Bath 43115 2005 BONITA BOLANOS DoD Modalities Heat Hot Packs Modalities Heat Hot Packs 27078 2005 BONITA BOLANOS Exercises A isted Exercises For ROM Exercises Assisted Exercises For ROM 56019 2005 BONITA BOLANOS Modalities Ultrasound Modalities Ultrasound 12850 2005 BONITA BOLANOS DoD Modalities Electrical Stimulation Modalities Electrical Stimulation 10006 2005 BONITA BOLANOS [facility] Modalities Iontophoresis Modalities Iontophoresis 52115 2005 BONITA BOLANOS [facility] Occupational Therapy Evaluation Occupational Therapy Evaluation 38209 2005 BONITA BOLANOS [facility] Corticosteroids Injection Right Wrist Extensor Tendons Corticosteroids Injection Right Wrist Extensor Tendons 46178 2005 ROBB ADAMES [facility] Injection, dexamethasone sodium phosphate, 1 mg 2005 ROBB ADAMES [facility] Immunization Administration One Vaccine Immunization Administration One Vaccine 84427 ARNALDO CASILLAS [facility] Mobilization Soft Ti ue Mobilization Soft Tissue 00377 EMEKA CAMEJO [facility] Physical Medicine Physical Therapy Re-Evaluation Physical Medicine Physical Therapy Re-Evaluation 25106 EMEKA CAMEJO [facility] Pneumococcal Polysaccharide Vaccine (Age 2Y+) Pneumococcal Polysaccharide Vaccine (Age 2Y+) 54497 TIA DIGGS Pneumococcal polysaccharide PPV23 (Pneumovax 23); Series #: 1; 0.5 mL; IM; Left Arm; Mfg: [employer]; Lot: [id number]; Exp: 06/08/23 VIS given (Bob: 08/09/2019). [facility] Medical Nutrition Therapy Initial A e ment, Intervention Medical Nutrition Therapy Initial Assessment, Intervention 95651 SAMANTHA CALLES [facility] Waiver services; not otherwise specified (NOS) GAGE MOSHER [facility] No data available for this section Ambulato ry Pharmacy Social History Combined list of available smoking, tobacco, and other social history from Department of Defense and Veterans Affairs facilities. Social History Type Response Date Comment Sour e Sex Representation Male (finding) 11/26/2022 Un known Organization This section is an empty social history section. [facility] Sexual Orientation Ambula tory Pharmacy Gender identity Ambulator y Pharmacy Assessment and Plan Combined list of future care activities from Department of Defense and Veterans Affairs facilities (e.g., assessment and plan notes, appointments, orders, and referrals). Additional future care activities may be listed in the Plan of Care section. Result Assessment and Plan Date Source Assessment and Plan Extracted from:Title : Glasses order Author: THERESE BRENNER Date: 06/29/24 Encounter for administrative examinations, unspecified Extracted from:Title: Office Clinic Note Author: SIM CHAMBERS MD Date: 04/06/23 1. H [place] - Hypertension 2. H yperlipidemia Ordered: Comprehensive Metabolic Panel Lipid Panel 3. E rectile dysfunction 4. H ypothyroidism Ordered: Thyroid Stimulating Hormone 5. C ancer screening follow up Ordered: Prostate Specific Antigen Orders: cholecalciferol(cholecalciferol 25 mcg (1000 intl units) oral capsule), 1 cap(s), Oral, Daily, # 90 cap(s), 0 total refill(s), Maintenance, 1 cap(s) Oral Daily, Pharmacy: [facility] [Not filled] folic acid(folic acid 1 mg oral tablet), 1 tab(s), Oral, Daily, # 90 tab(s), 0 total refill(s), Maintenance, 1 tab(s) Oral Daily, Pharmacy: [facility] [Not filled] levothyroxine(levothyroxine 50 mcg oral tablet), 1 tab(s), Oral, Daily, for thyroid, # 90 tab(s), 0 total refill(s), Maintenance, 1 tab(s) Oral Daily,Instr:for thyroid, Pharmacy: [facility] [Not filled] losartan(losartan 25 mg oral tablet), 1 tab(s), Oral, Daily, for blood pressure, # 90 tab(s), 3 total refill(s), Maintenance, 1 tab(s) Oral Daily,Instr:for blood pressure, Pharmacy: [facility] [Not filled] sildenafil(sildenafil 25 mg oral tablet), 1 tab(s), Oral, Daily, 1 hour before sexual activity * max 10 per month*, # 10 tab(s), 11 total refill(s), Maintenance, 1 tab(s) Oral Daily,Instr:1 hour before sexual activity * max 10 per month*, Pharmacy: [facility] [Not filled] simvastatin(simvastatin 20 mg oral tablet), 1 tab(s), Oral, every day at bedtime, for cholesterol, # 90 tab(s), 3 total refill(s), Maintenance, 1 tab(s) Oral every day at bedtime,Instr:for cholesterol, Pharmacy: [facility] [Not filled] CBC w/ Diff 03/20/[address] [place] [address] Assessment and Plan Extracted from:Title : Glasses order Author: THERESE BRENNER Date: 06/29/24 Encounter for administrative examinations, unspecified Extracted from:Title: Office Clinic Note Author: SIM CHAMBERS MD Date: 04/06/23 1. H [place] - Hypertension 2. H yperlipidemia Ordered: Comprehensive Metabolic Panel Lipid Panel 3. E rectile dysfunction 4. H ypothyroidism Ordered: Thyroid Stimulating Hormone 5. C ancer screening follow up Ordered: Prostate Specific Antigen Orders: cholecalciferol(cholecalciferol 25 mcg (1000 intl units) oral capsule), 1 cap(s), Oral, Daily, # 90 cap(s), 0 total refill(s), Maintenance, 1 cap(s) Oral Daily, Pharmacy: [facility] [Not filled] folic acid(folic acid 1 mg oral tablet), 1 tab(s), Oral, Daily, # 90 tab(s), 0 total refill(s), Maintenance, 1 tab(s) Oral Daily, Pharmacy: [facility] [Not filled] levothyroxine(levothyroxine 50 mcg oral tablet), 1 tab(s), Oral, Daily, for thyroid, # 90 tab(s), 0 total refill(s), Maintenance, 1 tab(s) Oral Daily,Instr:for thyroid, Pharmacy: [facility] [Not filled] losartan(losartan 25 mg oral tablet), 1 tab(s), Oral, Daily, for blood pressure, # 90 tab(s), 3 total refill(s), Maintenance, 1 tab(s) Oral Daily,Instr:for blood pressure, Pharmacy: [facility] [Not filled] sildenafil(sildenafil 25 mg oral tablet), 1 tab(s), Oral, Daily, 1 hour before sexual activity * max 10 per month*, # 10 tab(s), 11 total refill(s), Maintenance, 1 tab(s) Oral Daily,Instr:1 hour before sexual activity * max 10 per month*, Pharmacy: [facility] [Not filled] simvastatin(simvastatin 20 mg oral tablet), 1 tab(s), Oral, every day at bedtime, for cholesterol, # 90 tab(s), 3 total refill(s), Maintenance, 1 tab(s) Oral every day at bedtime,Instr:for cholesterol, Pharmacy: [facility] [Not filled] CBC w/ Diff 03/20/2025 [facility] [[email or web address] Functional Status Combined list of recent functional and cognitive assessments recorded at Department of Defense and Veterans Affairs (VA).[facility] Functional [place] Measurement (FIM) Scale: 1 = Total Assistance (Subject = 0% +), 2 = Maximal Assistance (Subject = 25% +), 3 = Moderate Assistance (Subject = 50% +), 4 = Minimal Assistance (Subject = 75% +), 5 = Supervision, 6 = Modified [place] (Device), 7 = Complete [place] (Timely, Safely). Assessment Date/Time Source Assessment Type Assessment Skill Assessment Score Assessment Details No data available for this section
[2025-03-20 16:33] LABS: Hemoglobin A1C 6.3 % (<5.7)
[2025-03-20 16:35] LABS: Iron 93 ug/dL (49-181)
[2025-03-20 16:51] LABS: Percent Iron Saturation 24 % (20-50)
[2025-03-20 17:02] LABS: Alanine Aminotransferase 22 U/L (6-50); Albumin Level 4.9 g/dL (3.5-5.1); Alkaline Phosphatase 70 U/L (38-126); Anion Gap 12 mmol/L (4-12); Aspartate Amino Transferase 38 U/L (17-59); Bilirubin,Total 0.6 mg/dL (0.2-1.3); Blood Urea Nitrogen 12 mg/dL (9-20); Calcium 9.3 mg/dL (8.4-10.2); Carbon Dioxide 26 mmol/L (22-30); Chloride 102 mmol/L (98-107); Estimated Glomerular Filt Rate > 60; Glucose 76 mg/dL (65-110); Potassium 4.4 mmol/L (3.4-5.0); Sodium 140 mmol/L (137-145); Total Protein 8.9 g/dL (6.3-8.2)
[2025-03-20 17:07] LABS: Creatinine Urine 94.2 mg/dL
[2025-03-20 17:20] LABS: Basophils Absolute Auto 0.1 K/mm3 (0.0-0.1); Basophils Percent Auto 0.7 % (0.2-1.2); Eosinophils Absolute Auto 0.1 K/mm3 (0-0.3); Eosinophils Percent Auto 0.9 % (0-4.4); Hematocrit 44.4 % (42.0-52.0); Immature Granulocyte Absolute 0.02 K/mm3 (0.00-0.031); Immature Granulocyte Percent A 0.3 % (0-0.5); Lymphocytes Absolute Auto 2.29 K/mm3 (0.9-3.2); Lymphocytes Percent Auto 33.1 % (18.3-44.2); Mean Corpuscular HGB Conc 29.3 g/dl (32-36); Mean Corpuscular Hemoglobin 22.5 pg (26-34); Mean Corpuscular Volume 76.9 fl (80-100); Mean Platelet Volume 10.1 fl (7.4-10.4); Monocytes Absolute Auto 0.4 K/mm3 (0.1-0.6); Monocytes Percent Auto 6.4 % (2.6-8.5); Neutrophils Absolute Auto 4.1 K/mm3 (1.3-6.7); Neutrophils Percent Auto 58.6 % (45.5-73.1); Platelet Count Result 295 k/mm3 (150-375); Red Blood Count 5.77 M/mm3 (4.6-6.20); Red Cell Distribution Width 16.6 % (11.5-14.5); White Blood Count 6.9 K/mm3 (4.5-10.0)
[2025-03-20 19:11] LABS: MALB Creatinine Ratio < 6.4 mg/g (0-30); Microalbumin Urine Random < 6.0 mg/L (0-16.7)
[2025-03-20 20:54] LABS: Hypochromasia 1+; Ovalocytes 1+; Platelet Estimate Adequate (Adequate)
[2025-03-20 20:55] LABS: Schistocytes None Seen
== END 2025-03-20 09:08 | disposition home or self-care (01) ==
LOC: ANHGOSHLAB 09:08
PROVIDERS: PCP Family Medicine; Visit Provider Family Medicine
DX: D64.9 Anemia, unspecified (principal); I10 Essential (primary) hypertension; E11.9 Type 2 diabetes mellitus without complications; E03.9 Hypothyroidism, unspecified; Z00.00 Encounter for general adult medical examination without abnormal findings
CPT/HCPCS: 36415; 80053; 82043; 82728; 83036; 83540; 83550; 84443; 85025

== ENCOUNTER 2025-04-14 08:09 | Emergency (ER) | payer MEDICARE, OTHER, SELFPAY ==
--- NOTE | 2025-04-14 08:16 | ED.ABDPAIN ---
HPI - Abdominal Pain General Chief Complaint: Abdominal Pain Stated Complaint: Stomach Ache Time Seen by Provider: 04/14/25 08:16 Source: patient and RN notes reviewed Mode of arrival: ambulatory Limitations: no limitations History of Present Illness HPI narrative: 70 y/o male with hx DM and HTN presented for c/o pain across the mid abdomen for one week. Pain is intermittent, Rates pain 2-4/10, described as burning, has not changed in intensity since onset. Pain is improved with eating or laying on the right side. Denies radiating pain, n/v/d/f/c. Denies change in appetite/diet, hematochezia, melena, urinary complaints or flank pain. LBM yesterday. Drinking jackie tea for symptoms. Related Data Allergies Allergy/AdvReac Type Severity Reaction Status Date / Time acetaminophen (From Percocet) Allergy Severe Dizziness Verified 04/14/25 08:38 oxycodone (From Percocet) Allergy Severe Dizziness Verified 04/14/25 08:38 tramadol AdvReac Severe Dizziness Verified 04/14/25 08:38 Review of Systems Review of Systems: CONSTITUTIONAL: Denies body aches, fever, chills ENT: Denies rhinorrhea, congestion CARDIOVASCULAR: Denies chest pain, palpitations, or edema. RESPIRATORY: Denies cough or dyspnea. GASTROINTESTINAL: Endorses abdominal pain, Denies nausea, vomiting, diarrhea, hematochezia, melena GENITOURINARY: Denies dysuria, hematuria, or CVA tenderness. SKIN: Denies rash, itching, or wounds. MUSCULOSKELETAL: Denies back pain, joint pain, or myalgia. NEUROLOGIC: Denies headache All systems reviewed & are unremarkable except as noted in HPI and below PMFSH Past Medical History Medical History Anemia Type 2 diabetes mellitus without complications Bilateral tinnitus Periodontal abscess Impingement of left shoulder Rotator cuff tendinitis Cervical radiculopathy Prediabetes Essential (primary) hypertension Dental root implant present (~02/2023) Erectile dysfunction Vitamin D deficiency Thalassemia alpha carrier Environmental allergies Hypothyroidism Hyperlipemia Surgical History Surgical History History of wisdom tooth extraction (~1994) Family History Family History Mother Lymphoma Sibling Breast cancer Hypertension Social History Social History Smoking status: Never smoker Alcohol intake: former Substance use: never Substance use type: does not use Lack of Transportation: No Lack of Food: Never True Current Housing: I Have Housing Concerned About Future Housing: No Difficulty Paying Gas/Electric Bills: No Difficulty Paying for Meds: No Currently Unemployed: No Education: High School Diploma/GED Difficulty w/ Childcare or Family Care: No Living arrangements: with family Occupation/Education: retired Gender identity (if verbalized by the patient): Male Agree to blood products: Yes Comments At time of signature, I have reviewed and agree with nursing past medical, surgical, social and family history unless otherwise noted. Please see nursing chart for further information. There is no relevant family history pertinent to the presenting complaint Exam Narrative: GENERAL: Well-appearing, and in no acute distress. EYES: EOMI. Conjunctivae normal. ENT: Mucous membranes pink and moist. CHEST: No respiratory distress. Clear to auscultation. HEART: Regular rate and rhythm. No murmur appreciated. Normal peripheral pulses. ABDOMEN: Tender abdomen to RLQ with palpation, abd soft, nondistended, normal active bowel sounds. No guarding, rebound tenderness, asymmetry, negative mayer's sign. EXTREMITIES: Normal range of motion. No edema. SKIN: Warm, dry, no rash. Capillary refill normal. Normal skin turgor. NEURO: No focal deficits. Alert and oriented x3. PSYCH: Normal affect. Course Course Emergency Course: Patient is aware of diagnosis, understands and agrees to treatment plan. Anticipatory guidance given. Patient agrees to follow-up as directed and is aware of reasons to seek care at the emergency department. Portions of this record may have been created with voice recognition software Level of Care: Express Care Visit Vital Signs Vital signs: Vital Signs Temperature 97.6 F 04/14/25 08:19 Pulse Rate 73 04/14/25 08:19 Respiratory Rate 16 04/14/25 08:19 Blood Pressure 132/83 04/14/25 08:19 Pulse Oximetry 99 04/14/25 08:19 Temperature 97.6 F 04/14/25 08:19 Pulse Rate 73 04/14/25 08:19 Respiratory Rate 16 04/14/25 08:19 Blood Pressure 132/83 04/14/25 08:19 Pulse Oximetry 99 04/14/25 08:19 Transfer Transfered to: [facility] Transportation: Other (Private vehicle) Transfer rationale: Pt is agreeable to transfer. Requests transfer to [facility] via private vehicle. Risks of transportation reviewed with pt including injury, worsening of condition and . v/u. Report called to hospital, spoke with , Dr Magdaleno accepting physician. Pt is in stable condition at time of transfer, vss. Advised to remain NPO and go directly to the hospital. MDM - Abdominal Pain MDM Narrative Medical decision making narrative: Pt with one week of intermittent abdominal pain. On exam he is tender to RLQ. Advised ER transfer. Requests [facility]. Differential Diagnosis Differential diagnosis: Likely abdominal pain, acute appendicitis, calculus of kidney, constipation, diverticulitis, gastroenteritis, pancreatitis and small bowel obstruction Discharge Plan Discharge Clinical Impression: Abdominal pain Patient Disposition: Acute Care Hospital Condition: Stable Patient Language: German Prescriptions: No Action cholecalciferol (vitamin D3) 25 mcg (1,000 unit) tablet 25 mcg PO DAILY Qty: 90 3RF fluticasone propionate 50 mcg/actuation spray,suspension 2 spray intranasal DAILY PRN (Reason: allergy symptoms) Qty: 16 2RF folic acid 1 mg tablet 1 mg PO DAILY Qty: 90 2RF levothyroxine [Synthroid] 50 mcg tablet 50 mcg PO DAILY Qty: 90 2RF losartan 25 mg tablet 25 mg PO DAILY Qty: 90 2RF simvastatin 20 mg tablet 20 mg PO QHS Qty: 90 2RF sildenafil 25 mg tablet 25 mg PO DAILY PRN (Reason: sexual activity) Qty: 30 1RF Rx Instructions: administer 30 minutes to 4 hours before activity Follow-up/Referrals: David Aguilera MD [Primary Care Provider] - Time of Disposition: 08:51
[2025-04-14 08:19] VITALS: BP 132/83; PULSE 73; RESP 16; TEMP 36.4; O2SAT 99
== END 2025-04-14 08:45 | disposition short-term general hospital (02) ==
PROVIDERS: Emergency Provider Nurse Practitioner Family; PCP Family Medicine
DX: R10.32 Left lower quadrant pain (principal); E11.9 Type 2 diabetes mellitus without complications; I10 Essential (primary) hypertension; E03.9 Hypothyroidism, unspecified; E78.5 Hyperlipidemia, unspecified; D56.3 Thalassemia minor; E55.9 Vitamin D deficiency, unspecified; D64.9 Anemia, unspecified
CPT/HCPCS: 99212; G0463

== ENCOUNTER 2025-04-14 09:04 | Observation (INO) | payer MEDICARE, OTHER, SELFPAY ==
[2025-04-14] VITALS (14 sets, daily range): BP systolic 125–153; BP diastolic 65–89; PULSE 62–83; RESP 12–18; TEMP 36.2–36.9; O2SAT 94–100; BMI 30.2
--- NOTE | ~2025-04-14 | CT_ITS ---
CLINICAL INDICATION: Right lower quadrant pain COMPARISON: None. TECHNIQUE: Multiple contiguous axial images of the abdomen and pelvis were performed following the ad ministration of with 100 mL Omnipaque-350 intravenous contrast The dose-length product (DLP) was 465.76 mGy-cm. Automated exposure control and iterative reconstruction technique were employed. FINDINGS/OBSERVATIONS: Visualized lower thorax: Trace bibasilar atelectasis. The remainder of the bilateral lung bases are clear The heart is borderline enlarged, without pericardial effusion. Small hiatal hernia is present. Liver: The liver demonstrates homogeneous enhancement and is borderline enlarged measuring 19 cm in longitud inal dimension. Gallbladder and biliary system: The gallbladder is decompressed, and otherwise unremarkable. Pancreas: The pancreas enhances homogeneously without ductal dilatation. Spleen: The spleen enhances homogeneously and is not enlarged. Kidneys: The bilateral kidneys enhance symmetrically without hydronephrosis or renal calculi. Pararenal cyst within the left kidney. Adrenal glands: Unremarkable. Gastrointestinal tract: Colonic diverticulosis without surrounding inflammatory change. Appendix: The fluid-filled appendix is distended measuring 18 mm in caliber with a large appendicolith, and abimael rounding inflammatory change. No gross perforation is identified. No drainable fluid collection is identified (at this time). Vasculature: Unremarkable. Lymph nodes: No pathologically enlarged or morphologically suspicious lymph nodes within the retroperitoneum or at the root of the mesentery. Scattered nonpathologically enlarged lymph nodes within the mesentery of the right lower quadrant. Pelvic structures: The bladder is distended, and otherwise unremarkable. The prostate gland is enlarged, demonstrating mass effect on the base of the bladder. Body wall and musculoskeletal: No umbilical hernia. Age-appropriate degenerative disease within the lower thoracic and lumbosacral spine. IMPRESSION: Findings consistent with acute appendicitis, as detailed above. Reviewed, dictated and finalized at location A.
--- OUTSIDE RECORDS SUMMARY | 2025-04-14 09:06 | XMS_ITS | Patient Health Record ---
Author Organization [facility] Address [address] [place] [address] Care Team Providers Care Consulting Business Developer Name Role Phone Mary Valadez Primary Care Provider UnavailRICCI [place] Unavailable [phone] Allergies Allergen (clinical drug ingredient) Drug/Non Drug Allergy documented on EMR Reaction Allergy Type Onset Date Status acetaminophen / oxycodone Percocet Unknown Drug Allergy Active tramadol traMADol HCl Unknown Drug Allergy Acti ve Reason For Referral No Information Medications Medication SIG (Take, Route, Frequency, Duration) Notes Start Date End Date Status Hydrocortisone Acetate 25 MG 1 supposito ry Rectal Twice a day; Duration: 14 days Active Synthroid Active Zocor Active Golytely 236 GM as directed Orally 1 ; Duration: 1 days Active Folic Acid Active Social History Tobacco Use: Social History Observation Description Date Details (start date - stop date) Never Smoker NA - NA Tobacco Use/Smoking Question Answer Notes Are you a nonsmoker Alcohol Screen (Audit-C) Question Answer Notes Did you have a drink containing alcohol in the p ast year? No Points 0 Interpretation Negative Plan Of Treatment No Information Insurance Providers Payer Name Payer Address Payer Phone Subscriber Number Group Number Insured Name Patient Relationship to Insured Coverage Start Date Coverage End Date -[employer] [address] [place] [phone] [id number] Kush Zhu Self - patient is the insured Medical (General) History Medical History History ICD Code HLD hypothyrodism
--- OUTSIDE RECORDS SUMMARY | 2025-04-14 09:07 | XMS_ITS | Continuity of Care Document ---
Author Organization [facility] nters Address [address] [place] [address] Phone Care Team Providers Care Cigar Inspector Name Role Phone Jovanny Cook MD Unavailable [...] Copied on Encounter OV EST DETAILED [facility], [address], [place], [place], [address], [place] tel:[phone] [facility] Follow Up of GERD (telehealth) (chief complaint)Fol low Up of Hyperlipidemi a (telehealth) (chief complaint)Fol low Up of Hypertension (telehealth) (chief complaint) Pure hyperglyceri demiaEssenti al (primary) hypertension Chronic GERDArthriti s, wrist -202 0 Cook Jovanny. [address] [facility], [id number], [address], [place]. tel:[phone] OV EST DETAILED [facility], [address], [place], [place], [address], [place] tel:[phone] [facility] Follow Up of Hypertension (chief complaint)Fol low Up of Hyperlipidemi a (chief complaint)Fol low Up of GERD (chief complaint)Hea lth Maintenance (chief complaint) Essential hypertension Chronic GERDDietary counselingEx ercise counselingHy janina Palm s, wrist Dec- 0 Alisia Martin. [address], [id number] 0NS, [place], [place], [address], [place]. tel: [phone] [facility], [address], [place], [place], [address], [place] tel: [phone] [facility] hoarse voice (chief complaint)hea lth maintenance (chief complaint) Chronic hoarsenessBM I 38.0-38.9,ad ult 0 Joey Petty. [address], [id number] 0NS, [place], [place], [address], [place]. tel: [phone] [facility], [address], [place], [place], [address], [place] tel: [phone] [facility] Family Practice Follow Up of Hypertension (chief complaint)Fol low Up of Hyperlipidemi a (chief complaint)Fol low Up of GERD (chief complaint)Fol low Up of Erectile dysfunction (chief complaint)Hea lth Maintenance (chief complaint)Fat igue (chief complaint) Hypertension , benignPure hypercholest erolemia, unspecifiedC hronic GERDObesity, unspecified 9 Cookyenni Petty. [address], [id number] 0NS, [place], [place], [address], [place]. tel: [phone] [facility], [address], [place], [place], [address], [place] tel: [phone] [facility] Family Practice Follow Up of Labs (chief complaint)Hea lth Maintenance (chief complaint) Pure hypercholest erolemia, unspecifiedH ypertension, benignObesit y, unspecified 9 Cook Jovanny. [address], [id number] 0NS, [place], [place], [address], [place]. tel: [phone] [facility], [address], [place], [place], [address], tel: [phone] [facility] Family Practice Follow Up of hypertension (chief complaint)Fol low Up of ED (chief complaint)Fol low Up of GERD (chief complaint)Fol low Up of hyperlipidemi a (chief complaint)hea lth maintenance (chief complaint) Male erectile dysfunction, unspecifiedH ypertension, benignPure hyperglyceri demiaChronic GERDObesity, unspecified 9 [facility]. [address], [id number] 0NS, [place], [place], [address], [place]. tel: [phone] [facility], [address], [place], [place], [address], tel: [phone] [facility] Family Practice hypertension (chief complaint)hyp erlipidemia (chief complaint)Hea lt Maintenance (chief complaint) Hypertension , benignHypert riglyceridem iaChronic GERDErectile dysfunction, unspecified erectile dysfunction typeBody mass index (BMI) 37.0-37.9, adult [address] [facility] Alek. [address] [id number] 0NS, [place], [place], [address], [place]. tel: [phone] [facility], [address], [place], [place], [address], [place] tel: [phone] [facility] Family Practice Follow Up of hypertension (chief complaint)Fol low Up of erectile dysfunction (chief complaint)Fol low Up of hyperlipidemi a (chief complaint)Fol low Up of HSV (chief complaint)hea lt maintenance (chief complaint) Male erectile dysfunction, unspecifiedP ure hyperglyceri demiaEssenti al (primary) hypertension Obesity, unspecifiedC hronic GERD 9 [facility] Jovanny. [address], [id number] 0NS, [place], [place], [address], [place]. tel: [phone] [facility], [address], [place], [place], [address], [place] tel: [phone] [facility] Family Practice Follow Up of ER Visit (chief complaint)Hea lth Maintenance (chief complaint) ColitisBMI 38.0-38.9,ad ultDietary counselingHe alth educationPos itive depression screening 8 Tieri Patience. [address], [id number] 0NS, [place], [place], [address], [place]. tel: [phone] [facility], [address], [place], [place], [address], [place] tel: [phone] [facility] Family Practice Back pain (chief complaint)Fol low Up of Hypertension (chief complaint)Fol low Up of Hyperlipidemi a (chief complaint)Fol low Up of Erectile dysfunction (chief complaint)Hea lth Maintenance (chief complaint) Essential (primary) hypertension Pure hyperglyceri demiaMale erectile dysfunction, unspecifiedO besity, unspecified 8 Cook Jovanny. [address], [id number] 0NS, [place], [place], [address], [place]. tel: [phone] [facility], [address], [place], [place], [address], [place] tel: [phone] [facility] Family [facility] Follow Up of Hypertriglyce ridemia (chief complaint)Hea lth Maintenance (chief complaint) Iron deficiency anemia, unspecified iron deficiency anemia typeObesity, unspecifiedO ther hyperlipidem ia 8 Cook Jovanny. [address], [id number] 0NS, [place], [place], [address], [place]. tel: [phone] [facility], [address], [place], [place], [address], [place] tel: [phone] [facility] Family Practice Hypertension (follow up) (chief complaint)Fol low Up of Hyperglycerid emia (chief complaint)Hea lth Maintenance (chief complaint) Essential (primary) hypertension Pure hyperglyceri demiaMale erectile dysfunction, unspecifiedH erpes genitalis in menObesity, unspecified 8 [facility] Jovanny. [address], [id number] 0NS, [place], [place], [address], [place]. tel: [phone] [facility], [address], [place], [place], [address], [place] tel: [phone] [facility] Family Practice hypertension (chief complaint)hyp erlipidemia (chief complaint)Hea lth Maintenance (chief complaint) Essential (primary) hypertension Male erectile dysfunction, unspecifiedP ure hyperglyceri demiaObesity , unspecifiedH erpes genitalis in men Dec- 8 [facility] Jovanny. [address], [id number] 0NS, [place], [place], [address], [place]. tel: [phone] [facility], [address], [place], [place], [address], [place] tel: [phone] [facility] Family Practice hypertension (chief complaint)Hea lth Maintenance (chief complaint) Pure hyperglyceri demiaEssenti al (primary) hypertension Obesity, unspecified Sep- 7 Cook Jovanny. [address], [id number] 0NS, [place], [place], [address], [place]. tel: [phone] [facility], [address], [place], [place], [address], [place] tel: [phone] [facility] Urgent Care sore throat (chief complaint) Acute pharyngitis, unspecified etiology Sep-3 0 7 Kiranwilliam Alek. [address] [id number] 0NS, [place], [place], [address], [place]. tel: [phone] [facility], [address], [place], [place], [address], [place] tel: [phone] [facility] Family Practice Follow Up of Hyperlipidemi a (chief complaint)Fol low Up of Hypertension (chief complaint)Fol low Up of Edema (chief complaint)Hea lth Maintenance (chief complaint) Essential (primary) hypertension Pure hyperglyceri demiaObesity , unspecifiedE ncounter for screening and preventative care Jun- 7 Joey Petty. [address], [id number] 0NS, [place], [place], [address], [place]. tel: [phone] [facility], [address], [place], [place], [address], [place] tel: [phone] [facility] Family Practice HTN (chief complaint)Hea lth maintenance (chief complaint)hyp erlipidemia (chief complaint) Essential (primary) hypertension Pure hyperglyceri demiaObesity , unspecifiedH ealth educationCol on cancer screening 7 Shauna Bonds. [address], [id number] 0NS, [place], [place], [facility], [place]. tel: [phone] [facility], [address], [place], [place], [address], [place] tel: [phone] [facility] Family [facility] Hypertension (chief complaint)Col d symptoms (chief complaint) Allergic rhinitis, unspecifiedE ssential (primary) hypertension Pure hyperglyceri demiaHerpes genitalis in menObesity, unspecified 7 Joey Petty. [address], [id number] 0NS, [place], [place], [address], [place]. tel: [phone] [facility], [address], [place], [place], [address], [place] tel: [phone] [facility] Family Practice toe nail removal (chief complaint) Ingrown left big toenailContu alyssa of left great toe with damage to nail, init encntr 6 Joey Petty. [address], [id number] 0NS, [place], [place], [address], [place]. tel: [phone] [facility], [address], [place], [place], [address], [place] tel: [phone] [facility] Family Practice Follow Up of Paronychia of L great toe (chief complaint) Ingrown left big toenailHerpe s genitalis in menOther obesity due to excess calories 6 [facility]. [address], [id number] 0NS, [place], [place], [address], [place]. tel: [phone] [facility], [address], [place], [place], [address], [place] tel: [phone] [facility] Family Practice Follow Up of Paronychia of L great toe (chief complaint) Paronychia of great toe of left footEssentia l (primary) hypertension Other obesity due to excess calories 6 [facility]. [address], [id number] 0NS, [place], [place], [address], [place]. tel: [phone] [facility], [address], [place], [place], [address], [place] tel: [phone] [facility] Family Practice Hypertension (chief complaint)kallie t pain (chief complaint) Paronychia of great toe of left footEssentia l (primary) hypertension Pure hyperglyceri demiaUnspeci fied contact dermatitis, unspecified causeObesity , unspecified Jun- 6 [facility]. [address], [id number] 0NS, [place], [place], [address], [place]. tel: [phone] [facility], [address], [place], [place], [address], [place] tel: [phone] [facility] Family Practice Follow Up of Candidiasis of penis (chief complaint) Herpes genitalis in menEssential (primary) hypertension Obesity, unspecified 0 6 [facility]. [address], [id number] 0NS, [place], [place], [address], [place]. tel: [phone] [facility], [address], [place], [place], [address], [place] tel: [phone] [facility] Family Practice Follow Up of Hypertension (chief complaint)Fol low Up of ED (chief complaint)Fol low Up of Eczema (chief complaint) Essential (primary) hypertension Pure hyperglyceri demiaPedal edemaCandidi asis of penisObesity , unspecifiedV isit for suture removal Gee-0 6-201 6 [facility]. [address], [id number] 0NS, [place], [place], [address] [place] [address], [place]. tel: [phone] [facility], [address], [place], [place], [address], tel: [phone] [facility] Family Practice Follow Up of Hypertension (chief complaint)Fol low Up of Hyperglycerid emia (chief complaint)Fol low Up of ED (chief complaint)Fol low Up of Eczema (chief complaint) Essential (primary) hypertension Pure hyperglyceri demiaMale erectile dysfunction, unspecifiedU nspecified contact dermatitis, unspecified causeObesity , unspecified Mar-0 8-201 6 [facility]. [address], [id number] 0NS, [place], [place], [address] [place] [address], [place]. tel: [phone] [facility], [address], [place], [place], [address], [place] tel: [phone] [facility] Family Practice Hyperlipidemi a (follow up) med refill (chief complaint)Hyp ertension (follow up) med refill (chief complaint)ecz mendez cream triamcinolone refill (chief complaint)ED med refill (chief complaint) Essential (primary) hypertension Pure hyperglyceri demiaMale erectile dysfunction, unspecifiedO besity, unspecifiedU nspecified contact dermatitis, unspecified cause Dec-0 7-201 5 [facility]. [address], [id number] 0NS, [place], [place], [address], [place]. tel: [phone] OV [facility], [address], [place], [place], [address], [place] tel: [phone] [facility] Family Practice Hyperlipidemi a med refills (chief complaint)Hyp ertension (follow up) (chief complaint)tri amcinolone acetonide refills (chief complaint) Essential (primary) hypertension Pure hyperglyceri demiaUnspeci fied contact dermatitis, unspecified causeObesity , unspecified Joey Petty. [address], [id number] 0NS, [place], [place], [id number], [place]. tel: [phone] [facility], [address], [place], [place], [address], [place] tel: [phone] [facility] Family Practice HTN (chief complaint)HYP ERLIPIDEMIA (chief complaint)ECZ MENDEZ (chief complaint) Hypertension , benignHypert riglyceridem iaErectile dysfunctionE [facility] education 5 Tonio Bowman. [address], [id number] 0NS, [place], [place], [address], [place]. tel: [phone] [facility], [address], [place], [place], [address], [place] tel: [phone] [facility] Urgent Care Physical chauffer license. (chief complaint) GENERAL MEDICAL EXAMHealth examination of defined subpopulatio nsObesity 5 Betsy Shafer. [address], [id number] 0NS, [place], [place], [address], [place]. tel: [phone] OV [facility], [address], [place], [place], [address], [place] tel: [phone] [facility] Family Practice HTN (chief complaint)hyp ertriglycerid emia (chief complaint)ED (chief complaint) Hypertension , benignHypert riglyceridem iaErectile dysfunctionO besun[facility] 5 Joey Petty. [address], [id number] 0NS, [place], [place], [address], [place]. tel: [phone] PREVENTIVE TEST 40 TO 64 YRS OLD [facility], [address], [place], [place], [address], [place] tel: [phone] [facility] wellness exam (chief complaint) Well adult health checkHyperte nsion, benignHypert riglyceridem iaErectile dysfunctionE czemaObesity 4 [facility]. [address], [id number] 0NS, [place], [place], [address], [place]. tel: [phone] [facility], [address], [place], [place], [address], [place] tel: [phone] [facility] rash (chief complaint)Med refill (chief complaint) Screening for depressionHy pertension, benignHypert riglyceridem iaErectile dysfunctionE czemaObesity 4 [facility]. [address], [id number] 0NS, [place], [place], [address], [place]. tel: [phone] [facility], [address], [place], [place], [address], [place] tel: [phone] [facility] neck pain (chief complaint)hyp ertension (chief complaint)hyp erlipidemia (chief complaint) HYPERTENSION BENIGNHypert riglyceridem iaPain, neckObesityD ietary surveillance and counselingEx ercise counseling 4 [facility]. [address], [id number] 0NS, [place], [place], [address], [place]. tel: [phone] [facility], [address], [place], [place], [address], [place] tel: [phone] [facility] hypertension (chief complaint)hyp ertriglycerid emia (chief complaint)spencer matitis (chief complaint) HYPERTENSION BENIGNHypert riglyceridem iaObesityDie tary counselingEx ercise counselingCa ndidal intertrigoIn fluenza Vaccination 3 [facility]. [address], [id number] 0NS, [place], [place], [address], [place]. tel: [phone] PREVENTIVE TEST 40 TO 60 YRS OLD [facility], [address], [place], [place], [address], [place] tel: [phone] [facility] Family [facility] work physical (chief complaint) Healthcare maintenanceO besityDietar y counselingEx ercise counselingGE NERAL MEDICAL EXAM 3 No Information [facility], [address], [place], [place], [address], [place] tel: [phone] [facility] rash (chief complaint) DERMATITIS CONTACT NOS or EczemaObesit y 3 Tucker Christopher. [address], [id number] 0NS, [place], [address], [place]. tel: [phone] [facility], [address], [place], [place], [address], [place] tel: [phone] [facility] rash (chief complaint) Hypertension , benignHyperu ricemiaDerma titisObesity Hypertriglyc eridemia 3 [facility]. [address], [id number] 0NS, [place], [place], [address], [place]. tel: [phone] [facility], [address], [place], [place], [address], [place] tel: [phone] [facility] hypertension (chief complaint) Hypertriglyc eridemiaHYPE RTENSION BENIGNHyperu ricemiaObesi ty 3 [facility]. [address], [id number] 0NS, [place], [place], [address], [place]. tel: [phone] [facility], [address], [place], [place], [address], [place] tel: [phone] [facility] Practice hypertension (follow up) (chief complaint)ere ctile dysfunction (chief complaint)nikia at hand swelling (chief complaint) Screening for depressionIM POTENCE ORGANIC ORGANObesity 3 Joey Petty. [address], [id number] 0NS, [place], [place], [address], [place]. tel: [phone] [facility], [address], [place], [place], [address], [place] tel: [phone] [facility] Practice hypertension (follow up) (chief complaint) IMPOTENCE ORGANIC ORGAN 2 Joey Petty. [address], [id number] 0NS, [place], [place], [address], [place]. tel: [phone] [facility], [address], [place], [place], [address], [place] tel: [phone] [facility] hypertension (chief complaint) HYPERTENSION BENIGNObesit y 2 Cookyenni Kento. [address], [id number] 0NS, [place], [place], [address], [place]. tel: [phone] [facility], [address], [place], [place], [address], [place] tel: [phone] [facility] Nursing imunization (chief complaint) No Information 2 Joey Petty. [address], [id number] 0NS, [place], [place], [address], [place]. tel: [phone] [facility], [address], [place], [place], [address], [place] tel: [phone] [facility] Practice f/u herpes (chief complaint)hyp ertension (chief complaint) ALLERGIC RHINTIS 2 Cookyenni Petty. [address], [id number] 0NS, [place], [place], [address], [place]. tel:[phone] OV [facility], [address], [place], [place], [address], [place] tel:[phone] [facility] Family Practice f/u rash to to left side of chest, arm and back (chief complaint) Neuralgia, post-herpeti cHYPERTENSIO N BENIGNObesit y 2 Joey Arenasnando. [address], [id number] 0NS, [place], [place], [address], [place]. tel:[phone] OV [facility], [address], [place], [place], [address], [place] tel:[phone] [facility] shoulder pain (chief complaint) Herpes zoster without mention of complication HYPERTENSION BENIGNIMPOTE NCE ORGANIC ORGANATOPIC DERMATITUS-N OS 2 Betsy Shafer. [address], [id number] 0NS, [place], [place], [address], [place]. tel:[phone] OV [facility], [address], [place], [place], [address], [place] tel:[phone] [facility] hypertension (chief complaint)ere ctile dysfunction (chief complaint) HYPERTENSION BENIGNIMPOTE NCE ORGANIC ORGANObesity Other atopic dermatitis and related conditionsHY PERTENSION BENIGNObesit y 1 Joey Arenasnando. [address], [id number] 0NS, [place], [place], [address], [place]. tel:[phone] Family History Family Member Type Diagnosis Age [...] Record Payers Payer name Insurance type Covered alliance party ID Authoriza tion(s) [facility] CI [id number] [facility] CI [id number] [facility] CI [id number] Social History Type Description Quantity Date Captured [...] Goal Td/Tdap vaccine. Due on due Goal Colon Screening (fecal occult). Due on due Goal Well Adult Visit. Due on February due Goal Influenza vaccine. Due on No due Goal PHQ-9. Due on du e Goal HIV Ab. Due on d ue Goal Dental Exam. Due on due Goal Colonoscopy, fle xible; diagnostic. Due on due Goal Hep C Ab. Due on due Goal Td/Tdap vaccine. Due on due Goal Colon Screening (fecal occult). Due on due Goal HIV Ab. Due on d ue Goal PHQ-9. Due on du e Goal Dental Exam. Due on due Goal Well Adult Visit. Due on February due Goal Colonoscopy, fle xible; diagnostic. Due [...] Goal Td/Tdap vaccine. Due on due Goal Colon Screening [...] d ue Goal COPD SCREENING due Goal Well Adult Visit. Due on Jun due Goal Hep C Ab. Due on due Goal Colonoscopy, fle xible; diagnostic. Due on due Goal Colon screening. Due on due Goal BMP/CMP/LFT's. Due on due Goal Colon Screening (fecal occult). Due on due Goal PPD (TST). Due on due Goal Colon Screening (fecal occult). Due on due Goal Colonoscopy, fle xible; diagnostic. Due on due Goal Colon screening. Due on due Goal PPD (TST). Due on due Goal BMP/CMP/LFT's. Due on due Goal Hep C Ab. Due on due Goal PHQ-9. Due on du e Goal BMP/CMP/LFT's. Due on due Goal Influenza vaccine. Due on due Goal FOBT. Due on due Goal BMP. Due on due Goal Colon screening due Goal COPD SCREENING due Goal CMP. Due on due Goal Lipid panel. Due on 017 due Goal PHQ-9. Due on du e Goal BMP/CMP/LFT's. Due on due Goal FOBT. Due on due Goal Influenza vaccine. Due on due Goal CMP. Due on due Goal Lipid panel. Due on 015 due Goal FOBT. Due on due Goal Zoster vaccine due Goal Dental Exam. Due on 014 due Goal BMP/CMP/LFT's. Due on due Goal Td vaccine. Due [...] Flex Sigmoid. Due on 2014 due Goal Echocardiogram. Due on due Goal [...] due Goal Echocardiogram. Due on due Goal Shingles (Zoster). Due on due Goal FOBT. Due on due Goal HIV Ab. Due on d ue Goal DTAP. Due on due Goal Flex Sigmoid. Due on 2014 due Goal Depression scree nguyễn. Due on due Goal Abdominal Ultras ound. Due on due Goal Td vaccine. Due on 15 due Goal ECG. Due on due Goal Urinalysis due Goal Echocardiogram. Due on due Goal Dental Exam. Due on 015 due Goal Zoster (if over 60 yrs). Due on due Goal PHQ-9. Due on du e Goal Shingles (Zoster). Due on due Goal Td vaccine. Due on 14 due Goal Zoster (if over 60 yrs). Due on due Goal Zoster vaccine due Goal Echocardiogram. Due on due Goal ECG. Due on due Goal CMP. Due on due Goal Diabetes screening due Goal Urinalysis . Due on 014 due Goal Lipid panel. Due on 015 due Goal DTAP. Due on due Goal Flex Sigmoid. Due on 2013 due Goal HIV Ab. Due on d ue Goal FOBT. Due on due Goal Abdominal [...] Future Order: Lab Order CBC with Diff ([id number]), Sent on: Sent Future Order: Lab Order CMP ([id number]), S ent on: Sent Future Order: Lab Order LIPID PA TRISTA ([id number]), Sent on: Sent Future Order: Lab Order TSH ([id number]), S ent on: Sent Future Order: Lab Order URIC ACI D ([id number]), Sent on: Sent Future Order: Lab Order URINALYS IS ([id number]), Sent on: Sent Future Order: Lab Order CMP ([id number]), S ent on: Sent Future Order: Lab Order CBC w/di ff ([id number]), Sent on: Sent Future Order: Lab Order Lipid Pa trista ([id number]), Sent on: Sent Future Order: Lab Order TSH ([id number]), S ent on: Sent History Of Present Illness Encounter Date Complaint History Of Prese nt Illness Follow Up of Hypertension ([facility]) Risk factors include family history HTN, gout [...] yesterday. He had a colonoscopy done in [place] about one month ago that he says [...] CREAM Physical chauffer license. [employer] LICENSE, SEE FORM, NO ACTIVE C/O. HX [...] from heart disease Related to Exercise counseling Medication refilled for 3 months todayFollow [...] hours before bedtime. Related to Chronic GERD Today your HGB A1C w as- Goal is less than 7Things to do everyday:check blood sugar daily and record itcheck your feet for sores or rednesswear shoes and socks that fit welltake all of the medications as directedfollow a meal planbe activeThings that you need yearly:Lipid panelUrine albumin testRetinal eye exam-- Please make appointmentFollow up in 3 months Related to Dietary counseling for 3 weeks Related to Chron ic [...] in 3 months Related to Hypertension, benign Continue the same Me dication. Refill(s) given. Advised low-fat, low Cholesterol and low Carb diet. Encouraged to increase physical activity, aerobic exercise, running, walking or biking 30-60 minutes per day or as tolerated to maintain a healthy weight. Related to Hypertriglyceridemia Giving encouragement to exercise Related to Body [...] symptoms are not improving Related to Colitis Moderate-intensity a erobic exercise for 150 minutes [...] from heart disease Related to BMI 38.0-38.9,adult UTD Related to Healt h education Eat a variety of clarence sh fruits/vegetables, lean meats, whole grains, 2 servings of dairy/day.3 meals/day, 1-2 snacks/day.Drink at least 64 ounces of water daily.Limit caffeine, sugary drinks and foods, avoid fried fatty foods.Eat healthy portions- refer to www.choosemyplate.gov for guidance. Related to Dietary counseling refilled med (s) and follow-up in 3 [...] 3 months. Related to Essential (primary) hypertension med (s) refilled. Related to Mal e [...] 3 months. Related to Essential (primary) hypertension med (s) refilled. Related to Her pes genitalis in men med (s) refilled. Related to Mal e [...] of physical activity. Related to Pure hyperglyceridemia Laboratory results charito duffwed and discussed with the patient. Advised to [...] Related to Obesity, unspecified completed at [facility] [facility] per pt Related to Colon [...] unspecified Patient encouraged t o go on www.JoyTunesmyplate.gov for nutrition guidelines Related to Obesity, unspecified Adviced aerobic exer cises (such as [...] Pure hyperglyceridemia med (s) refilled. Related to Her pes [...] Paronychia of great toe of left foot med (s) refilled. Shasta kewarm (not hot) [...] Paronychia of great toe of left foot Took med few minutes ago, continue current [...] started Related to Herpes genitalis in men new med(s) started Related to [facility] [...] Related to Mal e erectile dysfunction, unspecified aerobic exercises (s uch as brisk [...] refill Viagra Related to Erect ile dysfunction Counseled regarding importance of weight loss. Related to Obesity he wanted a more aff ordable topical cream. Related to Eczema up to date. Related to Healt h [...] regimen of physical activity. Related to Hypertriglyceridemia for complete blood t ests and other related work-ups Related to Well adult health check Adequately controlle d, med (s) refilled and follow-up care in 3 months. adviced aspirin if not contraindicated,fish oil and vit. D and maintain low sodium diet (less than 2 gm per day) ,limit alcohol consumption to < 1 oz. per day. Related to Hypertension, benign med (s) refilled. Related to Ere ctile dysfunction Assessments Type Assessment Date assessment Pure hyperglyceridemia assessment Essential (primary) hypertension assessment Chronic GERD assessment Arthritis, wrist Patient Care Teams Name Effective Dates (start - stop) Status Members No Information
--- OUTSIDE RECORDS SUMMARY | 2025-04-14 09:19 | XMS_ITS | Continuity of Care Document ---
Author Organization [facility] nters Address [address] [place] [address] Phone Care Team Providers Care Supervisor Maintenance Name Role Phone Jovanny Cook MD Unavailable [...] Providers Copied on Encounter OV EST DETAILED [facility], [address], [place], [place], [id number], [place] tel:[phone] [facility] LS Follow Up of GERD (telehealth) (chief complaint)Fol low Up of Hyperlipidemi a (telehealth) (chief complaint)Fol low Up of Hypertension (telehealth) (chief complaint) Pure hyperglyceri demiaEssenti al (primary) hypertension Chronic GERDArthriti s, wrist -202 0 Cook Jovanny. [address] [facility], [id number], [id number], [place]. tel:[phone] OV EST DETAILED [facility], [address], [place], [place], [address], [place] tel:[phone] [facility] LS Follow Up of Hypertension (chief complaint)Fol low Up of Hyperlipidemi a (chief complaint)Fol low Up of GERD (chief complaint)Hea lth Maintenance (chief complaint) Essential hypertension Chronic GERDDietary counselingEx ercise counselingHy janina Palm s, wrist Dec- 0 Alisia Martin. [address], [id number] 0NS, [place], [place], [id number], [place]. tel: [phone] [facility], [address], [place], [place], [address], [place] tel: [phone] [facility] hoarse voice (chief complaint)hea lth maintenance (chief complaint) Chronic hoarsenessBM I 38.0-38.9,ad ult 0 Joey Petty. [address], [id number] 0NS, [place], [place], [id number], [place]. tel: [phone] [facility], [address], [place], [place], [id number], [place] tel: [phone] [facility] Family [facility] Follow Up of Hypertension (chief complaint)Fol low Up of Hyperlipidemi a (chief complaint)Fol low Up of GERD (chief complaint)Fol low Up of Erectile dysfunction (chief complaint)Hea lth Maintenance (chief complaint)Fat igue (chief complaint) Hypertension , benignPure hypercholest erolemia, unspecifiedC hronic GERDObesity, unspecified 9 Cookyenni Petty. [address], [id number] 0NS, [place], [place], [id number], [place]. tel: [phone] [facility], [address], [place], [place], [address], [place] tel: [phone] [facility] Family [facility] Follow Up of Labs (chief complaint)Hea lth Maintenance (chief complaint) Pure hypercholest erolemia, unspecifiedH ypertension, benignObesit y, unspecified 9 Cook Jovanny. [address], [id number] 0NS, [place], [place], [id number], [place]. tel: [phone] [facility], [address], [place], [place], [address], tel: [phone] [facility] Family [facility] Follow Up of hypertension (chief complaint)Fol low Up of ED (chief complaint)Fol low Up of GERD (chief complaint)Fol low Up of hyperlipidemi a (chief complaint)hea lth maintenance (chief complaint) Male erectile dysfunction, unspecifiedH ypertension, benignPure hyperglyceri demiaChronic GERDObesity, unspecified 9 [facility]. [address], [id number] 0NS, [place], [place], [id number], [place]. tel: [phone] [facility], [address], [place], [place], [address], tel: [phone] [facility] Family [facility] hypertension (chief complaint)hyp erlipidemia (chief complaint)Hea lt Maintenance (chief complaint) Hypertension , benignHypert riglyceridem iaChronic GERDErectile dysfunction, unspecified erectile dysfunction typeBody mass index (BMI) 37.0-37.9, adult 9 [facility] Alek. [address] [id number] 0NS, [place], [place], [address], [place]. tel: [phone] [facility], [address], [place], [place], [address], [place] tel: [phone] [facility] Follow Up of hypertension (chief complaint)Fol low Up of erectile dysfunction (chief complaint)Fol low Up of hyperlipidemi a (chief complaint)Fol low Up of HSV (chief complaint)hea lt maintenance (chief complaint) Male erectile dysfunction, unspecifiedP ure hyperglyceri demiaEssenti al (primary) hypertension Obesity, unspecifiedC hronic GERD 9 [facility] Jovanny. [address], [id number] 0NS, [place], [place], [address], [place]. tel: [phone] [facility], [address], [place], [place], [id number], [place] tel: [phone] [facility] Follow Up of ER Visit (chief complaint)Hea lth Maintenance (chief complaint) ColitisBMI 38.0-38.9,ad ultDietary counselingHe alth educationPos itive depression screening 8 Tieri Patience. [address], [id number] 0NS, [place], [place], [id number], [place]. tel: [phone] [facility], [address], [place], [place], [address], [place] tel: [phone] [facility] Back pain (chief complaint)Fol low Up of Hypertension (chief complaint)Fol low Up of Hyperlipidemi a (chief complaint)Fol low Up of Erectile dysfunction (chief complaint)Hea lth Maintenance (chief complaint) Essential (primary) hypertension Pure hyperglyceri demiaMale erectile dysfunction, unspecifiedO besity, unspecified 8 Cook Jovanny. [address], [id number] 0NS, [place], [place], [id number], [place]. tel: [phone] [facility], [address], [place], [place], [address], [place] tel: [phone] [facility] Follow Up of Hypertriglyce ridemia (chief complaint)Hea lth Maintenance (chief complaint) Iron deficiency anemia, unspecified iron deficiency anemia typeObesity, unspecifiedO ther hyperlipidem ia 8 Cook Jovanny. [address], [id number] 0NS, [place], [place], [address], [place]. tel: [phone] [facility], [address], [place], [place], [address], [place] tel: [phone] [facility] Hypertension (follow up) (chief complaint)Fol low Up of Hyperglycerid emia (chief complaint)Hea lth Maintenance (chief complaint) Essential (primary) hypertension Pure hyperglyceri demiaMale erectile dysfunction, unspecifiedH erpes genitalis in menObesity, unspecified 8 [facility] Jovanny. [address], [id number] 0NS, [place], [place], [address], [place]. tel: [phone] [facility], [address], [place], [place], [address], [place] tel: [phone] [facility] hypertension (chief complaint)hyp erlipidemia (chief complaint)Hea lth Maintenance (chief complaint) Essential (primary) hypertension Male erectile dysfunction, unspecifiedP ure hyperglyceri demiaObesity , unspecifiedH erpes genitalis in men Dec- 8 [facility] Jovanny. [address], [id number] 0NS, [place], [place], [address], [place]. tel: [phone] [facility], [address], [place], [place], [address], [place] tel: [phone] [facility] hypertension (chief complaint)Hea lth Maintenance (chief complaint) Pure hyperglyceri demiaEssenti al (primary) hypertension Obesity, unspecified Sep- 7 Cook Jovanny. [address], [id number] 0NS, [place], [place], [address], [place]. tel: [phone] [facility], [address], [place], [place], [address], [place] tel: [phone] [facility] Urgent Care sore throat (chief complaint) Acute pharyngitis, unspecified etiology Sep-3 0 7 Kiranwilliam Alek. [address] [id number] 0NS, [place], [place], [address], [place]. tel: [phone] [facility], [address], [place], [place], [address], [place] tel: [phone] [facility] Follow Up of Hyperlipidemi a (chief complaint)Fol low Up of Hypertension (chief complaint)Fol low Up of Edema (chief complaint)Hea lth Maintenance (chief complaint) Essential (primary) hypertension Pure hyperglyceri demiaObesity , unspecifiedE ncounter for screening and preventative care Jun- 7 Joey Petty. [address], [id number] 0NS, [place], [place], [address], [place]. tel: [phone] [facility], [address], [place], [place], [address], [place] tel: [phone] [facility] HTN (chief complaint)Hea lth maintenance (chief complaint)hyp erlipidemia (chief complaint) Essential (primary) hypertension Pure hyperglyceri demiaObesity , unspecifiedH ealth educationCol on cancer screening 7 Shauna Bonds. [address], [id number] 0NS, [place], [place], [facility], [place]. tel: [phone] [facility], [address], [place], [address], [place] tel: [phone] [facility] Hypertension (chief complaint)Col d symptoms (chief complaint) Allergic rhinitis, unspecifiedE ssential (primary) hypertension Pure hyperglyceri demiaHerpes genitalis in menObesity, unspecified 7 Joey Petty. [address], [id number] 0NS, [place], [place], [address], [place]. tel: [phone] [facility], [address], [place], [place], [address], [place] tel: [phone] [facility] Family [facility] toe nail removal (chief complaint) Ingrown left big toenailContu alyssa of left great toe with damage to nail, init encntr 6 Joey Petty. [address], [id number] 0NS, [place], [place], [address], [place]. tel: [phone] [facility], [address], [place], [place], [address], [place] tel: [phone] [facility] Follow Up of Paronychia of L great toe (chief complaint) Ingrown left big toenailHerpe s genitalis in menOther obesity due to excess calories 6 [facility]. [address], [id number] 0NS, [place], [place], [address], [place]. tel: [phone] [facility], [address], [place], [place], [address], [place] tel: [phone] [facility] Follow Up of Paronychia of L great toe (chief complaint) Paronychia of great toe of left footEssentia l (primary) hypertension Other obesity due to excess calories 6 [facility]. [address], [id number] 0NS, [place], [place], [address], [place]. tel: [phone] [facility], [address], [place], [place], [address], [place] tel: [phone] [facility] Hypertension (chief complaint)kallie t pain (chief complaint) Paronychia of great toe of left footEssentia l (primary) hypertension Pure hyperglyceri demiaUnspeci fied contact dermatitis, unspecified causeObesity , unspecified Jun- 6 [facility]. [address], [id number] 0NS, [place], [place], [address], [place]. tel: [phone] [facility], [address], [place], [place], [address], [place] tel: [phone] [facility] Follow Up of Candidiasis of penis (chief complaint) Herpes genitalis in menEssential (primary) hypertension Obesity, unspecified 0 6 [facility]. [address], [id number] 0NS, [place], [place], [address], [place]. tel: [phone] [facility], [address], [place], [place], [address], [place] tel: [phone] [facility] Follow Up of Hypertension (chief complaint)Fol low Up of ED (chief complaint)Fol low Up of Eczema (chief complaint) Essential (primary) hypertension Pure hyperglyceri demiaPedal edemaCandidi asis of penisObesity , unspecifiedV isit for suture removal Gee-0 6-201 6 [facility]. [address], [id number] 0NS, [place], [place], [address] [place] [address], [place]. tel: [phone] [facility], [address], [place], [place], [address], tel: [phone] [facility] Follow Up of Hypertension (chief complaint)Fol low Up of Hyperglycerid emia (chief complaint)Fol low Up of ED (chief complaint)Fol low Up of Eczema (chief complaint) Essential (primary) hypertension Pure hyperglyceri demiaMale erectile dysfunction, unspecifiedU nspecified contact dermatitis, unspecified causeObesity , unspecified Mar-0 8-201 6 [facility]. [address], [id number] 0NS, [place], [address] [place] [address], [place]. tel: [phone] [facility], [address], [place], [place], [address], [place] tel: [phone] [facility] Hyperlipidemi a (follow up) med refill (chief complaint)Hyp ertension (follow up) med refill (chief complaint)ecz mendez cream triamcinolone refill (chief complaint)ED med refill (chief complaint) Essential (primary) hypertension Pure hyperglyceri demiaMale erectile dysfunction, unspecifiedO besity, unspecifiedU nspecified contact dermatitis, unspecified cause Dec-0 7-201 5 [facility]. [address], [id number] 0NS, [place], [place], [id number], [place]. tel: [phone] [facility], [address], [place], [place], [address], [place] tel: [phone] [facility] Family [facility] Hyperlipidemi a med refills (chief complaint)Hyp ertension (follow up) (chief complaint)tri amcinolone acetonide refills (chief complaint) Essential (primary) hypertension Pure hyperglyceri demiaUnspeci fied contact dermatitis, unspecified causeObesity , unspecified Joey Petty. [address], [id number] 0NS, [place], [place], [address], [place]. tel: [phone] [facility], [address], [place], [place], [address], [place] tel: [phone] [facility] HTN (chief complaint)HYP ERLIPIDEMIA (chief complaint)ECZ MENDEZ (chief complaint) Hypertension , benignHypert riglyceridem iaErectile dysfunctionE [facility] Health education 5 Tonio Bowman. [address], [id number] 0NS, [place], [place], [address], [place]. 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 [address], [id number] 0NS, [place], [place], [id number], [place]. tel: [phone] [facility], [address], [place], [place], [address], [place] tel: [phone] [facility] Family [facility] HTN (chief complaint)hyp ertriglycerid emia (chief complaint)ED (chief complaint) Hypertension , benignHypert riglyceridem iaErectile dysfunctionO [facility] 5 Joey Petty. [address], [id number] 0NS, [place], [place], [address], [place]. tel: [phone] PREVENTIVE TEST 40 TO 64 YRS OLD [facility], [address], [place], [place], [address], [place] tel: [phone] [facility] wellness exam (chief complaint) Well adult health checkHyperte nsion, benignHypert riglyceridem iaErectile dysfunctionE czemaObesity 4 [facility]. [address], [id number] 0NS, [place], [place], [address], [place]. tel: [phone] [facility], [address], [place], [place], [address], [place] tel: [phone] [facility] rash (chief complaint)Med refill (chief complaint) Screening for depressionHy pertension, benignHypert riglyceridem iaErectile dysfunctionE czemaObesity 4 [facility]. [address], [id number] 0NS, [place], [place], [address], [place]. tel: [phone] [facility], [address], [place], [place], [address], [place] tel: [phone] [facility] neck pain (chief complaint)hyp ertension (chief complaint)hyp erlipidemia (chief complaint) HYPERTENSION BENIGNHypert riglyceridem iaPain, neckObesityD ietary surveillance and counselingEx ercise counseling 4 [facility]. [address], [id number] 0NS, [place], [place], [address], [place]. tel: [phone] [facility], [address], [place], [place], [address], [place] tel: [phone] [facility] hypertension (chief complaint)hyp ertriglycerid emia (chief complaint)spencer matitis (chief complaint) HYPERTENSION BENIGNHypert riglyceridem iaObesityDie tary counselingEx ercise counselingCa ndidal intertrigoIn fluenza Vaccination 3 [facility]. [address], [id number] 0NS, [place], [place], [address], [place]. tel: [phone] PREVENTIVE TEST 40 TO 60 YRS OLD [facility], [address], [place], [address], [place] tel: [phone] [facility] work physical (chief complaint) Healthcare maintenanceO besityDietar y counselingEx ercise counselingGE NERAL MEDICAL EXAM 3 No Information [facility], [address], [place], [address], [place] tel: [phone] [facility] rash (chief complaint) DERMATITIS CONTACT NOS or EczemaObesit y 3 Tucker Christopher. [address], [id number] 0NS, [place], [address], [place]. tel: [phone] [facility], [address], [place], [address], [place] tel: [phone] [facility] rash (chief complaint) Hypertension , benignHyperu ricemiaDerma titisObesity Hypertriglyc eridemia 3 [facility]. [address], [id number] 0NS, [place], [place], [address], [place]. tel: [phone] [facility], [address], [place], [place], [address], [place] tel: [phone] [facility] hypertension (chief complaint) Hypertriglyc eridemiaHYPE RTENSION BENIGNHyperu ricemiaObesi ty 3 [facility]. [address], [id number] 0NS, [place], [place], [address], [place]. tel: [phone] [facility], [address], [place], [place], [address], [place] tel: [phone] [facility] Practice hypertension (follow up) (chief complaint)ere ctile dysfunction (chief complaint)nikia at hand swelling (chief complaint) Screening for depressionIM POTENCE ORGANIC ORGANObesity 3 Joey Petty. [address], [id number] 0NS, [place], [place], [address], [place]. tel: [phone] [facility], [address], [place], [address], [place] tel: [phone] [facility] Practice hypertension (follow up) (chief complaint) IMPOTENCE ORGANIC ORGAN 2 Joey Petty. [address], [id number] 0NS, [place], [place], [address], [place]. tel: [phone] [facility], [address], [place], [place], [address], [place] tel: [phone] [facility] hypertension (chief complaint) HYPERTENSION BENIGNObesit y 2 Cookyenni Kento. [address], [id number] 0NS, [place], [place], [address], [place]. tel: [phone] [facility], [address], [place], [place], [address], [place] tel: [phone] [facility] Nursing imunization (chief complaint) No Information 2 Joey Petty. [address], [id number] 0NS, [place], [place], [address], [place]. tel: [phone] [facility], [address], [place], [address], [place] tel: [phone] [facility] Practice f/u herpes (chief complaint)hyp ertension (chief complaint) ALLERGIC RHINTIS 2 Cookyenni Petty. [address], [id number] 0NS, [place], [place], [address], [place]. tel:[phone] [facility], [address], [place], [place], [address], [place] tel:[phone] [facility] Family Practice f/u rash to to left side of chest, arm and back (chief complaint) Neuralgia, post-herpeti cHYPERTENSIO N BENIGNObesit y 2 Joey Arenasnando. [address], [id number] 0NS, [place], [place], [address], [place]. tel:[phone] [facility], [address], [place], [place], [address], [place] tel:[phone] [facility] shoulder pain (chief complaint) Herpes zoster without mention of complication HYPERTENSION BENIGNIMPOTE NCE ORGANIC ORGANATOPIC DERMATITUS-N OS 2 Betsy Shafer. [address], [id number] 0NS, [place], [place], [address], [place]. tel:[phone] [facility], [address], [place], [place], [address], [place] tel:[phone] [facility] hypertension (chief complaint)ere ctile dysfunction (chief complaint) HYPERTENSION BENIGNIMPOTE NCE ORGANIC ORGANObesity Other atopic dermatitis and related conditionsHY PERTENSION BENIGNObesit y 1 Joey Arenasnando. [address], [id number] 0NS, [place], [place], [address], [place]. tel:[phone] Family History Family Member Type Diagnosis Age [...] Record Payers Payer name Insurance type Covered constitution party ID Authoriza tion(s) [facility] CI [id number] [facility] CI [id number] [facility] CI [id number] Social History Type Description Quantity Date Captured [...] vaccine due Goal Influenza vaccine. Due on No [...] PPD (TST). Due on due Goal Colon screening. Due [...] Lipid panel. Due on 015 due Goal BMP/CMP/LFT's. Due on due Goal Dental Exam. Due on 014 due Goal Zoster vaccine due Goal FOBT. Due on due Goal Td [...] ue Goal FOBT. Due on due Goal Shingles (Zoster). Due on due Goal Zoster (if over 60 yrs). Due on due Goal Dental Exam. Due on 015 due Goal Echocardiogram. Due on due Goal Urinalysis due Goal ECG. Due on due Goal FOBT. Due on due Goal Abdominal [...] Lipid panel. Due on 015 due Goal Abdominal Ultras ound. Due on due Goal ECG. Due on due Goal Echocardiogram. Due on due Goal Lipid [...] Future Order: Lab Order CBC with Diff ([id number]), Sent on: Sent Future Order: Lab Order CMP ([id number]), S ent on: Sent Future Order: Lab Order LIPID PA TRISTA ([id number]), Sent on: Sent Future Order: Lab Order TSH ([id number]), S ent on: Sent Future Order: Lab Order URIC ACI D ([id number]), Sent on: Sent Future Order: Lab Order URINALYS IS ([id number]), Sent on: Sent Future Order: Lab Order CMP ([id number]), S ent on: Sent Future Order: Lab Order CBC w/di ff ([id number]), Sent on: Sent Future Order: Lab Order Lipid Pa trista ([id number]), Sent on: Sent Future Order: Lab Order TSH ([id number]), S ent on: Sent History Of Present Illness Encounter Date Complaint History Of Prese nt Illness Follow Up of Hypertension ([facility]are [facility]) Risk factors include family history HTN, [...] yesterday. He had a colonoscopy done in [place] about one month ago that he says [...] CREAM Physical chauffer license. [employer], SEE FORM, NO ACTIVE C/O. HX [...] and spicy foods. Related to Chronic GERD med (s) refilled. Related to Mal e erectile dysfunction, unspecified refilled med (s) and follow-up in [...] processed foods) adviced Related to Obesity, unspecified Pt declines need for referral, symptoms [...] unspecified Patient encouraged t o go on www.[employer].gov for nutrition guidelines Related to Obesity, unspecified [...]
--- NOTE | 2025-04-14 09:29 | PC.NURSE ---
Pt. educated that a urine sample is needed. Pt. states he does not have to urinate at this time. Pt. given a urine cup.
[2025-04-14 09:31] LABS: Hematocrit 41.2 % (42.0-52.0); Hemoglobin 12.3 g/dL (14.0-18.0); Immature Granulocyte Percent A 0.3 % (0-0.5); Lymphocytes Absolute Auto 2.21 K/mm3 (0.9-3.2); Mean Corpuscular HGB Conc 29.9 g/dl (32-36); Mean Corpuscular Hemoglobin 22.4 pg (26-34); Mean Corpuscular Volume 75.0 fl (80-100); Nucleated Red Blood Cells Absolute Auto 0.000 K/mm3 (0.0-0.012); Nucleated Red Blood Cells Perc 0.0 % (0.0-0.2); Platelet Count Result 293 k/mm3 (150-375); Red Blood Count 5.49 M/mm3 (4.6-6.20); White Blood Count 10.8 K/mm3 (4.5-10.0)
[2025-04-14 09:44] LABS: Alanine Aminotransferase 19 U/L (6-50); Albumin Level 4.5 g/dL (3.5-5.1); Alkaline Phosphatase 74 U/L (38-126); Anion Gap 11 mmol/L (4-12); Aspartate Amino Transferase 31 U/L (17-59); Bilirubin,Total 0.5 mg/dL (0.2-1.3); Blood Urea Nitrogen 13 mg/dL (9-20); Calcium 9.2 mg/dL (8.4-10.2); Carbon Dioxide 24 mmol/L (22-30); Chloride 104 mmol/L (98-107); Estimated CRCL calculation 84 ml/min; Estimated Glomerular Filt Rate > 60; Glucose 105 mg/dL (65-110); Lipase 62 U/L (23-300); Potassium 4.0 mmol/L (3.4-5.0); Sodium 139 mmol/L (137-145); Total Protein 9.1 g/dL (6.3-8.2)
[2025-04-14 09:50] LABS: Hypochromasia 1+; Ovalocytes 1+
[2025-04-14 09:51] LABS: Schistocytes None Seen
[2025-04-14] MEDS: SODIUM CHLORIDE 0.9% IV 1,000 ML 999 ML IV CONT (10:01)
--- NOTE | 2025-04-14 10:50 | ED_ITS ---
HPI - General Adult General Chief complaint: Abdominal Pain Stated complaint: abdominal pain Time Seen by Provider: 04/14/25 09:11 History of Present Illness HPI narrative: Patient is a 70-year-old gentleman presents emergency department chief complaint of right lower quadrant pain. Patient reports over the last several days he has been having discomfort in the right lower quadrant reports a got worse today reports that is worse whenever he has bumps denies fever denies change in appetite the patient states he went to urgent care and they were concerned for possible appendicitis symptoms the emergency department. Related Data Allergies Allergy/AdvReac Type Severity Reaction Status Date / Time acetaminophen (From Percocet) Allergy Severe Dizziness Verified 04/14/25 15:06 oxycodone (From Percocet) Allergy Severe Dizziness Verified 04/14/25 15:06 tramadol AdvReac Severe Dizziness Verified 04/14/25 15:06 Review of Systems 2 Review of Systems: A 10 system review of systems was completed on the patient and is negative except for what is stated in the HPI. Nursing and ancillary documentation was reviewed. [facility] Past Medical History Medical History (Updated 04/14/25 @ 12:37 by Trista Bustamante CRNA) Anemia Type 2 diabetes mellitus without complications Borderline, diet controlled. pt denies diabetes Bilateral tinnitus Periodontal abscess Impingement of left shoulder Rotator cuff tendinitis Cervical radiculopathy Prediabetes Essential (primary) hypertension Dental root implant present (~02/2023) Erectile dysfunction Vitamin D deficiency Thalassemia alpha carrier Environmental allergies Hypothyroidism Hyperlipemia Surgical History Surgical History History of wisdom tooth extraction (~1994) Family History Family History Mother Lymphoma Sibling Breast cancer Hypertension Social History Social History Smoking status: Never smoker Alcohol intake: former Substance use: never Substance use type: does not use Do You Feel Safe in your Home?: Yes Lack of Transportation: No Lack of Food: Never True Current Housing: I Have Housing Concerned About Future Housing: No Difficulty Paying Gas/Electric Bills: No Difficulty Paying for Meds: No Currently Unemployed: No Education: High School Diploma/GED Difficulty w/ Childcare or Family Care: No Living arrangements: with family Occupation/Education: retired Gender identity (if verbalized by the patient): Male Spiritual care concerns: Yes (Roman Catholic) Agree to blood products: Yes Exam 2 Narrative: GENERAL: Well-appearing, well-nourished, and in no acute distress. HEAD: Normocephalic, atraumatic. EYES: PERRLA and EOMI. ENT: Nares clear, no rhinorrhea or epistaxis. Mucous membranes moist. NECK: Supple. CHEST: Clear to auscultation. No respiratory distress. HEART: Regular rate and rhythm. No murmur heard. Normal peripheral pulses. ABDOMEN: Soft, tenderness to palpation the right lower quadrant, nondistended, normal active bowel sounds. EXTREMITIES: Normal range of motion. No edema. SKIN: Warm, dry, no rash. NEURO: No focal deficits. Alert and oriented x3. PSYCH: Normal mood and affect. Course Vital Signs Vital signs: Vital Signs Temperature 36.9 C 04/14/25 09:07 Pulse Rate 66 04/14/25 09:07 Respiratory Rate 16 04/14/25 09:07 Blood Pressure 153/76 H 04/14/25 09:07 Pulse Oximetry 99 04/14/25 09:07 Oxygen Delivery Room Air 04/14/25 09:07 Temperature 36.4 C L 04/14/25 15:45 Pulse Rate 72 04/14/25 15:05 Respiratory Rate 16 04/14/25 15:05 Blood Pressure 140/72 04/14/25 15:05 Pulse Oximetry 97 04/14/25 15:05 Oxygen Delivery Room Air 04/14/25 14:28 Oxygen Flow Rate 8 04/14/25 13:58 Medical Decision Making [facility] Narrative Medical decision making narrative: Differential diagnosis includes intra-abdominal infection, diverticulitis, colitis, appendicitis, Laboratory studies were obtained on the patient showed white count 10.8 electrolytes are within normal limits lipase was normal CT scan shows evidence of acute appendicitis Vital Signs Vital Signs: Vital Signs Temperature 36.9 C 04/14/25 09:07 Pulse Rate 66 04/14/25 09:07 Respiratory Rate 16 04/14/25 09:07 Blood Pressure 153/76 H 04/14/25 09:07 Pulse Oximetry 99 04/14/25 09:07 Oxygen Delivery Room Air 04/14/25 09:07 Temperature 36.4 C L 04/14/25 15:45 Pulse Rate 72 04/14/25 15:05 Respiratory Rate 16 04/14/25 15:05 Blood Pressure 140/72 04/14/25 15:05 Pulse Oximetry 97 04/14/25 15:05 Oxygen Delivery Room Air 04/14/25 14:28 Oxygen Flow Rate 8 04/14/25 13:58 Lab Data 04/14/25 09:26 04/14/25 09:26 Labs: Lab Results 04/14/25 04/14/25 Range/Units 09:26 11:41 WBC 10.8 H (4.5-10.0) K/mm3 RBC 5.49 (4.6-6.20) M/mm3 Hgb 12.3 L (14.0-18.0) g/dL Hct 41.2 L (42.0-52.0) % MCV 75.0 L (80-100) fl MCH 22.4 L (26-34) pg MCHC 29.9 L (32-36) g/dl RDW 15.3 H (11.5-14.5) % Plt Count 293 (150-375) k/mm3 MPV 9.6 (7.4-10.4) fl Immature Gran % (Auto) 0.3 (0-0.5) % Neut % (Auto) 71.3 (45.5-73.1) % Lymph % (Auto) 20.5 (18.3-44.2) % [place] % (Auto) 6.8 (2.6-8.5) % Eos % (Auto) 0.6 (0-4.4) % Baso % (Auto) 0.5 (0.2-1.2) % Lymph # (Auto) 2.21 (0.9-3.2) K/mm3 [place] # (Auto) 0.7 H (0.1-0.6) K/mm3 Eos # (Auto) 0.1 (0-0.3) K/mm3 Baso # (Auto) 0.1 (0.0-0.1) K/mm3 Abs Immat Gran (auto) 0.03 (0.00-0.031) K/mm3 Absolute Neuts (auto) 7.7 H (1.3-6.7) K/mm3 Absolute Nucleated RBC 0.000 (0.0-0.012) K/mm3 Band Neutrophils % Not Reportable Nucleated RBC % 0.0 (0.0-0.2) % Platelet Estimate Adequate (Adequate) Hypochromasia 1+ Ovalocytes 1+ Schistocytes None seen Sodium 139 (137-145) mmol/L Potassium 4.0 (3.4-5.0) mmol/L Chloride 104 (98-107) mmol/L Carbon Dioxide 24 (22-30) mmol/L Anion Gap 11 (4-12) mmol/L BUN 13 (9-20) mg/dL Creatinine 0.89 (0.7-1.3) mg/dL Estim Creat Clear Calc 84 ml/min Estimated GFR > 60 (59 - ) Glucose 105 (65-110) mg/dL Calcium 9.2 (8.4-10.2) mg/dL Total Bilirubin 0.5 (0.2-1.3) mg/dL AST 31 (17-59) U/L ALT 19 (6-50) U/L Alkaline Phosphatase 74 (38-126) U/L Total Protein 9.1 H (6.3-8.2) g/dL Albumin 4.5 (3.5-5.1) g/dL Lipase 62 (23-300) U/L Urine Color Yellow (Yellow) Urine Appearance Clear (Clear) Urine pH 6.5 (5.0-9.0) Ur Specific [place] > 1.045 H (1.001-1.035) Urine Protein Negative (Negative) mg/dL Urine Glucose (UA) Negative (Negative) mg/dL Urine Ketones Negative (Negative) mg/dL Ur Blood (Man) Negative (Negative) Urine Nitrate Negative (Negative) Urine Bilirubin Negative (Negative) Urine Urobilinogen 1.0 (<2.0) mg/dL Leukocyte Esterase Rfl Negative (Negative) [facility] Discharge Plan Discharge Clinical Impression: Abdominal pain, Acute appendicitis Patient Disposition: Still a Patient Condition: Stable Time of Disposition: 11:06
--- NOTE | 2025-04-14 11:07 | ECG_ITS ---
Test Date: 2025-04-14 11:13:07 Measurements Intervals [place] Rate: 62 P: 67 [place]: 170 QRS: 72 QRSD: 85 T: 38 QT: 385 QTc: 392 Interpretive Statements SINUS RHYTHM No previous ECG available for comparison Electronically Signed On 04-14-2025 14:09:41 CDT by Bunny Morin M.D.
--- OUTSIDE RECORDS SUMMARY | 2025-04-14 11:14 | XMS_ITS | Continuity of Care Document ---
Author Organization [facility] nters Address [address] [place] [address] Phone Care Team Providers Care Enrollment Consultant Name Role Phone Jovanny Cook MD Unavailable [...] on Encounter OV EST DETAILED [facility], [address], [place], [place], [id number], [place] tel:[phone] [facility] Follow Up of GERD (telehealth) (chief complaint)Fol low Up of Hyperlipidemi a (telehealth) (chief complaint)Fol low Up of Hypertension (telehealth) (chief complaint) Pure hyperglyceri demiaEssenti al (primary) hypertension Chronic GERDArthriti s, wrist -202 0 Cook Jovanny. [address], [id number], [id number], [place]. tel:[phone] OV EST DETAILED [facility], [address], [place], [place], [address], [place] tel:[phone] [facility] Follow Up of Hypertension (chief complaint)Fol low Up of Hyperlipidemi a (chief complaint)Fol low Up of GERD (chief complaint)Hea lth Maintenance (chief complaint) Essential hypertension Chronic GERDDietary counselingEx ercise counselingHy janina Palm s, wrist Dec- 0 Alisia Martin. [address], [id number] 0NS, [place], [place], [address], [place]. tel: [phone] [facility], [address], [place], [place], [address], [place] tel: [phone] [facility] hoarse voice (chief complaint)hea lth maintenance (chief complaint) Chronic hoarsenessBM I 38.0-38.9,ad ult 0 Joey Petty. [address], [id number] 0NS, [place], [place], [address], [place]. tel: [phone] [facility], [address], [place], [place], [address], [place] tel: [phone] [facility] Follow Up of Hypertension (chief complaint)Fol low Up of Hyperlipidemi a (chief complaint)Fol low Up of GERD (chief complaint)Fol low Up of Erectile dysfunction (chief complaint)Hea lth Maintenance (chief complaint)Fat igue (chief complaint) Hypertension , benignPure hypercholest erolemia, unspecifiedC hronic GERDObesity, unspecified 9 Cookyenni Petty. [address], [id number] 0NS, [place], [place], [address], [place]. tel: [phone] [facility], [address], [place], [place], [address], [place] tel: [phone] [facility] Follow Up of Labs (chief complaint)Hea lth Maintenance (chief complaint) Pure hypercholest erolemia, unspecifiedH ypertension, benignObesit y, unspecified 9 Cook Jovanny. [address], [id number] 0NS, [place], [place], [id number], [place]. tel: [phone] [facility], [address], [place], [place], [address], tel: [phone] [facility] Follow Up of hypertension (chief complaint)Fol low Up of ED (chief complaint)Fol low Up of GERD (chief complaint)Fol low Up of hyperlipidemi a (chief complaint)hea lth maintenance (chief complaint) Male erectile dysfunction, unspecifiedH ypertension, benignPure hyperglyceri demiaChronic GERDObesity, unspecified 9 [facility]. [address], [id number] 0NS, [place], [place], [address], [place]. tel: [phone] [facility], [address], [place], [place], [address], tel: [phone] [facility] hypertension (chief complaint)hyp erlipidemia (chief complaint)Hea lt Maintenance (chief complaint) Hypertension , benignHypert riglyceridem iaChronic GERDErectile dysfunction, unspecified erectile dysfunction typeBody mass index (BMI) 37.0-37.9, adult 9 [facility] Alek. [address] [id number] 0NS, [place], [place], [address], [place]. tel: [phone] [facility], [address], [place], [place], [address], [place] tel: [phone] [facility] Follow Up of hypertension (chief complaint)Fol low Up of erectile dysfunction (chief complaint)Fol low Up of hyperlipidemi a (chief complaint)Fol low Up of HSV (chief complaint)hea lt maintenance (chief complaint) Male erectile dysfunction, unspecifiedP ure hyperglyceri demiaEssenti al (primary) hypertension Obesity, unspecifiedC hronic GERD 9 [facility] Jovanny. [address], [id number] 0NS, [place], [place], [address], [place]. tel: [phone] [facility], [address], [place], [place], [address], [place] tel: [phone] [facility] Follow Up of ER Visit (chief complaint)Hea lth Maintenance (chief complaint) ColitisBMI 38.0-38.9,ad ultDietary counselingHe alth educationPos itive depression screening 8 Tieri Patience. [address], [id number] 0NS, [place], [place], [address], [place]. tel: [phone] [facility], [address], [place], [place], [address], [place] tel: [phone] [facility] Back pain (chief complaint)Fol low Up of Hypertension (chief complaint)Fol low Up of Hyperlipidemi a (chief complaint)Fol low Up of Erectile dysfunction (chief complaint)Hea lth Maintenance (chief complaint) Essential (primary) hypertension Pure hyperglyceri demiaMale erectile dysfunction, unspecifiedO besity, unspecified 8 Cook Jovanny. [address], [id number] 0NS, [place], [place], [address], [place]. tel: [phone] [facility], [address], [place], [place], [address], [place] tel: [phone] [facility] Follow Up of Hypertriglyce ridemia (chief complaint)Hea lth Maintenance (chief complaint) Iron deficiency anemia, unspecified iron deficiency anemia typeObesity, unspecifiedO ther hyperlipidem ia 8 Cook Jovanny. [address], [id number] 0NS, [place], [place], [address], [place]. tel: [phone] [facility], [address], [place], [place], [address], [place] tel: [phone] [facility] Hypertension (follow up) (chief complaint)Fol low Up of Hyperglycerid emia (chief complaint)Hea lth Maintenance (chief complaint) Essential (primary) hypertension Pure hyperglyceri demiaMale erectile dysfunction, unspecifiedH erpes genitalis in menObesity, unspecified 8 [facility] Jovanny. [address], [id number] 0NS, [place], [place], [address], [place]. tel: [phone] [facility], [address], [place], [place], [address], [place] tel: [phone] [facility] hypertension (chief complaint)hyp erlipidemia (chief complaint)Hea lth Maintenance (chief complaint) Essential (primary) hypertension Male erectile dysfunction, unspecifiedP ure hyperglyceri demiaObesity , unspecifiedH erpes genitalis in men Dec- 8 [facility] Jovanny. [address], [id number] 0NS, [place], [place], [address], [place]. tel: [phone] [facility], [address], [place], [place], [address], [place] tel: [phone] [facility] hypertension (chief complaint)Hea lth Maintenance (chief complaint) Pure hyperglyceri demiaEssenti al (primary) hypertension Obesity, unspecified Sep- 7 Cook Jovanny. [address], [id number] 0NS, [place], [place], [address], [place]. tel: [phone] [facility], [address], [place], [place], [address], [place] tel: [phone] [facility] sore throat (chief complaint) Acute pharyngitis, unspecified etiology Sep-3 0 7 Kiranwilliam Alek. [address] [id number] 0NS, [place], [place], [address], [place]. tel: [phone] [facility], [address], [place], [place], [address], [place] tel: [phone] [facility] Follow Up of Hyperlipidemi a (chief complaint)Fol low Up of Hypertension (chief complaint)Fol low Up of Edema (chief complaint)Hea lth Maintenance (chief complaint) Essential (primary) hypertension Pure hyperglyceri demiaObesity , unspecifiedE ncounter for screening and preventative care Jun- 7 Joey Petty. [address], [id number] 0NS, [place], [place], [address], [place]. tel: [phone] [facility], [address], [place], [place], [address], [place] tel: [phone] [facility] HTN (chief complaint)Hea lth maintenance (chief complaint)hyp erlipidemia (chief complaint) Essential (primary) hypertension Pure hyperglyceri demiaObesity , unspecifiedH ealth educationCol on cancer screening 7 Shauna Bonds. [address], [id number] 0NS, [place], [place], [facility], [place]. tel: [phone] [facility], [address], [place], [place], [address], [place] tel: [phone] [facility] Hypertension (chief complaint)Col d symptoms (chief complaint) Allergic rhinitis, unspecifiedE ssential (primary) hypertension Pure hyperglyceri demiaHerpes genitalis in menObesity, unspecified 7 Joey Petty. [address], [id number] 0NS, [place], [place], [address], [place]. tel: [phone] [facility], [address], [place], [place], [address], [place] tel: [phone] [facility] toe nail removal (chief complaint) Ingrown left big toenailContu alyssa of left great toe with damage to nail, init encntr 6 Joey Petty. [address], [id number] 0NS, [place], [place], [address], [place]. tel: [phone] [facility], [address], [place], [place], [address], [place] tel: [phone] [facility] Follow Up of Paronychia of L great toe (chief complaint) Ingrown left big toenailHerpe s genitalis in menOther obesity due to excess calories 6 [facility]. [address], [id number] 0NS, [place], [place], [address], [place]. tel: [phone] [facility], [address], [place], [place], [address], [place] tel: [phone] [facility] Follow Up of Paronychia of L great toe (chief complaint) Paronychia of great toe of left footEssentia l (primary) hypertension Other obesity due to excess calories 6 [facility]. [address], [id number] 0NS, [place], [place], [address], [place]. tel: [phone] [facility], [address], [place], [place], [address], [place] tel: [phone] [facility] Hypertension (chief complaint)kallie t pain (chief complaint) Paronychia of great toe of left footEssentia l (primary) hypertension Pure hyperglyceri demiaUnspeci fied contact dermatitis, unspecified causeObesity , unspecified Jun- 6 [facility]. [address], [id number] 0NS, [place], [place], [address], [place]. tel: [phone] [facility], [address], [place], [place], [address], [place] tel: [phone] [facility] Follow Up of Candidiasis of penis (chief complaint) Herpes genitalis in menEssential (primary) hypertension Obesity, unspecified 0 6 [facility]. [address], [id number] 0NS, [place], [place], [address], [place]. tel: [phone] [facility], [address], [place], [place], [address], [place] tel: [phone] [facility] Follow Up of Hypertension (chief complaint)Fol low Up of ED (chief complaint)Fol low Up of Eczema (chief complaint) Essential (primary) hypertension Pure hyperglyceri demiaPedal edemaCandidi asis of penisObesity , unspecifiedV isit for suture removal Gee-0 6-201 6 [facility]. [address], [id number] 0NS, [place], [address] [place] [address], [place]. tel: [phone] [facility], [address], [place], [place], [address], tel: [phone] [facility] Follow Up of Hypertension (chief complaint)Fol low Up of Hyperglycerid emia (chief complaint)Fol low Up of ED (chief complaint)Fol low Up of Eczema (chief complaint) Essential (primary) hypertension Pure hyperglyceri demiaMale erectile dysfunction, unspecifiedU nspecified contact dermatitis, unspecified causeObesity , unspecified Mar-0 8-201 6 [facility]. [address], [id number] 0NS, [place], [address] [place] [address], [place]. tel: [phone] [facility], [address], [place], [place], [address], [place] tel: [phone] [facility] Hyperlipidemi a (follow up) med refill (chief complaint)Hyp ertension (follow up) med refill (chief complaint)ecz mendez cream triamcinolone refill (chief complaint)ED med refill (chief complaint) Essential (primary) hypertension Pure hyperglyceri demiaMale erectile dysfunction, unspecifiedO besity, unspecifiedU nspecified contact dermatitis, unspecified cause Dec-0 7-201 5 [facility]. [address], [id number] 0NS, [place], [place], [address], [place]. tel: [phone] OV [facility], [address], [place], [place], [address], [place] tel: [phone] [facility] Hyperlipidemi a med refills (chief complaint)Hyp ertension (follow up) (chief complaint)tri amcinolone acetonide refills (chief complaint) Essential (primary) hypertension Pure hyperglyceri demiaUnspeci fied contact dermatitis, unspecified causeObesity , unspecified Joey Petty. [address], [id number] 0NS, [place], [place], [address], [place]. tel: [phone] [facility], [address], [place], [place], [address], [place] tel: [phone] [facility] HTN (chief complaint)HYP ERLIPIDEMIA (chief complaint)ECZ MENDEZ (chief complaint) Hypertension , benignHypert riglyceridem iaErectile dysfunctionE [facility] Health education 5 Tonio Bowman. [address], [id number] 0NS, [place], [place], [address], [place]. tel: [phone] [facility], [address], [place], [place], [address], [place] tel: [phone] [facility] Physical chauffer license. (chief complaint) GENERAL MEDICAL EXAMHealth examination of defined subpopulatio nsObesity 5 Betsy Shafer. [address], [id number] 0NS, [place], [place], [address], [place]. tel: [phone] OV [facility], [address], [place], [place], [address], [place] tel: [phone] [facility] HTN (chief complaint)hyp ertriglycerid emia (chief complaint)ED (chief complaint) Hypertension , benignHypert riglyceridem iaErectile dysfunctionO [facility] 5 Joey Petty. [address], [id number] 0NS, [place], [place], [address], [place]. tel: [phone] PREVENTIVE TEST 40 TO 64 YRS OLD [facility], [address], [place], [place], [address], [place] tel: [phone] [facility] wellness exam (chief complaint) Well adult health checkHyperte nsion, benignHypert riglyceridem iaErectile dysfunctionE czemaObesity 4 [facility]. [address], [id number] 0NS, [place], [place], [address], [place]. tel: [phone] [facility], [address], [place], [place], [address], [place] tel: [phone] [facility] rash (chief complaint)Med refill (chief complaint) Screening for depressionHy pertension, benignHypert riglyceridem iaErectile dysfunctionE czemaObesity 4 [facility]. [address], [id number] 0NS, [place], [place], [address], [place]. tel: [phone] [facility], [address], [place], [place], [address], [place] tel: [phone] [facility] neck pain (chief complaint)hyp ertension (chief complaint)hyp erlipidemia (chief complaint) HYPERTENSION BENIGNHypert riglyceridem iaPain, neckObesityD ietary surveillance and counselingEx ercise counseling 4 [facility]. [address], [id number] 0NS, [place], [place], [address], [place]. tel: [phone] [facility], [address], [place], [place], [address], [place] tel: [phone] [facility] hypertension (chief complaint)hyp ertriglycerid emia (chief complaint)spencer matitis (chief complaint) HYPERTENSION BENIGNHypert riglyceridem iaObesityDie tary counselingEx ercise counselingCa ndidal intertrigoIn fluenza Vaccination 3 [facility]. [address], [id number] 0NS, [place], [place], [address], [place]. tel: [phone] PREVENTIVE TEST 40 TO 60 YRS OLD [facility], [address], [place], [place], [address], [place] tel: [phone] [facility] work physical (chief complaint) Healthcare maintenanceO besityDietar y counselingEx ercise counselingGE NERAL MEDICAL EXAM 3 No Information [facility], [address], [place], [place], [address], [place] tel: [phone] [facility] rash (chief complaint) DERMATITIS CONTACT NOS or EczemaObesit y 3 Tucker Christopher. [address], [id number] 0NS, [place], [address], [place]. tel: [phone] [facility], [address], [place], [place], [address], [place] tel: [phone] [facility] rash (chief complaint) Hypertension , benignHyperu ricemiaDerma titisObesity Hypertriglyc eridemia 3 [facility]. [address], [id number] 0NS, [place], [place], [address], [place]. tel: [phone] [facility], [address], [place], [place], [address], [place] tel: [phone] [facility] hypertension (chief complaint) Hypertriglyc eridemiaHYPE RTENSION BENIGNHyperu ricemiaObesi ty 3 [facility]. [address], [id number] 0NS, [place], [place], [address], [place]. tel: [phone] [facility], [address], [place], [place], [address], [place] tel: [phone] [facility] hypertension (follow up) (chief complaint)ere ctile dysfunction (chief complaint)nikia at hand swelling (chief complaint) Screening for depressionIM POTENCE ORGANIC ORGANObesity 3 Joey Petty. [address], [id number] 0NS, [place], [place], [address], [place]. tel: [phone] [facility], [address], [place], [place], [address], [place] tel: [phone] [facility] hypertension (follow up) (chief complaint) IMPOTENCE ORGANIC ORGAN 2 Joey Petty. [address], [id number] 0NS, [place], [place], [address], [place]. tel: [phone] [facility], [address], [place], [place], [address], [place] tel: [phone] [facility] hypertension (chief complaint) HYPERTENSION BENIGNObesit y 2 Cookyenni Kento. [address], [id number] 0NS, [place], [place], [address], [place]. tel: [phone] [facility], [address], [place], [place], [address], [place] tel: [phone] [facility] Nursing imunization (chief complaint) No Information 2 Joey Petty. [address], [id number] 0NS, [place], [place], [address], [place]. tel: [phone] [facility], [address], [place], [place], [address], [place] tel: [phone] [facility] f/u herpes (chief complaint)hyp ertension (chief complaint) ALLERGIC RHINTIS 2 Cookyenni Petty. [address], [id number] 0NS, [place], [place], [address], [place]. tel:[phone] OV [facility], [address], [place], [place], [address], [place] tel:[phone] [facility] f/u rash to to left side of chest, arm and back (chief complaint) Neuralgia, post-herpeti cHYPERTENSIO N BENIGNObesit y 2 Joey Arenasnando. [address], [id number] 0NS, [place], [place], [address], [place]. tel:[phone] OV [facility], [address], [place], [place], [address], [place] tel:[phone] [facility] shoulder pain (chief complaint) Herpes zoster without mention of complication HYPERTENSION BENIGNIMPOTE NCE ORGANIC ORGANATOPIC DERMATITUS-N OS 2 Betsy Shafer. [address], [id number] 0NS, [place], [place], [address], [place]. tel:[phone] OV [facility], [address], [place], [place], [address], [place] tel:[phone] [facility] hypertension (chief complaint)ere ctile dysfunction (chief complaint) HYPERTENSION BENIGNIMPOTE NCE ORGANIC ORGANObesity Other atopic dermatitis and related conditionsHY PERTENSION BENIGNObesit y 1 Joey Arenasnando. [address], [id number] 0NS, [place], [place], [address], [place]. tel:[phone] Family History Family Member Type Diagnosis Age [...] type Covered constitution party ID Authoriza tion(s) [facility] CI [id number] [facility] CI [id number] [facility] CI [id number] Social History Type Description Quantity Date Captured [...] Future Order: Lab Order CBC with Diff ([id number]), Sent on: Sent Future Order: Lab Order CMP ([id number]), S ent on: Sent Future Order: Lab Order LIPID PA TRISTA ([id number]), Sent on: Sent Future Order: Lab Order TSH ([id number]), S ent on: Sent Future Order: Lab Order URIC ACI D ([id number]), Sent on: Sent Future Order: Lab Order URINALYS IS ([id number]), Sent on: Sent Future Order: Lab Order CMP ([id number]), S ent on: Sent Future Order: Lab Order CBC w/di ff ([id number]), Sent on: Sent Future Order: Lab Order Lipid Pa trista ([id number]), Sent on: Sent Future Order: Lab Order TSH ([id number]), S ent on: Sent History Of Present Illness Encounter Date Complaint History Of Prese nt Illness Follow Up of Hypertension ([facility]) Risk factors include family history HTN, gout [...] yesterday. He had a colonoscopy done in [place] about one month ago that he says [...] CREAM Physical chauffer license. [employer] LICENSE, SEE FORM, NO ACTIVE C/O. HX [...] Related to Obesity, unspecified completed at the [facility] of 2016 per pt Related to [...] unspecified Patient encouraged t o go on www.[employer].gov for nutrition guidelines Related to Obesity, unspecified [...]
--- NOTE | 2025-04-14 11:36 | PC.NURSE ---
Surgeon at bedside talking with pt.
[2025-04-14] MEDS: PIPERACILLN/TAZ 3.375GM/NS50ML 3.375 GM/50 ML BAG IVPB ×2 (11:39→17:13)
--- NOTE | 2025-04-14 11:40 | P.HP_ITS ---
H&P: HPI History of Present Illness Date/Time: 04/14/25 11:40 Chief Complaint: Acute appendicitis Narrative: Patient is a 70-year-old gentleman who presents to the emergency room after having almost a week long history of some day abdominal pain which eventually localized to right lower quadrant the abdomen. He states the pain is never got over level 4/10. No nausea vomiting. He has continued to have normal bowel movements. In the Emergency was elevated white blood [place] count [place] [id number]. No fever. No tachycardia. Scan abdomen pelvis showed a dilated appendix with an appendicolith and inflammatory changes consistent with acute appendicitis which is non perforated and without abscess. He has a history of hypothyroidism, hypertension, hypercholesterolemia, and hdy-enuisvi-svkezppgr diabetes mellitus. He has never had abdominal surgery in the past. Review of Systems Review of Systems: The remainder of the review of systems to include constitutional, HEENT, cardiovascular, respiratory, GI, , integumentary, musculoskeletal, endocrine, immunologic, hematologic, psychiatric, and neurologic are all negative except for which is mentioned above in the HPI. [facility] Past Medical History Medical History Anemia Type 2 diabetes mellitus without complications Bilateral tinnitus Periodontal abscess Impingement of left shoulder Rotator cuff tendinitis Cervical radiculopathy Prediabetes Essential (primary) hypertension Dental root implant present (~02/2023) Erectile dysfunction Vitamin D deficiency Thalassemia alpha carrier Environmental allergies Hypothyroidism Hyperlipemia Surgical History Surgical History History of wisdom tooth extraction (~1994) Family History Family History Mother Lymphoma Sibling Breast cancer Hypertension Social History Social History Smoking status: Never smoker Alcohol intake: former Substance use: never Substance use type: does not use Lack of Transportation: No Lack of Food: Never True Current Housing: I Have Housing Concerned About Future Housing: No Difficulty Paying Gas/Electric Bills: No Difficulty Paying for Meds: No Currently Unemployed: No Education: High School Diploma/GED Difficulty w/ Childcare or Family Care: No Living arrangements: with family Occupation/Education: retired Gender identity (if verbalized by the patient): Male Agree to blood products: Yes Meds Home Medications and Allergies Home Medications ?Medication ?Instructions ?Recorded ?Confirmed ?Type cholecalciferol (vitamin D3) 25 25 mcg PO DAILY #90 tabs 03/20/25 03/20/25 Rx mcg (1,000 unit) tablet fluticasone propionate 50 2 spray intranasal DAILY PRN 03/20/25 03/20/25 Rx mcg/actuation nasal allergy symptoms #16 grams spray,suspension folic acid 1 mg tablet 1 mg PO DAILY #90 tabs 03/20/25 03/20/25 Rx levothyroxine 50 mcg tablet 50 mcg PO DAILY #90 tabs 03/20/25 03/20/25 Rx (Synthroid) losartan 25 mg tablet 25 mg PO DAILY #90 tabs 03/20/25 03/20/25 Rx sildenafil 25 mg tablet 25 mg PO DAILY PRN sexual activity 03/20/25 03/20/25 Rx #30 tabs simvastatin 20 mg tablet 20 mg PO QHS #90 tabs 03/20/25 03/20/25 Rx Allergies Allergy/AdvReac Type Severity Reaction Status Date / Time acetaminophen (From Percocet) Allergy Severe Dizziness Verified 04/14/25 09:27 oxycodone (From Percocet) Allergy Severe Dizziness Verified 04/14/25 09:27 tramadol AdvReac Severe Dizziness Verified 04/14/25 09:27 Vital Signs Vital Signs - 24 hr 04/14/25 09:07 Temperature 36.9 C Pulse Rate 66 Respiratory Rate 16 Blood Pressure 153/76 H Pulse Oximetry 99 Oxygen Delivery Room Air Exam Const: General: comfortable and no acute distress HENMT: Ears: TM's normal bilaterally Face/Nose/Sinus: Normal nares present Mouth: Yes moist mucous membranes Eyes: General: appearance normal, both eyes and all related structures Sclera: sclerae normal Pupils: Equal, round and reactive pupils present EOM: EOMs intact bilaterally Neck: Neck: supple and no JVD Resp: Effort & Inspection: normal respiratory effort Auscultation: clear to auscultation bilaterally Cardio: Rate: regular rate Rhythm: regular rhythm GI: Other: Abdomen is soft and nondistended. Mild tenderness to palpation right lower quadrant the abdomen over the area the appendix. No guarding and no rebound tenderness. No ventral hernias. No masses. Skin: General skin exam: normal color and no rashes or lesions noted Neuro: General: gait normal Speech: normal speech Motor exam (neuro): 5/5 motor strength present throughout Sensory Exam: normal sensation Extrem: General: normal to inspection Psych: Mental Status: mental status grossly normal Affect: normal affect H&P: Results Labs Labs: Short CBC 04/14/25 Range/Units 09:26 WBC 10.8 H (4.5-10.0) K/mm3 Hgb 12.3 L (14.0-18.0) g/dL Hct 41.2 L (42.0-52.0) % Plt Count 293 (150-375) k/mm3 BMP 04/14/25 09:26 Sodium 139 Potassium 4.0 Chloride 104 Carbon Dioxide 24 BUN 13 Creatinine 0.89 Glucose 105 Calcium 9.2 Liver Function 04/14/25 Range/Units 09:26 Total Bilirubin 0.5 (0.2-1.3) mg/dL AST 31 (17-59) U/L ALT 19 (6-50) U/L Alkaline Phosphatase 74 (38-126) U/L Albumin 4.5 (3.5-5.1) g/dL Imaging CT scan - abdomen: Radiologist's impression: CT Scan Report Signed Patient: Kush Zhu : 1955 MR#: [id number] Age: 70 Acct:[id number] Loc: [facility] ADM Date: 04/14/25Attending Dr: Ordering Physician: Clarence Magdaleno MD Date of Service: 04/14/25 Procedure(s): CT abdomen pelvis w con Accession Number(s): [id number] cc: Clarence Magdaleno MD; Cherise Aguilera MD~ CLINICAL INDICATION: Right lower quadrant pain COMPARISON: None. TECHNIQUE: Multiple contiguous axial images of the abdomen and pelvis were performed following the administration of with 100 mL Omnipaque-350 intravenous contrast The dose-length product (DLP) was 465.76 mGy-cm. Automated exposure control and iterative reconstruction technique were employed. FINDINGS/OBSERVATIONS: Visualized lower thorax: Trace bibasilar atelectasis. The remainder of the bilateral lung bases are clear The heart is borderline enlarged, without pericardial effusion. Small hiatal hernia is present. Liver: The liver demonstrates homogeneous enhancement and is borderline enlarged measuring 19 cm in longitudinal dimension. Gallbladder and biliary system: The gallbladder is decompressed, and otherwise unremarkable. Pancreas: The pancreas enhances homogeneously without ductal dilatation. Spleen: The spleen enhances homogeneously and is not enlarged. Kidneys: The bilateral kidneys enhance symmetrically without hydronephrosis or renal calculi. Pararenal cyst within the left kidney. Adrenal glands: Unremarkable. Gastrointestinal tract: Colonic diverticulosis without surrounding inflammatory change. Appendix: The fluid-filled appendix is distended measuring 18 mm in caliber with a large appendicolith, and surrounding inflammatory change. No gross perforation is identified. No drainable fluid collection is identified (at this time). Vasculature: Unremarkable. Lymph nodes: No pathologically enlarged or morphologically suspicious lymph nodes within the retroperitoneum or at the root of the mesentery. Scattered nonpathologically enlarged lymph nodes within the mesentery of the right lower quadrant. Pelvic structures: The bladder is distended, and otherwise unremarkable. The prostate gland is enlarged, demonstrating mass effect on the base of the bladder. Body wall and musculoskeletal: No umbilical hernia. Age-appropriate degenerative disease within the lower thoracic and lumbosacral spine. IMPRESSION: Findings consistent with acute appendicitis, as detailed above. Reviewed, dictated and finalized at location A. Please be advised this is a medical document. It is intended for jffn-ew-kyoh co mmunication. It is written in medical language and may contain unfamiliar abbreviations or verbiage. Medical documents are intended to carry relevant information, facts as evident, and the clinical opinion of the practitioner at the time of the encounter. This report may have been done utilizing a voice recognition system. Attempts have been made to correct errors. However, there may be uncorrected grammatical, spelling, and recognition errors present. The file time of this note does not necessarily represent the time of service. Dictated By: Priti Beck MD 04/14/25 1021 Signed By: <Electronically signed by Priti Beck MD in OV> 04/14/25 1035 Assessment and Plan Assessment and plan (1) Acute appendicitis: Code(s): K35.80 - Unspecified acute appendicitis Status: Acute Assessment and Plan: Patient appears to have acute appendicitis by exam and by imaging. Does not appear to perforated on imaging. He started on Zosyn for IV antibiotics. Kept NPO. Will need to go to the operating this afternoon for emergent laparoscopic appendectomy possible conversion open appendectomy. Risks, benefits, indications, and expected outcomes were discussed in detail with the patient and/or family. They understand and I have answered all other questions. They wished to proceed with surgery as outlined above.
--- NOTE | 2025-04-14 11:45 | WPDANESEPP ---
Anes - Eval Pre Procedure Procedure: Operation Date: 04/14/25 12:00 Proposed Procedures p Laparoscopic Appendectomy - Timothy Borrego MD Date/Time: 04/14/25 11:45 Surgeon: Dr. Borrego Preop Diagnosis: Acute Appendicitis Pre Op Diagnosis: abdominal pain Patient Data Age: 70 Gender: M Height: 1.8 m Weight: 99 kg Last Vital Signs Temp 98.4 F 04/14/25 09:07 Pulse 66 04/14/25 09:07 Resp 16 04/14/25 09:07 BP 153/76 H 04/14/25 09:07 Pulse Ox 99 04/14/25 09:07 O2 Del Method Room Air 04/14/25 09:07 Allergies Allergy/AdvReac Type Severity Reaction Status Date / Time acetaminophen (From Percocet) Allergy Severe Dizziness Verified 04/14/25 09:27 oxycodone (From Percocet) Allergy Severe Dizziness Verified 04/14/25 09:27 tramadol AdvReac Severe Dizziness Verified 04/14/25 09:27 Home Medications ?Medication ?Instructions ?Recorded ?Confirmed ?Type cholecalciferol (vitamin D3) 25 25 mcg PO DAILY #90 tabs 03/20/25 03/20/25 Rx mcg (1,000 unit) tablet fluticasone propionate 50 2 spray intranasal DAILY PRN 03/20/25 03/20/25 Rx mcg/actuation nasal allergy symptoms #16 grams spray,suspension folic acid 1 mg tablet 1 mg PO DAILY #90 tabs 03/20/25 03/20/25 Rx levothyroxine 50 mcg tablet 50 mcg PO DAILY #90 tabs 03/20/25 03/20/25 Rx (Synthroid) losartan 25 mg tablet 25 mg PO DAILY #90 tabs 03/20/25 03/20/25 Rx sildenafil 25 mg tablet 25 mg PO DAILY PRN sexual activity 03/20/25 03/20/25 Rx #30 tabs simvastatin 20 mg tablet 20 mg PO QHS #90 tabs 03/20/25 03/20/25 Rx Laboratory Tests 04/14/25 09:26 WBC 10.8 H K/mm3 (4.5-10.0) RBC 5.49 M/mm3 (4.6-6.20) Hgb 12.3 L g/dL (14.0-18.0) Hct 41.2 L % (42.0-52.0) MCV 75.0 L fl (80-100) MCH 22.4 L pg (26-34) MCHC 29.9 L g/dl (32-36) RDW 15.3 H % (11.5-14.5) Plt Count 293 k/mm3 (150-375) MPV 9.6 fl (7.4-10.4) Immature Gran % (Auto) 0.3 % (0-0.5) Neut % (Auto) 71.3 % (45.5-73.1) Lymph % (Auto) 20.5 % (18.3-44.2) Richardson % (Auto) 6.8 % (2.6-8.5) Eos % (Auto) 0.6 % (0-4.4) Baso % (Auto) 0.5 % (0.2-1.2) Lymph # (Auto) 2.21 K/mm3 (0.9-3.2) Richardson # (Auto) 0.7 H K/mm3 (0.1-0.6) Eos # (Auto) 0.1 K/mm3 (0-0.3) Baso # (Auto) 0.1 K/mm3 (0.0-0.1) Abs Immat Gran (auto) 0.03 K/mm3 (0.00-0.031) Absolute Neuts (auto) 7.7 H K/mm3 (1.3-6.7) Absolute Nucleated RBC 0.000 K/mm3 (0.0-0.012) Band Neutrophils % Not Reportable Nucleated RBC % 0.0 % (0.0-0.2) Platelet Estimate Adequate (Adequate) Hypochromasia 1+ Ovalocytes 1+ Schistocytes None seen Sodium 139 mmol/L (137-145) Potassium 4.0 mmol/L (3.4-5.0) Chloride 104 mmol/L (98-107) Carbon Dioxide 24 mmol/L (22-30) Anion Gap 11 mmol/L (4-12) BUN 13 mg/dL (9-20) Creatinine 0.89 mg/dL (0.7-1.3) Estim Creat Clear Calc 84 ml/min Estimated GFR > 60 (59 - ) Glucose 105 mg/dL (65-110) Calcium 9.2 mg/dL (8.4-10.2) Total Bilirubin 0.5 mg/dL (0.2-1.3) AST 31 U/L (17-59) ALT 19 U/L (6-50) Alkaline Phosphatase 74 U/L (38-126) Total Protein 9.1 H g/dL (6.3-8.2) Albumin 4.5 g/dL (3.5-5.1) Lipase 62 U/L (23-300) ECG: pending Patient hx anesthesia problems: none Family hx anesthesia problems: none Prior surgeries: none Results Review: All pre-operative results and documents have been reviewed as part of the pre-operative evaluation. [facility] Past Medical History Medical History Anemia Type 2 diabetes mellitus without complications Bilateral tinnitus Periodontal abscess Impingement of left shoulder Rotator cuff tendinitis Cervical radiculopathy Prediabetes Essential (primary) hypertension Dental root implant present (~02/2023) Erectile dysfunction Vitamin D deficiency Thalassemia alpha carrier Environmental allergies Hypothyroidism Hyperlipemia Surgical History Surgical History History of wisdom tooth extraction (~1994) Family History Family History Mother Lymphoma Sibling Breast cancer Hypertension Social History Social History Smoking status: Never smoker Alcohol intake: former Substance use: never Substance use type: does not use Lack of Transportation: No Lack of Food: Never True Current Housing: I Have Housing Concerned About Future Housing: No Difficulty Paying Gas/Electric Bills: No Difficulty Paying for Meds: No Currently Unemployed: No Education: High School Diploma/GED Difficulty w/ Childcare or Family Care: No Living arrangements: with family Occupation/Education: retired Gender identity (if verbalized by the patient): Male Agree to blood products: Yes Exam Day of Procedure 04/14/25 11:45 Patient weight: overweight (BMI 30.4) Neurological: alert and oriented
--- NOTE | 2025-04-14 11:47 | WPDHPUPDATE1 ---
History and Physical Update Update Date/Time: 04/14/25 11:47 History and Physical has been reviewed, including an updated exam of the patient. There are NO changes in the patient's condition. Risks, benefits, and alternatives have been discussed and questions answered. Patient agrees to proceed with procedure.
[2025-04-14 11:48] LABS: Add Urine Microscopic? NO; Appearance Urine Clear (Clear); Glucose Urine UA Negative (Negative); Leukocyte Esterase Ur Negative LEU/UL (Negative); Nitrate Urine Negative (Negative); Specific Grav Ur > 1.045 (1.001-1.035)
--- NOTE | 2025-04-14 12:04 | P.PNAN_ITS ---
Anes - Eval Final PreProcedure Day of Procedure 04/14/25 12:04 Patient weight: overweight Neurological: alert and oriented Last oral intake: >/= 8 hours ASA classification: III Emergent: yes Anesthetic plan: proceed Anesthesia type and monitoring: general ETT Results Review: All pre-operative results and documents have been reviewed as part of the pre- operative evaluation. Informed Consent: The patient's anesthetic plan and its attendant risks and benefits were discu ssed with the patient/family/POA. Questions were solicited and answers provided to the satisfaction of the patient/family/POA.
--- NOTE | 2025-04-14 12:12 | P.PNAN_ITS ---
Anes - Eval Final PreProcedure Day of Procedure 04/14/25 12:12 Patient weight: overweight Heart: regular rate and rhythm Lungs: clear to auscultation Airway: Mallampati scale class II Neurological: alert and oriented Last oral intake: >/= 8 hours ASA classification: III Emergent: yes Anesthetic plan: proceed Anesthesia type and monitoring: general ETT and standard monitoring Results Review: All pre-operative results and documents have been reviewed as part of the pre- operative evaluation. Informed Consent: The patient's anesthetic plan and its attendant risks and benefits were discussed with the patient/family/POA. Questions were solicited and answers provided to the satisfaction of the patient/family/POA.
[2025-04-14] MEDS: LIDO 1%/EPINEPHRINE 1:100,000 20 ML VIAL 30 ML INFILTRATE (12:44)
[2025-04-14] MEDS: BUPivacaine HCL 0.5% 10 ML AMP 30 ML INFILTRATE (12:46)
--- NOTE | 2025-04-14 13:17 | S_PTH ---
PATIENT: Kush Zhu LOC: WFH4HDM #:[id number] AGE/SX: 70/M ROOM: 257 RE04/14/[address]: Timothy Borrego MD : 1955 BED: 01 DIS: 04/15/2025 SPEC #: [id number] RECD: 04/16/25 07:44 STATUS: FRANCESCA REQ #: [id number] BOAZ: 04/14/25 13:[address]: Timothy Borrego DEPT: [facility] Surgical RECD BY: Jazmín Thomas ENTERED: 04/16/25 07:45 SP TYPE: Surgical OTHR DR: Cherise Aguilera MD Tissues: A - Appendix Procedures: Hematoxylin and Eosin Stain Gross and Microscopic Level 3
[2025-04-14] MEDS: LACTATED RINGERS 1,000 ML 30 ML IV CONT ×2 (13:44)
--- NOTE | 2025-04-14 13:53 | W.PM.PROC2 ---
Procedure Note - Detailed Date of Procedure 04/14/25 Pre-op Diagnosis Acute appendicitis Post-op Diagnosis Same Procedure Performed Laparoscopic appendectomy Surgeon Timothy Borrego MD Anesthesia General Indications Patient is a 70-year-old gentleman who has bad about a 1 week history of some vague abdominal pain which is now localized to right lower quadrant the abdomen. Workup in the emergency room [place] [address] [place] scan abdomen pelvis showed a dilated appendix with an appendicolith and inflammation consistent with acute appendicitis but without rupture or abscess. Presents now for emergent laparoscopic appendectomy. Findings Patient had a dilated and inflamed retrocecal acute appendicitis. Required mobilization of the cecum medially access the appendix. There was no rupture or abscess noted. Description of Procedure After informed consent was obtained patient was brought to the operating room placed supine position and general endotracheal anesthesia was administered. Swann catheter was placed decompress the bladder. The abdomen is then prepped and draped usual sterile fashion. A time-out was then performed correctly identifying the patient as well as procedure to be performed. I 1st started by entering the abdomen left upper quadrant utilizing a 5mm Optiview port. Once inside the abdomen insufflated to adequate pneumoperitoneum of 15mmHg of CO2. I then placed a 12mm periumbilical trocar port as well as a 5mm suprapubic trocar port and a 5mm right lower quadrant trocar port all under direct visualization working through these ports I was then able identify the base of the appendix and the appendix curled up underneath the cecum and was densely adherent to the cecum in a retrocecal position. Utilizing blunt dissection and tip dissection as well as sharp scissor dissection I was able to incise the peritoneum lateral to the cecum and mobilized the cecum medially to access the retrocecal appendix. I then the appendix from the posterior wall the cecum with blunt dissection. I then made a defect through the mesoappendix with a right angle laparoscopic clamp and then used a 45mm Endo-MANOLO stapler to divide the appendix flush with the cecum. A vascular reload to the same laparoscopic stapler was then used to divide the mesoappendix. The appendix was then placed into an Endo-Catch bag and brought out through the periumbilical trocar port site. It was passed off table sent to pathology for examination. I then reached the pneumoperitoneum replace the port. I then irrigated out the right lower quadrant the abdomen and the staple lines with sterile saline solution. Both staple lines were intact without any bleeding. I then aspirated the fluid from the right lower quadrant the abdomen and then irrigated out the pelvis and aspirated the fluid from the pelvis. I then proceeded to close the periumbilical trocar port fascial defect which was 12mm with a 0 Vicryl suture placed with a suture Passer transfascially. All the trocar ports were then removed under direct visualization all port sites were hemostatic. The abdomen was allowed to decompress. The 12mm trocar port was then closed with 0 Vicryl suture. All the trocar ports were then hemostatic and then I closed all the trocar ports at the skin level utilizing a running subcuticular 4 Monocryl suture. The incisions were then cleaned the skin glue was applied. The patient tolerated the procedure well no complications. All sponges, needles, and instrument counts were correct at the end procedure. EBL was _25__cc. The patient was awakened and taken to recovery in stable and satisfactory condition. Implants None Estimated Blood Loss 25 Drains No Packing No Pathology Yes (Appendix to pathology) Complications No immediate complications Condition Stable Disposition PACU [facility] Billing Surgery - Charge Forward: Surgery Billing
[2025-04-14] MEDS: fentaNYL CITRATE INJ (*CRX) 100 MCG/2 ML VIAL 25 MCG IV PUSH ×4 (14:04→14:16)
--- NOTE | 2025-04-14 14:50 | ADMGEN ---
This patient, Kush Zhu, was admitted to 2 Medical Room 257-01. Patient/family oriented to hospital policies and general routines including ID bracelet, bed and alarms, visiting hours, pain management, procedures, bathroom and other care routines, personal items, smoking policy, room service/diet, and visiting hours. Information on how to activate the Rapid Response Team has been discussed. Patient/Family are encouraged to report perceived risks to care and to ask questions if they do not understand what they are told or what they should do.
[2025-04-14] MEDS: LACTATED RINGERS 1,000 ML 100 ML IV CONT (15:45)
[2025-04-14] MEDS: IBUPROFEN 600 MG TABLET PO (17:40)
[2025-04-14] MEDS: ONDANSETRON INJ 4 MG/2 ML VIAL IV PUSH (21:38)
[2025-04-15] MEDS: PIPERACILLN/TAZ 3.375GM/NS50ML 3.375 GM/50 ML BAG IVPB (00:10)
[2025-04-15 00:58] VITALS: BP 116/60; PULSE 79; RESP 16; TEMP 36.8; O2SAT 96
[2025-04-15] MEDS: LACTATED RINGERS 1,000 ML 100 ML IV CONT (02:38)
[2025-04-15 05:35] VITALS: BP 110/57; PULSE 74; RESP 16; TEMP 36.4; O2SAT 98
[2025-04-15 08:00] VITALS: PULSE 78; RESP 16; O2SAT 98
[2025-04-15 08:58] VITALS: BP 130/70; PULSE 78; RESP 16; TEMP 36.4; O2SAT 98
[2025-04-15] MEDS: IBUPROFEN 600 MG TABLET PO (09:02)
--- NOTE | 2025-04-15 12:18 | PM.DS ---
DS: Admitting Diagnosis Discharge Date April 15, 2025 Admitting Diagnosis Acute appendicitis DS: Discharge Diagnosis Discharge Diagnosis (1) Acute appendicitis: Code(s): K35.80 - Unspecified acute appendicitis Status: Acute DS: Summary Hospital Course Reason for hospitalization: Acute appendicitis status post laparoscopic appendectomy Hospital Course: Patient presented to the [facility] Emergency Room on April 14, 2025 complaining of a week long history of persistent mild right lower quadrant abdominal pain which he rated a 4/10 on a daily basis. He had no nausea or vomiting and no diarrhea. No fever at home. Upon workup in the emergency room he was noted to have a very slightly elevated white blood cell count [id number]. CT scan abdomen pelvis was then performed showing a dilated and inflamed appendix the right lower quadrant with an appendicolith within the appendix. No perforation or periappendiceal abscess was seen. He was given IV antibiotics in the emergency room to include Zosyn. He was kept NPO and given some IV fluids. I then evaluated the patient in the emergency room and scheduled for emergent laparoscopic appendectomy. He then went to the operating room and underwent uncomplicated laparoscopic appendectomy. The appendix was located in the retrocecal position. Postoperatively his course and recovery was uneventful and he was transferred to the surgical floor for routine postoperative care. On the surgical floor he was started on clear liquids and advanced to regular diet without difficulty. He was given 2 more doses of IV antibiotics and then they were discontinued. He was able to get up and ambulate to the bathroom without difficulty and was sitting up in a chair when I saw him on the day of discharge. He was doing very well incisions were healing well without any redness or drainage from his incisions. He was only taking ibuprofen p.o. for pain. On postop day 1 he was doing very well and was discharged home in improved condition. Status at Discharge Functional status at discharge: independent ambulation Overall status at discharge: patient is back to baseline Time Spent with Patient Time attestation: Total time spent providing and/or coordinating discharge services: Time spent: Less than 30 minutes Exam GI: Other: Abdomen is soft and nondistended. All port site incisions are healing without any redness or drainage or bleeding. No ecchymosis around the incisions. Abdomen is slightly distended but otherwise benign. His right lower quadrant pain is now gone. DS: Data Data Completed and Pending Pending studies at discharge: Pending at discharge 04/14/25 13:17 Surgical [PTH] Routine Discharge Plan Discharge Attending physician on discharge: Timothy Borrego Discharging Clinician: Timothy Borrego Anticipated Discharge Date/Time: 04/15/25 12:15 Patient Disposition: Home Activity: may shower and other - see discharge instructions Diet: regular Wound Care Instructions: other - see discharge instructions Discharge Instructions: May discharge home when stable. Follow up with Dr. Borrego in the office in 2 weeks. Patient to call [phone] for an appointment. May shower in 24hours but do not soak incisions under water for 2 weeks. No lifting more than 10 to 15 lb for 2 weeks. May advance diet as tolerated. No driving for at least 3 days or until no longer taking any narcotic pain medication. Resume all home medications. May use Tylenol and/or ibuprofen for postoperative pain. Patient Instructions: Antibiotic Form Patient Language: [place] Citizen Stand Alone Forms: General Discharge Information Follow-up/Referrals: David Aguilera MD [Primary Care Provider] - Timothy Borrego MD [Physician] - (Follow-up Dr. Borrego in the office in 2 weeks. Patient to call [phone] for an appointment.) Discharge Medications: Continued cholecalciferol (vitamin D3) 25 mcg (1,000 unit) tablet 25 mcg PO DAILY Qty: 90 3RF fluticasone propionate 50 mcg/actuation spray,suspension 2 spray intranasal DAILY PRN (Reason: allergy symptoms) Qty: 16 2RF folic acid 1 mg tablet 1 mg PO DAILY Qty: 90 2RF levothyroxine [Synthroid] 50 mcg tablet 50 mcg PO DAILY Qty: 90 2RF losartan 25 mg tablet 25 mg PO DAILY Qty: 90 2RF simvastatin 20 mg tablet 20 mg PO QHS Qty: 90 2RF sildenafil 25 mg tablet 25 mg PO DAILY PRN (Reason: sexual activity) Qty: 30 1RF Rx Instructions: administer 30 minutes to 4 hours before activity Date of admission: 04/14/25 13:39 Primary Care Provider: David Aguilera Admitting Provider: Timothy Borrego Attending physician on admission: Timothy Borrego Condition: Stable
== END 2025-04-15 13:41 | disposition home or self-care (01) ==
LOC: ANHED 11:06 → ANHSURGERY 11:11 → ANH2MED 14:42
PROVIDERS: Admitting Provider Surgery; Emergency Provider Emergency Medicine; PCP Family Medicine; Visit Provider Surgery
PROC: 0DTJ4ZZ Resection of Appendix, Percutaneous Endoscopic Approach (ICD-10-PCS; CPT 44970; principal; 2025-04-14 12:00)
DX: K36 Other appendicitis (principal); E11.9 Type 2 diabetes mellitus without complications; E03.9 Hypothyroidism, unspecified; I10 Essential (primary) hypertension; E78.00 Pure hypercholesterolemia, unspecified; Z79.899 Other long term (current) drug therapy
CPT/HCPCS: 44970; 36415; 74177; 80053; 81003; 83690; 85025; 88304; 93005; 96361; 96374; 96375; 99285; A9270; G0378; J1885; J2003; J2004; J2250; J2405; J2543; J2704; J3010; J7030; J7120; Q9967

== ENCOUNTER 2025-05-14 14:24 | Outpatient (CLI) | payer MEDICARE, OTHER, SELFPAY ==
--- NOTE | ~2025-05-14 | MR_ITS ---
MRI of the brain Clinical History: Amnesia Technique: Axial and sagittal T1-weighted images were acquired. These were followed by axial T2-weigh mahi, diffusion weighted, gradient, and FLAIR images. Findings: No abnormal signal seen in the brain parenchyma. No acute infarct, intracranial hemorrhage or mass lesion. Ventricles and subarachnoid spaces are unremarkable. Orbits are unremarkable. Paranasal sinuses and m astoid air cells are clear. Major intracranial flow voids are intact. Sagittal midline structures are intact. IMPRESSION: Unremarkable exam. Reviewed, dictated and finalized at location M. IMPRESSION: Unremarkable exam.
== END 2025-05-14 14:25 | disposition home or self-care (01) ==
LOC: MICIMG 14:26
PROVIDERS: PCP Family Medicine; Visit Provider Family Medicine
DX: R41.3 Other amnesia (principal)
CPT/HCPCS: 70551